=== PATIENT | female | born 1980 | race Caucasian/White ===

== ENCOUNTER 2016-10-07 15:53 | Observation (INO) | payer MEDICAID ==
[2016-10-07] MEDS ORDERED: Sodium Chloride 0.9% 10 ML Syringe FLUSH PRN (16:50)
[2016-10-07] MEDS ORDERED: Prochlorperazine 10 MG/2 ML SDV IVPUSH ONE (16:51)
[2016-10-07] MEDS ORDERED: Ketorolac 30 MG/ML SDV IVPUSH ONE (16:51)
--- NOTE | 2016-10-07 16:54 | EDM.PDOC ---
ED HPI GI/ABDOMINAL - General Chief Complaint: Gastrointestinal Problem Stated Complaint: NAUSEA/VOMITING/STOMACH PAIN Time Seen by Provider: 10/07/16 16:43 Source: Reports: Patient, Family, RN notes reviewed History Limitations: Reports: No limitations - History of Present Illness INITIAL COMMENTS - FREE TEXT/NARRATIVE: 36 yo female presents emergency department for a complaint of nausea and vomiting for the last 3 days inability to keep food products down states she vomits liquids almost immediately does have abdominal pain predominately after eating history of Taco-en-Y approximately 3 months ago, was sent over from the clinic - Related Data Allergies/ADRs: Allergies Allergy/AdvReac Type Severity Reaction Status Date / Time bupropion [From Wellbutrin] Allergy Other Verified 10/07/16 16:28 codeine Allergy Pain Verified 10/07/16 16:28 latex Allergy Rash Verified 10/07/16 16:28 pantoprazole sodium Allergy Rash Verified 10/07/16 16:28 [From Protonix] Penicillins Allergy Rash Verified 10/07/16 16:28 fentanyl AdvReac Delusions Verified 10/07/16 16:28 promethazine HCl AdvReac Delusions Verified 10/07/16 16:28 [From Phenergan] Home Meds: Home Meds Doxepin [SINEquan] 75 mg PO BEDTIME 11/30/15 [History] QUEtiapine Fumarate [Quetiapine Fumarate] 300 mg PO BEDTIME 12/17/15 [History] Albuterol Sulfate [Proair Hfa] 2 puff IH Q6H PRN 03/20/16 [History] Omeprazole 40 mg PO ACBREAKFAST 03/20/16 [History] OLANZapine [Olanzapine] 10 mg PO BEDTIME 04/23/16 [History] Levothyroxine 0.175 mcg PO DAILY 07/19/16 [History] Cyanocobalamin (Vitamin B-12) [Vitamin B-12] 1,000 mcg PO DAILY 07/22/16 [ History] Prazosin [Minpress] 1 mg PO BEDTIME 07/22/16 [History] Rizatriptan Benzoate [Maxalt] 10 mg PO ASDIRECTED PRN 07/22/16 [History] Verapamil [Calan SR] 120 mg PO DAILY 07/22/16 [History] lamoTRIgine [Lamictal] 100 mg PO DAILY 07/22/16 [History] Dicyclomine [Bentyl] 10 mg PO QID 07/24/16 [History] Zolpidem Tartrate [Ambien] 10 mg PO BEDTIME 07/24/16 [History] Ondansetron [Zofran ODT] 4 mg PO Q4H PRN #30 tab.dis 07/28/16 [Rx] FLUoxetine [PROzac] 40 mg PO DAILY 08/02/16 [History] Fluticasone/Vilanterol [Breo Ellipta 200-25 Mcg INH] 1 each IH DAILY 09/06/16 [ History] Gabapentin [Neurontin] 600 mg PO TID 09/10/16 [History] Past Medical History HEENT History: Reports: Impaired vision Other HEENT History: wears glasses Cardiovascular History: Reports: High cholesterol Respiratory History: Reports: Asthma, Bronchitis, recurrent, Sleep apnea Gastrointestinal History: Reports: Chronic constipation, Chronic diarrhea, Colon polyp, GERD, GI bleed, Irritable bowel syndrome, Other (see below) Other Gastrointestinal History: colitis, fatty liver Genitourinary History: Reports: UTI, recurrent OUTDOOR ADVENTURE GUIDES History: Reports: Dysfunctional uterine bleeding, Musculoskeletal History: Reports: Arthritis, Back pain, chronic, Fracture, Osteoarthritis, Other (see below) Other Musculoskeletal History: left foot hardware. hardware removed left foot Neurological History: Reports: Migraines Psychiatric History: Reports: Anxiety, Bipolar, Depression, Psych Hospitalization(s), PTSD, Suicide attempt, Suicidal ideation Endocrine/Metabolic History: Reports: Hypothyroidism, Obesity/BMI 30+, Vitamin D deficiency Hematologic History: Reports: B12 deficiency Immunologic History: Reports: None Oncologic (Cancer) History: Reports: None Dermatologic History: Reports: None - Infectious Disease History Infectious Disease History: Reports: Chicken pox - Past Surgical History GI Surgical History: Reports: Bariatric procedure, Cholecystectomy, Colonoscopy , EGD, Polypectomy Female Surgical History: Reports: section, Hysterectomy, Salpingo- oophorectomy Musculoskeletal Surgical History: Reports: Arthroscopic knee, Other (see below) Other Musculoskeletal Surgeries/Procedures:: L1 6 screws and a cage 2006 Social & Family History - Family History Family Medical History: Noncontributory - Tobacco Use Smoking Status *Q: Former Smoker Years of Tobacco use: 1 Packs/Tins Daily: 1 Used Tobacco, but Quit: Yes Month Tobacco Last Used: 09 Second Hand Smoke Exposure: No - Caffeine Use Caffeine Use: Reports: None - Alcohol Use Days Per Week of Alcohol Use: 0 - Recreational Drug Use Recreational Drug Use: No Drug Use in Last 12 Months: No - Living Situation & Occupation Living situation: Reports: (living at "old middle school" apartments in [facility]), single Occupation: disabled ED ROS GENERAL - Review of Systems Review Of Systems: See Below Constitutional: Denies: fever, chills HEENT: Reports: No symptoms Respiratory: Reports: no symptoms Cardiovascular: Reports: No symptoms GI/Abdominal: Reports: Abdominal pain, Flatus, Nausea, Vomiting ED EXAM, GI/ABD - Physical Exam Exam: See Below Text/Narrative:: General: female, not in any distress, alert and oriented x3 HEENT: head is atraumatic normocephalic, eyes pupils equal round reactive to light and accommodation sclera clear no conjunctivitis appreciated. Ears tympanic membranes clear and vazquez landmarks and light reflex are present bilaterally canals are clear. Nose no septal deviation, nares are clear, no blood present. Mouth mucosa is moist and pink no erythema or exudate noted in soft palate, tongue is midline uvula is midline, dentition is intact. Neck: Supple no thyromegaly no tracheal deviation. Nodes: Cervical nodes subclavicular nodes nontender no palpable lymphadenopathy noted. Lungs: clear to auscultation bilaterally with symmetrical respirations, no adventitious noise appreciated. CV: Regular rate and rhythm S1 and S2 appreciated no murmurs rubs or gallops noted. Abdomen: Soft, nontender, no palpable masses or organomegaly appreciated, no distention no guarding bowel sounds are present, ]. Neuro: Cranial nerves II through XII grossly intact Skin: Warm and dry, intact Extremities: No lower extremity edema appreciated, Course - Vital Signs Last Recorded V/S: Last Vital Signs Temp 97.0 F 10/07/16 16:18 Pulse 110 H 10/07/16 16:18 Resp 18 10/07/16 16:18 BP 118/70 10/07/16 16:18 Pulse Ox 97 10/07/16 16:18 - Orders/Labs/Meds Orders: Active Orders 24 hr Category Date Time Status Peripheral IV Care [RC] . DIRECTED Care 10/07/16 16:50 Active CULTURE URINE [RM] Urgent Lab 10/07/16 18:31 Uncollected Lactated Ringers [Ringers, Lactated] 1,000 ml Med 10/07/16 17:00 Active IV ASDIRECTED Sodium Chloride 0.9% [Saline Flush] Med 10/07/16 16:50 Active 10 ml FLUSH ASDIRECTED PRN Peripheral IV Insertion Adult [OM.PC] Urgent Oth 10/07/16 16:50 Ordered Medication Orders Lactated Ringer's (Ringers, Lactated) 1,000 mls @ 999 mls/hr IV ASDIRECTED ADRIEN Last Admin: 10/07/16 17:08 Dose: 999 mls/hr Sodium Chloride (Saline Flush) 10 ml FLUSH ASDIRECTED PRN PRN Reason: Keep Vein Open Labs: Laboratory Tests 10/07/16 10/07/16 10/07/16 Range/Units 17:01 17:01 17:01 WBC 5.1 (4.5-11.0) K/uL RBC 4.68 (3.30-5.50) M/uL Hgb 15.1 H (12.0-15.0) g/dL Hct 43.0 (36.0-48.0) % MCV 92 (80-98) fL MCH 32 H (27-31) pg MCHC 35 (32-36) % Plt Count 189 (150-400) K/uL Neut % (Auto) 56 (36-66) % Lymph % (Auto) 32 (24-44) % Marin % (Auto) 9 H (2-6) % Eos % (Auto) 2 (2-4) % Baso % (Auto) 1 (0-1) % Sodium 141 (140-148) mmol/L Potassium 3.4 L (3.6-5.2) mmol/L Chloride 104 (100-108) mmol/L Carbon Dioxide 27 (21-32) mmol/L Anion Gap 13.4 (5.0-14.0) mmol/L BUN 10 (7-18) mg/dL Creatinine 0.8 (0.6-1.0) mg/dL Est Cr Clr Drug Dosing 99.95 mL/min Estimated GFR (MDRD) > 60 (>60) Glucose 89 (74-106) mg/dL Lactic Acid 1.1 (0.4-2.0) mmol/L Calcium 8.6 (8.5-10.1) mg/dL Total Bilirubin 0.5 (0.2-1.0) mg/dL AST 33 (15-37) U/L ALT 60 (12-78) U/L Alkaline Phosphatase 93 (46-116) U/L Total Protein 6.9 (6.4-8.2) g/dL Albumin 3.8 (3.4-5.0) g/dL Globulin 3.1 (2.3-3.5) g/dL Albumin/Globulin Ratio 1.2 (1.2-2.2) Lipase 77 (73-393) U/L Urine Color Urine Appearance Urine pH (4.5-8.0) Ur Specific Uehling (1.008-1.030) Urine Protein (NEGATIVE) mg/dL Urine Glucose (UA) (NEGATIVE) mg/dL Urine Ketones (NEGATIVE) mg/dL Urine Occult Blood (NEGATIVE) Urine Nitrite (NEGATIVE) Urine Bilirubin (NEGATIVE) Urine Urobilinogen (NORMAL) mg/dL Ur Leukocyte Esterase (NEGATIVE) Urine RBC (0-5) Urine WBC (0-5) Ur Epithelial Cells Amorphous Sediment Urine Bacteria Urine Mucus Urine Other Urine HCG, Qual 10/07/16 10/07/16 Range/Units 17:19 17:19 WBC (4.5-11.0) K/uL RBC (3.30-5.50) M/uL Hgb (12.0-15.0) g/dL Hct (36.0-48.0) % MCV (80-98) fL MCH (27-31) pg MCHC (32-36) % Plt Count (150-400) K/uL Neut % (Auto) (36-66) % Lymph % (Auto) (24-44) % Marin % (Auto) (2-6) % Eos % (Auto) (2-4) % Baso % (Auto) (0-1) % Sodium (140-148) mmol/L Potassium (3.6-5.2) mmol/L Chloride (100-108) mmol/L Carbon Dioxide (21-32) mmol/L Anion Gap (5.0-14.0) mmol/L BUN (7-18) mg/dL Creatinine (0.6-1.0) mg/dL Est Cr Clr Drug Dosing mL/min Estimated GFR (MDRD) (>60) Glucose (74-106) mg/dL Lactic Acid (0.4-2.0) mmol/L Calcium (8.5-10.1) mg/dL Total Bilirubin (0.2-1.0) mg/dL AST (15-37) U/L ALT (12-78) U/L Alkaline Phosphatase (46-116) U/L Total Protein (6.4-8.2) g/dL Albumin (3.4-5.0) g/dL Globulin (2.3-3.5) g/dL Albumin/Globulin Ratio (1.2-2.2) Lipase (73-393) U/L Urine Color Yellow Urine Appearance Slightly cloudy Urine pH 6.0 (4.5-8.0) Ur Specific Uehling 1.025 (1.008-1.030) Urine Protein Negative (NEGATIVE) mg/dL Urine Glucose (UA) Normal (NEGATIVE) mg/dL Urine Ketones Negative (NEGATIVE) mg/dL Urine Occult Blood Negative (NEGATIVE) Urine Nitrite Negative (NEGATIVE) Urine Bilirubin Small (NEGATIVE) Urine Urobilinogen 8 (NORMAL) mg/dL Ur Leukocyte Esterase Large (NEGATIVE) Urine RBC 0-5 (0-5) Urine WBC 20-30 H (0-5) Ur Epithelial Cells Many Amorphous Sediment Not seen Urine Bacteria Many Urine Mucus Moderate Urine Other Urine HCG, Qual Negative Meds: Medications Generic Name Dose Route Start Last Admin Trade Name Freq PRN Reason Stop Dose Admin Lactated Ringer's 1,000 mls @ 999 mls/hr 10/07/16 17:00 10/07/16 17:08 Ringers, Lactated IV 999 mls/hr ASDIRECTED ADRIEN Administration Sodium Chloride 10 ml 10/07/16 16:50 Saline Flush FLUSH ASDIRECTED PRN Keep Vein Open Discontinued Medications Generic Name Dose Route Start Last Admin Trade Name Freq PRN Reason Stop Dose Admin Fentanyl 25 mcg 10/07/16 18:22 Sublimaze IVPUSH 10/07/16 18:23 ONETIME ONE Ketorolac Tromethamine 30 mg 10/07/16 16:51 10/07/16 17:36 Toradol IVPUSH 10/07/16 16:52 30 mg ONETIME ONE Administration Lorazepam 1 mg 10/07/16 18:22 Ativan IVPUSH 10/07/16 18:23 ONETIME ONE Prochlorperazine Edisylate 10 mg 10/07/16 16:51 10/07/16 17:30 Compazine IVPUSH 10/07/16 16:52 10 mg ONETIME ONE Administration - Re-Assessments/Exams Free Text/Narrative Re-Assessment/Exam: minimal relief of nausea for Compazine states no relief from pain medication of Toradol 10/07/16 18:25 Departure - Departure Time of Disposition: 18:32 Disposition: Admitted As Inpatient 68 Condition: fair Clinical Impression: Nausea Abdominal pain Qualifiers: Abdominal location: generalized Qualified Code(s): R10.84 - Generalized abdominal pain Forms: ED Department Discharge - My Orders Last 24 Hours: My Active Orders 10/07/16 16:50 Peripheral IV Care [RC] . DIRECTED Sodium Chloride 0.9% [Saline Flush] 10 ml FLUSH ASDIRECTED PRN Peripheral IV Insertion Adult [OM.PC] Urgent 10/07/16 17:00 Lactated Ringers [Ringers, Lactated] 1,000 ml IV ASDIRECTED 10/07/16 18:31 CULTURE URINE [RM] Urgent - Assessment/Plan Last 24 Hours: My Active Orders 10/07/16 16:50 Peripheral IV Care [RC] . DIRECTED Sodium Chloride 0.9% [Saline Flush] 10 ml FLUSH ASDIRECTED PRN Peripheral IV Insertion Adult [OM.PC] Urgent 10/07/16 17:00 Lactated Ringers [Ringers, Lactated] 1,000 ml IV ASDIRECTED 10/07/16 18:31 CULTURE URINE [RM] Urgent Plan: Assessment Acuity = acute Site and laterality = nausea and vomiting with epigastric pain constipation with history of gastric bypass Etiology = unknown etiology Manifestations = abdominal pain Location of injury = home Lab values = CBC, CMP unremarkable urinalysis does have specific gravity 1.025 consistent with intravascular volume depletion also 10-20 WBCs consistent pyuria cultures pending Plan call discussed case with Dr. Silva he recommended hospital admission for further evaluation Patient was in agreement with the plan all questions were answered, This note was dictated using [employer] voice recognition software please call with any questions.
[2016-10-07] MEDS ORDERED: Lactated Ringers 1,000 ML IV SCH (17:00)
[2016-10-07] MEDS ORDERED: fentaNYL 100 MCG/2 ML SDV IVPUSH ONE (18:22)
[2016-10-07] MEDS ORDERED: LORazepam 2 MG/ML MDV IVPUSH ONE (18:22)
[2016-10-07] MEDS ORDERED: Promethazine 6.25 MG in Sodium Chloride 0.9% 50 ML IV PRN (18:34)
[2016-10-07] MEDS ORDERED: Ondansetron 4 MG Tab.DIS PO PRN (18:37)
[2016-10-07] MEDS ORDERED: Albuterol 8 GM Inhaler INH PRN (18:37)
[2016-10-07] MEDS ORDERED: RIZATRIPTAN BENZOATE 10 MG PO PRN (18:37)
[2016-10-07] MEDS ORDERED: fentaNYL 100 MCG/2 ML SDV IVPUSH PRN (18:40)
[2016-10-07] MEDS: Lactated Ringers 1,000 ML IV SCH (20:04)
[2016-10-07] MEDS ORDERED: Prazosin 1 MG Cap PO SCH (21:00)
[2016-10-07] MEDS ORDERED: Zolpidem 5 MG Tab PO SCH (21:00)
[2016-10-07] MEDS ORDERED: DOXEPIN 75 MG PO SCH (21:00)
[2016-10-07] MEDS ORDERED: OLANZapine 5 MG Tab PO SCH (21:00)
[2016-10-07] MEDS: Gabapentin 300 MG Cap PO SCH (21:39)
[2016-10-07] MEDS: Dicyclomine 10 MG Cap PO SCH (21:42)
[2016-10-07] MEDS ORDERED: QUEtiapine 100 MG Tab ONE (21:50)
[2016-10-07] MEDS ORDERED: Doxepin 25 MG Cap ONE (21:51)
[2016-10-08] MEDS: Lactated Ringers 1,000 ML IV SCH (04:11)
[2016-10-08] MEDS: Dicyclomine 10 MG Cap PO SCH ×2 (05:49→09:47)
[2016-10-08] MEDS ORDERED: Ondansetron 4 MG/2 ML SDV IVPUSH PRN (07:06)
[2016-10-08] MEDS ORDERED: fentaNYL 100 MCG/2 ML SDV ONE (07:25)
[2016-10-08] MEDS ORDERED: Midazolam 1 MG/ML 2 ML SDV ONE (07:25)
[2016-10-08] MEDS ORDERED: Propofol 200 MG/20 ML SDV ONE (07:25)
[2016-10-08] MEDS ORDERED: Glycopyrrolate 0.2 MG/ML 2 ML SYRINGE IVPUSH ONE (07:30)
[2016-10-08] MEDS ORDERED: Omeprazole 20 MG Cap.CR PO SCH (07:30)
[2016-10-08] MEDS ORDERED: Glycopyrrolate 0.2 MG/ML SDV ONE (07:35)
[2016-10-08] MEDS ORDERED: Rizatriptan 10 MG Tab.DIS PO PRN (07:35)
[2016-10-08] MEDS ORDERED: HYDROmorphone 2 MG Tab PO PRN (08:32)
[2016-10-08] MEDS ORDERED: Cyanocobalamin (Vitamin B12) 1,000 MCG Tab PO SCH (09:00)
[2016-10-08] MEDS ORDERED: FLUTICASONE IH SCH (09:00)
[2016-10-08] MEDS ORDERED: MVI, Adult with Vitamin K 10 ML, Chromium/Copper/Mang/Selen/Zn 1 ML, Thiamine 100 MG in... IV ONE ×4 (09:00)
[2016-10-08] MEDS ORDERED: Verapamil 240 MG Tab.ER PO SCH (09:00)
[2016-10-08] MEDS ORDERED: LEVOTHYROXINE 175 MCG PO SCH (09:00)
[2016-10-08] MEDS ORDERED: VILANTEROL IH SCH (09:00)
[2016-10-08] MEDS ORDERED: lamoTRIgine 100 MG Tab PO SCH (09:00)
[2016-10-08] MEDS: Gabapentin 300 MG Cap PO SCH ×2 (09:45→13:52)
[2016-10-08] MEDS: FLUoxetine Solution 20 MG/5 ML ML 120 ML Bottle PO SCH ×2 (09:46→09:56)
[2016-10-08] MEDS ORDERED: FLUoxetine 20 MG Cap PO SCH (10:00)
[2016-10-08] MEDS ORDERED: Dextrose 5%-Lactated Ringers 1,000 ML IV SCH (10:00)
[2016-10-08 11:12] VITALS: BP 117/71
--- NOTE | 2016-10-08 17:40 | OR ---
DATE OF PROCEDURE: 10/08/2016 PREOPERATIVE DIAGNOSIS: Strictured gastrojejunostomy. POSTOPERATIVE DIAGNOSIS: Strictured gastrojejunostomy. OPERATIVE PROCEDURE: Upper gastrointestinal endoscopy, dilation of gastrojejunostomy ([id number]). ANESTHESIA: IV sedation. INDICATIONS FOR PROCEDURE: The patient admitted overnight with stricturing of her gastrojejunostomy and associated dehydration. Plan is to proceed with upper GI endoscopy with dilation as indicated. Potential risks including bleeding and perforation were discussed, and the patient wishes to proceed. DETAILS OF PROCEDURE: The patient was taken to the operating room and placed in left lateral decubitus position. IV sedation was administered, after which the upper GI endoscope was passed orally through the length of the esophagus and into the gastric pouch. No retained food or fluid was noted. The 1 cm scope was able to be just gently pushed through the anastomosis. A Bard balloon catheter was then centered across the anastomosis using fluoroscopic surveillance and inflated to a step one level, i.e., 30 psi, with a 45-Sami balloon catheter. Upon removal of the catheter, adequate dilation was confirmed with no evident complications, and the scope withdrawn. The procedure was concluded. The patient was taken to the recovery room in satisfactory condition. There were no evident complications. Marcos Silva MD /[id number]
--- NOTE | 2016-10-08 17:49 | DISCH ---
FINAL DIAGNOSES: 1. Strictured gastrojejunostomy. 2. Dehydration. 3. Bariatric surgery status. OPERATIVE PROCEDURE: Done on 10/08/2016; upper GI endoscopy with dilation gastrojejunostomy. HOSPITAL COURSE: This is a 36-year-old status post Taco-en-Y gastric bypass, presenting with some recurrent stricturing at her gastrojejunostomy. She was also appeared to be somewhat dehydrated. She was admitted overnight for hydration and this morning underwent upper GI endoscopy. She did have a moderate stricture of the gastrojejunostomy with 1 cm scope being able to be just passed through the anastomosis prior to dilation and it was dilated to 45-Romanian size and postoperatively, the patient will be discharged home later today assuming that she is tolerating the liquid diet and she will be resuming her usual home medications and follow up will be with Aparna Younger on 10/15/2016. We will give her an additional 1 L of IV before discharge which would include MVI and .
[2016-10-08] MEDS ORDERED: Doxepin 25 MG Cap PO SCH (21:00)
[2016-10-08] MEDS ORDERED: QUEtiapine 100 MG Tab PO SCH (21:00)
== END 2016-10-08 14:00 | disposition home or self-care (01) ==
LOC: JP.ED 15:53 → JP.MS 18:34
PROVIDERS: ADMIT Surgery; ATTEND Surgery
DX: K91.89 Other postprocedural complications and disorders of digestive system (principal); R10.84 Generalized abdominal pain; E86.0 Dehydration; Z98.84 Bariatric surgery status; Z88.0 Allergy status to penicillin; Z88.6 Allergy status to analgesic agent; Z91.040 Latex allergy status; Z88.8 Allergy status to other drugs, medicaments and biological substances; Z79.899 Other long term (current) drug therapy; E78.00 Pure hypercholesterolemia, unspecified; J45.909 Unspecified asthma, uncomplicated; G47.30 Sleep apnea, unspecified; K21.9 Gastro-esophageal reflux disease without esophagitis; F41.8 Other specified anxiety disorders; E03.9 Hypothyroidism, unspecified; E66.9 Obesity, unspecified; Z68.30 Body mass index [BMI] 30.0-30.9, adult; E55.9 Vitamin D deficiency, unspecified; E53.8 Deficiency of other specified B group vitamins; Z90.49 Acquired absence of other specified parts of digestive tract; Z87.891 Personal history of nicotine dependence
CPT/HCPCS: 36415; 43245; 80053; 81001; 81025; 83605; 83690; 85025; 87086; 96361; 96365; 96374; 96375; 96376; 99285; A9270; G0378; J0780; J1885; J2060; J2250; J2405; J2704; J3010; J3411; J7042; J7120; 96366; 96372

== ENCOUNTER 2016-11-15 14:13 | Emergency (ER) | payer MEDICAID, MEDICARE ==
[2016-11-15] MEDS ORDERED: Ondansetron 4 MG/2 ML SDV IVPUSH ONE (15:14)
[2016-11-15] MEDS ORDERED: HYDROmorphone 0.5 MG/0.5 ML Syringe IVPUSH ONE ×3 (15:14→17:48)
[2016-11-15] MEDS ORDERED: Sodium Chloride 0.9% 1,000 ML IV SCH ×2 (15:15→16:30)
--- NOTE | 2016-11-15 15:15 | EDM.PDOC ---
<Martha Walker - Last Filed: 11/15/16 17:49> ED HPI GI/ABDOMINAL - General Chief Complaint: Abdominal Pain Stated Complaint: ABDOMINAL PAIN, VOMITING Time Seen by Provider: 11/15/16 15:15 Source: Reports: Patient History Limitations: Reports: No limitations - History of Present Illness INITIAL COMMENTS - FREE TEXT/NARRATIVE: pt arrived with left sided abdomanal pain moving accross the abdoman. She had a loose stool this am. She has been doing some nause and vomiting for the past 2 days. Timing/Duration: Reports: Day(s):, Getting worse Location: other (radites accross to the rt.) Quality: Reports: cramping, fullness Severity: moderate Associated Symptoms (-Female): Reports: nausea/vomiting - Related Data Allergies/ADRs: Allergies Allergy/AdvReac Type Severity Reaction Status Date / Time bupropion [From Wellbutrin] Allergy Other Verified 11/15/16 14:29 codeine Allergy Pain Verified 11/15/16 14:29 latex Allergy Rash Verified 11/15/16 14:29 pantoprazole sodium Allergy Rash Verified 11/15/16 14:29 [From Protonix] Penicillins Allergy Rash Verified 11/15/16 14:29 fentanyl AdvReac Delusions Verified 11/18/16 07:04 promethazine HCl AdvReac Delusions Verified 11/15/16 14:29 [From Phenergan] Home Meds: Home Meds RX: Doxepin [SINEquan] 75 mg PO BEDTIME 11/30/15 [History] RX: QUEtiapine Fumarate [Quetiapine Fumarate] 300 mg PO BEDTIME 12/17/15 [ History] RX: Albuterol Sulfate [Proair Hfa] 2 puff IH Q6H PRN 03/20/16 [History] RX: Omeprazole 40 mg PO ACBREAKFAST 03/20/16 [History] RX: OLANZapine [Olanzapine] 10 mg PO BEDTIME 04/23/16 [History] RX: Levothyroxine 0.175 mcg PO DAILY 07/19/16 [History] RX: Cyanocobalamin (Vitamin B-12) [Vitamin B-12] 1,000 mcg PO DAILY 07/22/16 [ History] RX: Prazosin [Minpress] 1 mg PO BEDTIME 07/22/16 [History] RX: Rizatriptan Benzoate [Maxalt] 10 mg PO ASDIRECTED PRN 07/22/16 [History] RX: Verapamil [Calan SR] 120 mg PO DAILY 07/22/16 [History] RX: lamoTRIgine [Lamictal] 100 mg PO DAILY 07/22/16 [History] RX: Dicyclomine [Bentyl] 10 mg PO QID 07/24/16 [History] RX: Zolpidem Tartrate [Ambien] 10 mg PO BEDTIME 07/24/16 [History] RX: Ondansetron [Zofran ODT] 4 mg PO Q4H PRN #30 tab.dis 07/28/16 [Rx] FLUoxetine [PROzac] 40 mg PO DAILY 08/02/16 [History] Fluticasone/Vilanterol [Breo Ellipta 200-25 Mcg INH] 1 each IH DAILY 09/06/16 [ History] RX: Gabapentin [Neurontin] 600 mg PO TID 09/10/16 [History] Past Medical History HEENT History: Reports: Impaired vision Other HEENT History: wears glasses Cardiovascular History: Reports: High cholesterol Respiratory History: Reports: Asthma, Bronchitis, recurrent, Sleep apnea Gastrointestinal History: Reports: Chronic constipation, Chronic diarrhea, Colon polyp, GERD, GI bleed, Irritable bowel syndrome, Other (see below) Other Gastrointestinal History: colitis, fatty liver Genitourinary History: Reports: UTI, recurrent [employer] History: Reports: Dysfunctional uterine bleeding, Musculoskeletal History: Reports: Arthritis, Back pain, chronic, Fracture, Osteoarthritis, Other (see below) Other Musculoskeletal History: left foot hardware. hardware removed left foot Neurological History: Reports: Migraines Psychiatric History: Reports: Anxiety, Bipolar, Depression, Psych Hospitalization(s), PTSD, Suicide attempt Other Psychiatric History: suicide attempt. 2017 Endocrine/Metabolic History: Reports: Hypothyroidism, Obesity/BMI 30+, Vitamin D deficiency Hematologic History: Reports: B12 deficiency Immunologic History: Reports: None Oncologic (Cancer) History: Reports: None Dermatologic History: Reports: None - Infectious Disease History Infectious Disease History: Reports: Chicken pox - Past Surgical History GI Surgical History: Reports: Bariatric procedure, Cholecystectomy, Colonoscopy , EGD, Polypectomy Female Surgical History: Reports: section, Hysterectomy, Salpingo- oophorectomy Other Female Surgeries/Procedures: 1 ovary removed Musculoskeletal Surgical History: Reports: Arthroscopic knee, Other (see below) Other Musculoskeletal Surgeries/Procedures:: L1 6 screws and a cage 2006 Social & Family History - Family History Family Medical History: Noncontributory - Tobacco Use Smoking Status *Q: Never Smoker Years of Tobacco use: 1 Packs/Tins Daily: 1 Used Tobacco, but Quit: Yes Month Tobacco Last Used: may 2016 Second Hand Smoke Exposure: No - Caffeine Use Caffeine Use: Reports: None - Alcohol Use Days Per Week of Alcohol Use: 0 - Recreational Drug Use Recreational Drug Use: No Drug Use in Last 12 Months: No - Living Situation & Occupation Living situation: Reports: (living at "old middle school" apartments in [facility]), single Occupation: disabled ED ROS GENERAL - Review of Systems Review Of Systems: See Below Constitutional: Reports: no symptoms HEENT: Reports: No symptoms Respiratory: Reports: No Symptoms Cardiovascular: Reports: No symptoms Endocrine: Reports: no symptoms GI/Abdominal: Reports: Abdominal pain, Nausea, Vomiting : Reports: no symptoms Skin: Reports: no symptoms Neurological: Reports: No Symptoms Psychiatric: Reports: Anxiety, Depression ED EXAM, GI/ABD - Physical Exam Exam: See Below Text/Narrative:: Pt arrived with left sided abdomanal pain Exam Limited By: No limitations General Appearance: alert, no apparent distress, anxious Eyes: bilateral: normal appearance, EOMI Ears: normal TMs Nose: normal inspection Throat/Mouth: Normal inspection Head: atraumatic Neck: normal inspection Respiratory/Chest: no respiratory distress Cardiovascular: regular rate, rhythm GI/Abdominal: tenderness, other ( tenderness on the left side. ) (Female) Exam: Deferred Rectal (Female) Exam: Deferred Back Exam: normal inspection Extremities: normal inspection Course - Vital Signs Last Recorded V/S: Last Vital Signs Temp 36.8 C 11/15/16 17:55 Pulse 61 11/15/16 19:02 Resp 20 11/15/16 19:02 BP 94/58 L 11/15/16 19:02 Pulse Ox 94 L 11/15/16 19:02 - Orders/Labs/Meds Labs: Laboratory Tests 11/15/16 11/15/16 11/15/16 Range/Units 15:24 15:24 15:24 WBC 8.4 (4.5-11.0) K/uL RBC 4.75 (3.30-5.50) M/uL Hgb 15.1 H (12.0-15.0) g/dL Hct 42.9 (36.0-48.0) % MCV 90 (80-98) fL MCH 32 H (27-31) pg MCHC 35 (32-36) % Plt Count 261 (150-400) K/uL Neut % (Auto) 67 H (36-66) % Lymph % (Auto) 25 (24-44) % Humphreys % (Auto) 6 (2-6) % Eos % (Auto) 1 L (2-4) % Baso % (Auto) 0 (0-1) % Sodium 143 (140-148) mmol/L Potassium 3.2 L (3.6-5.2) mmol/L Chloride 107 (100-108) mmol/L Carbon Dioxide 27 (21-32) mmol/L Anion Gap 12.2 (5.0-14.0) mmol/L BUN 8 (7-18) mg/dL Creatinine 0.7 (0.6-1.0) mg/dL Est Cr Clr Drug Dosing 114.23 mL/min Estimated GFR (MDRD) > 60 (>60) Glucose 98 (74-106) mg/dL Calcium 8.4 L (8.5-10.1) mg/dL Total Bilirubin 0.4 (0.2-1.0) mg/dL AST 30 (15-37) U/L ALT 51 (12-78) U/L Alkaline Phosphatase 104 (46-116) U/L C-Reactive Protein 0.15 (0.0-0.3) mg/dL Total Protein 6.7 (6.4-8.2) g/dL Albumin 3.5 (3.4-5.0) g/dL Globulin 3.2 (2.3-3.5) g/dL Albumin/Globulin Ratio 1.1 L (1.2-2.2) Urine Color Urine Appearance Urine pH (4.5-8.0) Ur Specific [place] (1.008-1.030) Urine Protein (NEGATIVE) mg/dL Urine Glucose (UA) (NEGATIVE) mg/dL Urine Ketones (NEGATIVE) mg/dL Urine Occult Blood (NEGATIVE) Urine Nitrite (NEGATIVE) Urine Bilirubin (NEGATIVE) Urine Urobilinogen (NORMAL) mg/dL Ur Leukocyte Esterase (NEGATIVE) Urine RBC (0-5) Urine WBC (0-5) Ur Epithelial Cells Amorphous Sediment Urine Bacteria Urine Mucus Urine Other Urinalysis Comment 11/15/16 Range/Units 19:43 WBC (4.5-11.0) K/uL RBC (3.30-5.50) M/uL Hgb (12.0-15.0) g/dL Hct (36.0-48.0) % MCV (80-98) fL MCH (27-31) pg MCHC (32-36) % Plt Count (150-400) K/uL Neut % (Auto) (36-66) % Lymph % (Auto) (24-44) % Humphreys % (Auto) (2-6) % Eos % (Auto) (2-4) % Baso % (Auto) (0-1) % Sodium (140-148) mmol/L Potassium (3.6-5.2) mmol/L Chloride (100-108) mmol/L Carbon Dioxide (21-32) mmol/L Anion Gap (5.0-14.0) mmol/L BUN (7-18) mg/dL Creatinine (0.6-1.0) mg/dL Est Cr Clr Drug Dosing mL/min Estimated GFR (MDRD) (>60) Glucose (74-106) mg/dL Calcium (8.5-10.1) mg/dL Total Bilirubin (0.2-1.0) mg/dL AST (15-37) U/L ALT (12-78) U/L Alkaline Phosphatase (46-116) U/L C-Reactive Protein (0.0-0.3) mg/dL Total Protein (6.4-8.2) g/dL Albumin (3.4-5.0) g/dL Globulin (2.3-3.5) g/dL Albumin/Globulin Ratio (1.2-2.2) Urine Color Morrison Urine Appearance Cloudy Urine pH 6.0 (4.5-8.0) Ur Specific [place] 1.015 (1.008-1.030) Urine Protein Negative (NEGATIVE) mg/dL Urine Glucose (UA) Normal (NEGATIVE) mg/dL Urine Ketones Negative (NEGATIVE) mg/dL Urine Occult Blood Negative (NEGATIVE) Urine Nitrite Negative (NEGATIVE) Urine Bilirubin Negative (NEGATIVE) Urine Urobilinogen 1 (NORMAL) mg/dL Ur Leukocyte Esterase Negative (NEGATIVE) Urine RBC 0-5 (0-5) Urine WBC 5-10 H (0-5) Ur Epithelial Cells Moderate Amorphous Sediment Few Urine Bacteria Few Urine Mucus Few Urine Other See note Urinalysis Comment Clue cells seen Meds: Medications Discontinued Medications Generic Name Dose Route Start Last Admin Trade Name Freq PRN Reason Stop Dose Admin Hydromorphone HCl 0.5 mg 11/15/16 15:14 11/15/16 15:24 Dilaudid IVPUSH 11/15/16 15:15 0.5 mg ONETIME ONE Administration Hydromorphone HCl 0.5 mg 11/15/16 16:30 11/15/16 16:43 Dilaudid IVPUSH 11/15/16 16:31 0.5 mg ONETIME ONE Administration Hydromorphone HCl 0.5 mg 11/15/16 17:48 11/15/16 17:56 Dilaudid IVPUSH 11/15/16 17:49 0.5 mg ONETIME ONE Administration Sodium Chloride 1,000 mls @ 999 mls/hr 11/15/16 15:15 11/15/16 15:22 Normal Saline IV 999 mls/hr ASDIRECTED ADRIEN Administration Sodium Chloride 1,000 mls @ 500 mls/hr 11/15/16 16:30 11/15/16 16:40 Normal Saline IV 500 mls/hr ASDIRECTED ADRIEN Administration Sodium Chloride 89 mls @ 3.5 mls/sec 11/15/16 18:30 11/15/16 19:08 Normal Saline IV 3.5 mls/sec ASDIRECTED ADRIEN Administration Iopamidol 150 ml 11/15/16 18:17 11/15/16 19:08 Isovue-300 (61%) IV 11/16/16 18:18 150 ml . DIRECTED PRN Administration RADIOLOGY EXAM Ondansetron HCl 4 mg 11/15/16 15:14 11/15/16 15:23 Zofran IVPUSH 11/15/16 15:15 4 mg ONETIME ONE Administration - Re-Assessments/Exams Free Text/Narrative Re-Assessment/Exam: 04 Pt has normal lab work. She had dilaudid and she has not had good relief. Will procede with a cat scan of the abdoman. 17:53 Departure - Departure Disposition: Home, Self-Care 01 Clinical Impression: Nausea Instructions: Abdominal Pain, Adult, [id number] Referrals: Christian Akbar PA-C [Primary Care Provider] - Forms: ED Department Discharge Care Plan Goals: Nausea -continue present medications -order for Zofran 4mg under the tongue every 8 hours as needed for nausea and vomiting; disp 10 -consulted with Dr. Silva, reviewed labs all negative, Abdomen pelvis CT negative advise to order Zofran odt every 8 hours as needed for nausea call his Office on Thursday for recheck. <Yamilka Robertson F - Last Filed: 11/26/16 19:52> Course - Re-Assessments/Exams Free Text/Narrative Re-Assessment/Exam: 11/15/16 20:[address] report is completely negative labs negative has not vomited once in the past 6 hours since being in the ER consult with Dr. Marcos Silva, advise to treat for nausea, follow up on Thursday for recheck. Departure - Departure Time of Disposition: 20:49 Condition: good - Problem List & Annotations (1) Nausea SNOMED Code(s): 593618527 Code(s): R11.0 - NAUSEA Status: Acute Priority: Low - Problem List Review Problem List Initiated/Reviewed/Updated: Yes - Assessment/Plan Plan: Nausea -continue present medications -order for Zofran 4mg under the tongue every 8 hours as needed for nausea and vomiting; disp 10 -consulted with Dr. Silva, reviewed labs all negative, Abdomen pelvis CT negative (copy of report given to Miss Montes.) advise to order Zofran odt every 8 hours as needed for nausea call his Office on Thursday for recheck return to clinic or ER if not improved or symptoms worsen.
[2016-11-15] MEDS ORDERED: Iopamidol 612 MG/ML 150 ML Bottle IV PRN (18:17)
[2016-11-15 19:03] VITALS: BP 94/58
--- NOTE | 2016-11-17 09:08 | CR ---
Abdomen Series w Chest 1V INDICATION: Pain in the left lower abdomen. FINDINGS: Negative chest x-ray. Normal bowel gas pattern. No evidence for small bowel obstruction or free air. Postoperative changes gastric bypass, cholecystectomy, and lumbosacral spine fusion.
== END 2016-11-15 21:09 | disposition home or self-care (01) ==
LOC: JP.ED 14:13
DX: R11.0 Nausea (principal); E78.00 Pure hypercholesterolemia, unspecified; J45.909 Unspecified asthma, uncomplicated; G47.30 Sleep apnea, unspecified; M19.90 Unspecified osteoarthritis, unspecified site; K21.9 Gastro-esophageal reflux disease without esophagitis; F41.9 Anxiety disorder, unspecified; F31.9 Bipolar disorder, unspecified; E03.9 Hypothyroidism, unspecified; E11.9 Type 2 diabetes mellitus without complications; Z68.30 Body mass index [BMI] 30.0-30.9, adult; Z90.710 Acquired absence of both cervix and uterus; Z90.49 Acquired absence of other specified parts of digestive tract; Z98.84 Bariatric surgery status; Z98.890 Other specified postprocedural states; Z87.891 Personal history of nicotine dependence; Z79.899 Other long term (current) drug therapy; Z88.0 Allergy status to penicillin; Z88.5 Allergy status to narcotic agent; Z88.8 Allergy status to other drugs, medicaments and biological substances; Z91.040 Latex allergy status
CPT/HCPCS: 36415; 74022; 74177; 80053; 81001; 85025; 86140; 96361; 96374; 96375; 96376; 99285; J1170; J2405; J7030; J7040

== ENCOUNTER 2016-11-18 06:39 | Day surgery (SDC) | payer MEDICAID ==
[2016-11-18] MEDS ORDERED: Lactated Ringers 1,000 ML IV SCH (07:00)
[2016-11-18] MEDS ORDERED: Lidocaine 1% 2 ML ONE (07:22)
[2016-11-18] MEDS ORDERED: fentaNYL 100 MCG/2 ML SDV ONE (07:22)
[2016-11-18] MEDS ORDERED: Midazolam 1 MG/ML 2 ML SDV ONE (07:22)
[2016-11-18] MEDS ORDERED: Propofol 200 MG/20 ML SDV ONE (07:22)
[2016-11-18] MEDS ORDERED: Cyanocobalamin (Vitamin B12) 1,000 MCG/ML SDV IM ONE (07:30)
[2016-11-18] MEDS ORDERED: Glycopyrrolate 0.2 MG/ML 2 ML SYRINGE IVPUSH ONE (08:00)
[2016-11-18] MEDS ORDERED: MVI, Adult with Vitamin K 10 ML, Thiamine 200 MG, Chromium/Copper/Mang/Selen/Zn 1 ML in... IV ONE ×4 (08:00)
[2016-11-18] MEDS ORDERED: Ondansetron 4 MG/2 ML SDV IVPUSH ONE (08:21)
[2016-11-18 10:03] VITALS: BP 139/82
--- NOTE | 2016-11-23 15:03 | OR ---
DATE OF PROCEDURE: 11/18/2016 PREOPERATIVE DIAGNOSES: 1. Upper abdominal pain and nausea. 2. Status post gastric bypass. POSTOPERATIVE DIAGNOSES: 1. Normal upper gastrointestinal endoscopic examination. 2. Status post Taco-en-Y gastric bypass. OPERATIVE PROCEDURE: Upper gastrointestinal endoscopy with biopsy of gastric pouch for CLOtest. ANESTHESIA: IV sedation. INDICATION FOR PROCEDURE: The patient is status post Taco-en-Y gastric bypass on 07/24/2016. She is presenting with some nausea as well as upper abdominal pain. Plan is to proceed with an upper GI endoscopy with dilation as indicated as well as biopsies as needed. Potential risks including bleeding and perforation were discussed, and the patient wishes to proceed. DETAILS OF PROCEDURE: The patient was taken to the operating room and placed in a left lateral decubitus position. IV sedation was administered, after which the upper GI endoscope was passed orally through the length of the esophagus, into the gastric pouch, from there through the gastrojejunostomy, and roughly 20 cm into the Taco limb. Overall, the examination today was entirely normal. There was no inflammation in the esophagus, EG junction area, or gastric pouch. The gastrojejunostomy was widely patent and without significant inflammation, and the visualized portion of the Taco limb was unremarkable. At this point, biopsies were obtained from the gastric pouch for CLOtest and to establish patient's H. pylori status. No bleeding from the biopsy sites was seen, and the procedure was then concluded. The patient will be given a prescription for Zofran to be taken p.r.n. for nausea and to follow up with Aparna Younger in the clinic in 2 weeks. Marcos Silva MD /[id number]
== END 2016-11-18 10:12 | disposition home or self-care (01) ==
LOC: JP.SDS 06:39
PROVIDERS: ATTEND Surgery
DX: R10.10 Upper abdominal pain, unspecified (principal); R11.0 Nausea; E66.9 Obesity, unspecified; E78.5 Hyperlipidemia, unspecified; K21.9 Gastro-esophageal reflux disease without esophagitis; G47.33 Obstructive sleep apnea (adult) (pediatric); J45.909 Unspecified asthma, uncomplicated; Z98.84 Bariatric surgery status
CPT/HCPCS: 43239; 87081; J2250; J2405; J2704; J3010; J3411; J3420; J7120

== ENCOUNTER 2016-12-14 18:09 | Emergency (ER) | payer MEDICAID ==
[2016-12-14 18:22] VITALS: BP 125/83
[2016-12-14] MEDS ORDERED: HYDROmorphone 1 MG/ML Syringe IM ONE (18:45)
--- NOTE | 2016-12-14 18:51 | EDM.PDOC ---
ED HPI LOWER BACK PAIN/INJURY - General Chief Complaint: Back Pain or Injury Stated Complaint: LOWER BACK PAIN Time Seen by Provider: 12/14/16 18:30 Source: Reports: Patient, Significant Other History Limitations: Reports: No limitations - History of Present Illness INITIAL COMMENTS - FREE TEXT/NARRATIVE: Pt reports slip and fall in shower on landed on the right buttock. Radiating symptoms hx down the left leg with sciatic component which is present but now with right sided symptoms, too. No change of bowel or bladder control. Pt has not taken anything at home citing her gastric bypass as not being able to take tylenol nor ibuprofen without GI upset so she has not taken anything. Also requesting something for itching skin rash. States she gets 'itchy' spots which benadryl has not resolved. Has cats and dogs at home, cites allergy to her cat who she is attempting to find a home for. Symptom Onset Date: 12/11/16 Timing/Duration: Reports: Day(s):, Waxing/waning Location: Reports: midline, paraspinal, radiating pain Quality: Reports: Dull, Other (right leg radiation to toes 1-3) Place: home Improves with: Reports: Rest Worsens with: Reports: Medication Context: Reports: fall Associated Symptoms: Reports: Difficulty walking (due to pain) - Related Data Allergies/ADRs: Allergies Allergy/AdvReac Type Severity Reaction Status Date / Time bupropion [From Wellbutrin] Allergy Other Verified 12/14/16 18:23 codeine Allergy Pain Verified 12/14/16 18:23 latex Allergy Rash Verified 12/14/16 18:23 pantoprazole sodium Allergy Rash Verified 12/14/16 18:23 [From Protonix] Penicillins Allergy Rash Verified 12/14/16 18:23 fentanyl AdvReac Delusions Verified 12/14/16 18:23 promethazine HCl AdvReac Delusions Verified 12/14/16 18:23 [From Phenergan] Home Meds: Home Meds Doxepin [SINEquan] 75 mg PO BEDTIME 11/30/15 [History] QUEtiapine Fumarate [Quetiapine Fumarate] 300 mg PO BEDTIME 12/17/15 [History] Albuterol Sulfate [Proair Hfa] 2 puff IH Q6H PRN 03/20/16 [History] Omeprazole 40 mg PO ACBREAKFAST 03/20/16 [History] OLANZapine [Olanzapine] 10 mg PO BEDTIME 04/23/16 [History] Levothyroxine 0.175 mcg PO DAILY 07/19/16 [History] Cyanocobalamin (Vitamin B-12) [Vitamin B-12] 1,000 mcg PO DAILY 07/22/16 [ History] Prazosin [Minpress] 1 mg PO BEDTIME 07/22/16 [History] Rizatriptan Benzoate [Maxalt] 10 mg PO ASDIRECTED PRN 07/22/16 [History] Verapamil [Calan SR] 120 mg PO DAILY 07/22/16 [History] lamoTRIgine [Lamictal] 100 mg PO DAILY 07/22/16 [History] Dicyclomine [Bentyl] 10 mg PO QID 07/24/16 [History] Zolpidem Tartrate [Ambien] 10 mg PO BEDTIME 07/24/16 [History] Ondansetron [Zofran ODT] 4 mg PO Q4H PRN #30 tab.dis 07/28/16 [Rx] FLUoxetine [PROzac] 40 mg PO DAILY 08/02/16 [History] Fluticasone/Vilanterol [Breo Ellipta 200-25 Mcg INH] 1 each IH DAILY 09/06/16 [ History] Gabapentin [Neurontin] 600 mg PO TID 09/10/16 [History] Past Medical History HEENT History: Reports: Impaired vision Other HEENT History: wears glasses Cardiovascular History: Reports: High cholesterol Respiratory History: Reports: Asthma, Bronchitis, recurrent, Sleep apnea Gastrointestinal History: Reports: Chronic constipation, Chronic diarrhea, Colon polyp, GERD, GI bleed, Irritable bowel syndrome, Other (see below) Other Gastrointestinal History: colitis, fatty liver Genitourinary History: Reports: UTI, recurrent [employer] History: Reports: Dysfunctional uterine bleeding, Musculoskeletal History: Reports: Arthritis, Back pain, chronic, Fracture, Osteoarthritis, Other (see below) Other Musculoskeletal History: left foot hardware. hardware removed left foot Neurological History: Reports: Migraines Psychiatric History: Reports: Anxiety, Bipolar, Depression, Psych Hospitalization(s), PTSD, Suicide attempt Other Psychiatric History: suicide attempt Endocrine/Metabolic History: Reports: Hypothyroidism, Obesity/BMI 30+, Vitamin D deficiency Hematologic History: Reports: B12 deficiency Immunologic History: Reports: None Oncologic (Cancer) History: Reports: None Dermatologic History: Reports: None - Infectious Disease History Infectious Disease History: Reports: Chicken pox - Past Surgical History GI Surgical History: Reports: Bariatric procedure, Cholecystectomy, Colonoscopy , EGD, Polypectomy Female Surgical History: Reports: section, Hysterectomy, Salpingo- oophorectomy Other Female Surgeries/Procedures: 1 ovary removed Musculoskeletal Surgical History: Reports: Arthroscopic knee, Other (see below) Other Musculoskeletal Surgeries/Procedures:: L1 6 screws and a cage 2006 Social & Family History - Family History Family Medical History: Noncontributory - Tobacco Use Smoking Status *Q: Never Smoker Years of Tobacco use: 1 Packs/Tins Daily: 1 Used Tobacco, but Quit: Yes Month Tobacco Last Used: may 2016 Second Hand Smoke Exposure: No - Caffeine Use Caffeine Use: Reports: None - Alcohol Use Days Per Week of Alcohol Use: 0 - Recreational Drug Use Recreational Drug Use: No Drug Use in Last 12 Months: No - Living Situation & Occupation Living situation: Reports: (living at "old middle school" apartments in [facility]), single Occupation: disabled ED ROS GENERAL - Review of Systems Review Of Systems: ROS reveals no pertinent complaints other than HPI. ED EXAM,LOWER BACK PAIN/INJURY - Physical Exam Exam: See Below Exam Limited By: No limitations General Appearance: alert, WD/WN, no apparent distress (able to bend from waist forward, remove flipflops for exam. Moves lower extremities off exam table to sit upright for exam.) Eye Exam: bilateral eye: normal inspection, PERRL Head: atraumatic, normocephalic Neck: normal inspection, supple, full range of motion Respiratory/Chest: no respiratory distress, lungs clear, normal breath sounds Cardiovascular: regular rate, rhythm, no edema Back Exam: normal inspection, full range of motion, paraspinal tenderness ( bilaterally) Extremities: normal inspection, normal range of motion, non-tender, no pedal edema, normal capillary refill. No: limited range of motion Neurological: alert, normal mood/affect, normal dorsiflexion, normal plantar flexion, normal gait, normal reflexes, no motor/sensory deficits, oriented x 3. No: abnormal gait, ataxia Psychiatric: normal affect, normal mood Skin Exam: Warm, Dry, Normal color, No rash, Other (scattered excoriations on the upper extremities, pin point on arms and linear on dorsum of left hand.) Course - Vital Signs Last Recorded V/S: Last Vital Signs Temp 36.4 C 12/14/16 18:22 Pulse 74 12/14/16 18:22 Resp 16 12/14/16 18:22 BP 125/83 12/14/16 18:22 Pulse Ox 98 12/14/16 18:22 - Orders/Labs/Meds Meds: Medications Discontinued Medications Generic Name Dose Route Start Last Admin Trade Name Rianna PRN Reason Stop Dose Admin Hydromorphone HCl 1 mg 12/14/16 18:45 12/14/16 18:56 Dilaudid IM 12/14/16 18:46 1 mg ONETIME ONE Administration Departure - Departure Time of Disposition: 18:51 Disposition: Home, Self-Care 01 Condition: good Clinical Impression: Itching Low back pain with right-sided sciatica Qualifiers: Chronicity: acute Back pain laterality: right Qualified Code(s): M54.41 - Lumbago with sciatica, right side Instructions: Back Pain, Adult, Back Injury Prevention, [id number] Referrals: Christian Akbar PA-C [Primary Care Provider] - Forms: ED Department Discharge Additional Instructions: 1. Use rest, heat or ice to right low back for pain. 2. Hydrocortisone cream as needed for contact/skin itching. 3. Followup with your primary care provider if pain continues. 4. Consider non-slip mat for shower floor to prevent further falls. - Problem List & Annotations (1) Itching SNOMED Code(s): 927261253 Code(s): L29.9 - PRURITUS, UNSPECIFIED Status: Acute Priority: Medium (2) Low back pain with right-sided sciatica SNOMED Code(s): 328738845 Code(s): M54.41 - LUMBAGO WITH SCIATICA, RIGHT SIDE Status: Acute Priority: High Qualifiers: Chronicity: acute Back pain laterality: right Qualified Code(s): M54.41 - Lumbago with sciatica, right side - Problem List Review Problem List Initiated/Reviewed/Updated: Yes
== END 2016-12-14 19:05 | disposition home or self-care (01) ==
LOC: JP.ED 18:09
DX: M54.41 Lumbago with sciatica, right side (principal); L29.9 Pruritus, unspecified; E78.00 Pure hypercholesterolemia, unspecified; J45.909 Unspecified asthma, uncomplicated; K21.9 Gastro-esophageal reflux disease without esophagitis; F41.9 Anxiety disorder, unspecified; F32.9 Major depressive disorder, single episode, unspecified; F31.9 Bipolar disorder, unspecified; E03.9 Hypothyroidism, unspecified; E66.9 Obesity, unspecified; Z90.49 Acquired absence of other specified parts of digestive tract; Z98.84 Bariatric surgery status; Z90.710 Acquired absence of both cervix and uterus; Z90.721 Acquired absence of ovaries, unilateral; Z98.890 Other specified postprocedural states; Z79.899 Other long term (current) drug therapy; Z88.0 Allergy status to penicillin; Z88.5 Allergy status to narcotic agent; Z88.8 Allergy status to other drugs, medicaments and biological substances; Z91.040 Latex allergy status; W18.2XXA Fall in (into) shower or empty bathtub, initial encounter; Y92.009 Unspecified place in unspecified non-institutional (private) residence as the place of occurrence of the external cause
CPT/HCPCS: 96372; 99283; J1170

== ENCOUNTER 2016-12-20 18:49 | Emergency (ER) | payer MEDICAID | END 2016-12-20 20:31 | disposition left against medical advice (07) | LOC: JP.ED 18:49 | DX: Z53.21 Procedure and treatment not carried out due to patient leaving prior to being seen by health care provider (principal) ==

== ENCOUNTER 2016-12-23 21:10 | Emergency (ER) | payer MEDICAID ==
[2016-12-23 21:49] VITALS: BP 142/68
--- NOTE | 2016-12-23 22:03 | EDM.PDOC ---
[id number]: BACK PAIN Time Seen by Provider: 12/23/16 22:00 Source of Information: Reports: Patient History Limitations: Reports: No Limitations - History of Present Illness INITIAL COMMENTS - FREE TEXT/NARRATIVE: 36-year-old female in with chronic back pain. She's been seen at the clinic, and is on gabapentin but nothing is helping. She had an MRI of her back in August and it was normal other than postsurgical changes. Onset: Other (Chronic) Lower Back Pain Score (Numeric/FACES): 9 - Related Data Allergies Allergy/AdvReac Type Severity Reaction Status Date / Time bupropion [From Wellbutrin] Allergy Other Verified 12/23/16 21:49 codeine Allergy Pain Verified 12/23/16 21:49 latex Allergy Rash Verified 12/23/16 21:49 pantoprazole sodium Allergy Rash Verified 12/23/16 21:49 [From Protonix] Penicillins Allergy Rash Verified 12/23/16 21:49 fentanyl AdvReac Delusions Verified 12/23/16 21:49 promethazine HCl AdvReac Delusions Verified 12/23/16 21:49 [From Phenergan] Home Meds: Home Meds Doxepin [SINEquan] 75 mg PO BEDTIME 11/30/15 [History] QUEtiapine Fumarate [Quetiapine Fumarate] 300 mg PO BEDTIME 12/17/15 [History] Albuterol Sulfate [Proair Hfa] 2 puff IH Q6H PRN 03/20/16 [History] Omeprazole 40 mg PO ACBREAKFAST 03/20/16 [History] OLANZapine [Olanzapine] 10 mg PO BEDTIME 04/23/16 [History] Levothyroxine 0.175 mcg PO DAILY 07/19/16 [History] Cyanocobalamin (Vitamin B-12) [Vitamin B-12] 1,000 mcg PO DAILY 07/22/16 [ History] Prazosin [Minpress] 1 mg PO BEDTIME 07/22/16 [History] Rizatriptan Benzoate [Maxalt] 10 mg PO ASDIRECTED PRN 07/22/16 [History] Verapamil [Calan SR] 120 mg PO DAILY 07/22/16 [History] lamoTRIgine [Lamictal] 100 mg PO DAILY 07/22/16 [History] Dicyclomine [Bentyl] 10 mg PO QID 07/24/16 [History] Zolpidem Tartrate [Ambien] 10 mg PO BEDTIME 07/24/16 [History] Ondansetron [Zofran ODT] 4 mg PO Q4H PRN #30 tab.dis 07/28/16 [Rx] FLUoxetine [PROzac] 40 mg PO DAILY 08/02/16 [History] Fluticasone/Vilanterol [Breo Ellipta 200-25 Mcg INH] 1 each IH DAILY 09/06/16 [ History] Gabapentin [Neurontin] 600 mg PO TID 09/10/16 [History] Past Medical History HEENT History: Reports: Impaired Vision Other HEENT History: wears glasses Cardiovascular History: Reports: High Cholesterol Respiratory History: Reports: Asthma, Bronchitis, Recurrent, Sleep Apnea Gastrointestinal History: Reports: Chronic Constipation, Chronic Diarrhea, Colon Polyp, GERD, GI Bleed, Irritable Bowel Syndrome, Other (See Below) Other Gastrointestinal History: colitis, fatty liver Genitourinary History: Reports: UTI, 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 hardware removed left foot Neurological History: Reports: Migraines Psychiatric History: Reports: Anxiety, Bipolar, Depression, Psych Hospitalization(s), PTSD, Suicide Attempt Other Psychiatric History: suicide attempt Endocrine/Metabolic History: Reports: Hypothyroidism, Obesity/BMI 30+, Vitamin D Deficiency Hematologic History: Reports: B12 Deficiency Immunologic History: Reports: None Oncologic (Cancer) History: Reports: None Dermatologic History: Reports: None - Infectious Disease History Infectious Disease History: Reports: Chicken Pox - Past Surgical History GI Surgical History: Reports: Bariatric Procedure, Cholecystectomy, Colonoscopy , EGD, Polypectomy Female Surgical History: Reports: Section, Hysterectomy, Salpingo- Oophorectomy Neurological Surgical History: Reports: Lumbar Spine Musculoskeletal Surgical History: Reports: Arthroscopic Knee, Other (See Below) Social & Family History - Family History Family Medical History: Noncontributory - Tobacco Use Smoking Status *Q: Never Smoker Years of Tobacco use: 1 Packs/Tins Daily: 1 Used Tobacco, but Quit: Yes Month Tobacco Last Used: may 2016 Second Hand Smoke Exposure: No - Caffeine Use Caffeine Use: Reports: None - Alcohol Use Days Per Week of Alcohol Use: 0 - Recreational Drug Use Recreational Drug Use: No Drug Use in Last 12 Months: No - Living Situation & Occupation Living situation: Reports: , Single Occupation: Disabled ED ROS GENERAL - Review of Systems Review Of Systems: See Below Constitutional: Denies: Fever, Chills Respiratory: Denies: Shortness of Breath Cardiovascular: Denies: Chest Pain GI/Abdominal: Denies: Abdominal Pain Skin: Reports: No Symptoms ED EXAM,LOWER BACK PAIN/INJURY - Physical Exam Exam: See Below Exam Limited By: No Limitations General Appearance: Alert, No Apparent Distress, Other (Patient ambulates slowly because of apparent low back pain) Respiratory/Chest: No Respiratory Distress Back Exam: Paraspinal Tenderness (Even light palpation) Neurological: Alert Skin Exam: Warm, Dry Course - Vital Signs Last Recorded V/S: Last Vital Signs Temp 98.5 F 12/23/16 21:47 Pulse 78 12/23/16 21:47 Resp 16 12/23/16 21:47 BP 142/68 H 12/23/16 21:47 Pulse Ox 97 12/23/16 21:47 - Orders/Labs/Meds Meds: Medications Discontinued Medications Generic Name Dose Route Start Last Admin Trade Name Estevanq PRN Reason Stop Dose Admin Ketorolac Tromethamine 60 mg 12/23/16 22:12 12/23/16 22:18 Toradol IM 12/23/16 22:13 60 mg ONETIME ONE Administration - Re-Assessments/Exams Free Text/Narrative Re-Assessment/Exam: 12/23/16 22:18 She was given an injection of Toradol and encouraged to take 2 Aleve twice a day until her consultation with Juan Silva next week. Encouraged her to try stay active and continue the rest of her medications as prescribed. Departure - Departure Time of Disposition: 22:49 Disposition: Home, Self-Care 01 Condition: good Clinical Impression: Chronic lower back pain Qualifiers: Back pain laterality: bilateral Sciatica presence: without sciatica Qualified Code(s): M54.5 - Low back pain - Discharge Information Instructions: Back Pain, Adult Referrals: Christian Akbar PA-C [Primary Care Provider] - Forms: ED Department Discharge Care Plan Goals: Take 2 Aleve twice daily until your appointment with Dr. Silva next week. Increase activity as tolerated.
[2016-12-23] MEDS ORDERED: Ketorolac 60 MG/2 ML SDV IM ONE (22:12)
== END 2016-12-23 22:35 | disposition home or self-care (01) ==
LOC: JP.ED 21:10
DX: M54.5 Low back pain (principal); E78.00 Pure hypercholesterolemia, unspecified; J45.909 Unspecified asthma, uncomplicated; F41.9 Anxiety disorder, unspecified; F32.9 Major depressive disorder, single episode, unspecified; E03.9 Hypothyroidism, unspecified; E66.9 Obesity, unspecified; G43.909 Migraine, unspecified, not intractable, without status migrainosus; M19.90 Unspecified osteoarthritis, unspecified site; K21.9 Gastro-esophageal reflux disease without esophagitis; Z88.5 Allergy status to narcotic agent; Z88.8 Allergy status to other drugs, medicaments and biological substances; Z79.899 Other long term (current) drug therapy; Z68.30 Body mass index [BMI] 30.0-30.9, adult; Z90.49 Acquired absence of other specified parts of digestive tract; Z90.710 Acquired absence of both cervix and uterus; Z87.440 Personal history of urinary (tract) infections; Z98.84 Bariatric surgery status; Z88.0 Allergy status to penicillin; Z91.040 Latex allergy status
CPT/HCPCS: 96372; 99283; J1885

== ENCOUNTER 2017-01-02 01:11 | Emergency (ER) | payer MEDICAID ==
--- NOTE | 2017-01-02 01:36 | EDM.PDOC ---
ED HPI GENERAL MEDICAL PROBLEM - General Chief Complaint: Drug or Alcohol Abuse Stated Complaint: [facility] Time Seen by Provider: 01/02/17 01:32 Source of Information: Reports: Patient History Limitations: Reports: No Limitations - History of Present Illness INITIAL COMMENTS - FREE TEXT/NARRATIVE: History of present illness: [Patient is here with a history of first use of marijuana tonight. She came in by ambulance with little nausea anxiety and states she soiled herself. She has no other complaints. I suspect an element of paranoia as a result of the use of the drug.] Review of systems: As per history of present illness and below otherwise all systems reviewed and negative. Past medical history: As per history of present illness and as reviewed below otherwise noncontributory. Surgical history: As per history of present illness and as reviewed below otherwise noncontributory. Social history: No reported history of drug or alcohol abuse. Family history: As per history of present illness and as reviewed below otherwise noncontributory. Physical exam: HEENT: Atraumatic, normocephalic, pupils reactive, negative for conjunctival pallor or scleral icterus, mucous membranes moist, throat clear, neck supple, nontender, trachea midline. Lungs: Clear to auscultation, breath sounds equal bilaterally, chest nontender. Heart: S1S2, regular, negative for clicks, rubs, or JVD. Abdomen: Soft, nondistended, nontender. Negative for masses or hepatosplenomegaly. Pelvis: Stable nontender. Genitourinary: Deferred. Rectal: Deferred. Extremities: Atraumatic, negative for cords or calf pain. Neurovascular unremarkable. Neuro: Awake, alert, Exam nonfocal. Diagnostics: [] Therapeutics: [] Impression: [Marijuana use] Plan: [Reassured that she will be okay and that is just a matter of the drug wearing off. She stated she'll every use it again.] Definitive disposition and diagnosis as appropriate pending reevaluation and review of above. - Related Data Allergies Allergy/AdvReac Type Severity Reaction Status Date / Time bupropion [From Wellbutrin] Allergy Other Verified 12/23/16 21:49 codeine Allergy Pain Verified 12/23/16 21:49 latex Allergy Rash Verified 12/23/16 21:49 pantoprazole sodium Allergy Rash Verified 12/23/16 21:49 [From Protonix] Penicillins Allergy Rash Verified 12/23/16 21:49 fentanyl AdvReac Delusions Verified 12/23/16 21:49 promethazine HCl AdvReac Delusions Verified 12/23/16 21:49 [From Phenergan] Home Meds: Home Meds Doxepin [SINEquan] 75 mg PO BEDTIME 11/30/15 [History] QUEtiapine Fumarate [Quetiapine Fumarate] 300 mg PO BEDTIME 12/17/15 [History] Albuterol Sulfate [Proair Hfa] 2 puff IH Q6H PRN 03/20/16 [History] Omeprazole 40 mg PO ACBREAKFAST 03/20/16 [History] OLANZapine [Olanzapine] 10 mg PO BEDTIME 04/23/16 [History] Levothyroxine 0.175 mcg PO DAILY 07/19/16 [History] Cyanocobalamin (Vitamin B-12) [Vitamin B-12] 1,000 mcg PO DAILY 07/22/16 [ History] Prazosin [Minpress] 1 mg PO BEDTIME 07/22/16 [History] Rizatriptan Benzoate [Maxalt] 10 mg PO ASDIRECTED PRN 07/22/16 [History] Verapamil [Calan SR] 120 mg PO DAILY 07/22/16 [History] lamoTRIgine [Lamictal] 100 mg PO DAILY 07/22/16 [History] Dicyclomine [Bentyl] 10 mg PO QID 07/24/16 [History] Zolpidem Tartrate [Ambien] 10 mg PO BEDTIME 07/24/16 [History] Ondansetron [Zofran ODT] 4 mg PO Q4H PRN #30 tab.dis 07/28/16 [Rx] FLUoxetine [PROzac] 40 mg PO DAILY 08/02/16 [History] Fluticasone/Vilanterol [Breo Ellipta 200-25 Mcg INH] 1 each IH DAILY 09/06/16 [ History] Gabapentin [Neurontin] 600 mg PO TID 09/10/16 [History] Past Medical History HEENT History: Reports: Impaired Vision Other HEENT History: wears glasses Cardiovascular History: Reports: High Cholesterol Respiratory History: Reports: Asthma, Bronchitis, Recurrent, Sleep Apnea Gastrointestinal History: Reports: Chronic Constipation, Chronic Diarrhea, Colon Polyp, GERD, GI Bleed, Irritable Bowel Syndrome, Other (See Below) Other Gastrointestinal History: colitis, fatty liver Genitourinary History: Reports: UTI, 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 hardware removed left foot Neurological History: Reports: Migraines Psychiatric History: Reports: Anxiety, Bipolar, Depression, Psych Hospitalization(s), PTSD, Suicide Attempt Other Psychiatric History: suicide attempt Endocrine/Metabolic History: Reports: Hypothyroidism, Obesity/BMI 30+, Vitamin D Deficiency Hematologic History: Reports: B12 Deficiency Immunologic History: Reports: None Oncologic (Cancer) History: Reports: None Dermatologic History: Reports: None - Infectious Disease History Infectious Disease History: Reports: Chicken Pox - Past Surgical History Respiratory Surgical History: Reports: None GI Surgical History: Reports: Bariatric Procedure, Cholecystectomy, Colonoscopy , EGD, Polypectomy Female Surgical History: Reports: Section, Hysterectomy, Salpingo- Oophorectomy Neurological Surgical History: Reports: Lumbar Spine Musculoskeletal Surgical History: Reports: Arthroscopic Knee, Other (See Below) Dermatological Surgical History: Reports: None Social & Family History - Family History Family Medical History: Noncontributory - Tobacco Use Smoking Status *Q: Never Smoker Years of Tobacco use: 1 Packs/Tins Daily: 1 Used Tobacco, but Quit: Yes Month Tobacco Last Used: may 2016 Second Hand Smoke Exposure: No - Caffeine Use Caffeine Use: Reports: Coffee, Soda - Alcohol Use Days Per Week of Alcohol Use: 0 - Recreational Drug Use Recreational Drug Use: Yes Drug Use in Last 12 Months: No Recreational Drug Type: Reports: Marijuana/Hashish - Living Situation & Occupation Living situation: Reports: , Single Occupation: Disabled ED ROS GENERAL - Review of Systems Review Of Systems: See Below ED EXAM, BEHAVIORAL HEALTH - Physical Exam Exam: See Below COURSE, BEHAVIORAL HEALTH COMP - Course Vital Signs: Last Vital Signs Temp 36.0 C 01/02/17 01:15 Pulse 105 H 01/02/17 01:15 Resp 14 01/02/17 01:15 BP 135/87 01/02/17 01:15 Pulse Ox 94 L 01/02/17 01:15 Departure - Departure Time of Disposition: 01:35 Disposition: Home, Self-Care 01 Condition: good Clinical Impression: Marijuana use - Discharge Information Forms: ED Department Discharge Additional Instructions: I want to reaffirm your decision not to use marijuana in the future again. I wish you well
[2017-01-02 01:59] VITALS: BP 119/87
== END 2017-01-02 06:56 | disposition home or self-care (01) ==
LOC: JP.ED 01:11
DX: F12.10 Cannabis abuse, uncomplicated (principal); J45.909 Unspecified asthma, uncomplicated; K21.9 Gastro-esophageal reflux disease without esophagitis; G89.29 Other chronic pain; M54.9 Dorsalgia, unspecified; E03.9 Hypothyroidism, unspecified; E66.9 Obesity, unspecified; M19.90 Unspecified osteoarthritis, unspecified site; Z90.49 Acquired absence of other specified parts of digestive tract; Z90.89 Acquired absence of other organs; Z90.710 Acquired absence of both cervix and uterus; Z79.899 Other long term (current) drug therapy; Z91.040 Latex allergy status; Z88.0 Allergy status to penicillin; Z88.5 Allergy status to narcotic agent; Z88.8 Allergy status to other drugs, medicaments and biological substances
CPT/HCPCS: 99283

== ENCOUNTER 2017-02-02 20:17 | Emergency (ER) | payer MEDICAID ==
[2017-02-02 20:41] VITALS: BP 119/70
--- NOTE | 2017-02-02 21:36 | EDM.PDOC ---
[id number] Complaint: VOMITING Time Seen by Provider: 02/02/17 21:20 Source of Information: Reports: Patient History Limitations: Reports: No Limitations - History of Present Illness INITIAL COMMENTS - FREE TEXT/NARRATIVE: 37-year-old female claims she hasn't been able to eat or drink anything for "3 weeks". Her vitals however fine, she has good moisture in her eyes and there is no appreciable weight loss. Apparently she's been in touch with the surgical department but she didn't bother calling today. Onset: Unknown/Unsure Severity: Mild Associated Symptoms: Reports: Nausea/Vomiting (Claims nausea after eating) Mid-Anterior Chest Pain Score (Numeric/FACES): 7 - Related Data Allergies Allergy/AdvReac Type Severity Reaction Status Date / Time bupropion [From Wellbutrin] Allergy Other Verified 01/02/17 04:35 latex Allergy Rash Verified 01/02/17 04:35 pantoprazole sodium Allergy Rash Verified 01/02/17 04:35 [From Protonix] Penicillins Allergy Rash Verified 01/02/17 04:35 fentanyl AdvReac Delusions Verified 01/02/17 04:35 promethazine HCl AdvReac Delusions Verified 01/02/17 04:35 [From Phenergan] Home Meds: Home Meds Doxepin [SINEquan] 75 mg PO BEDTIME 11/30/15 [History] QUEtiapine Fumarate [Quetiapine Fumarate] 300 mg PO BEDTIME 12/17/15 [History] Albuterol Sulfate [Proair Hfa] 2 puff IH Q6H PRN 03/20/16 [History] Omeprazole 40 mg PO ACBREAKFAST 03/20/16 [History] OLANZapine [Olanzapine] 5 mg PO BEDTIME 04/23/16 [History] Levothyroxine 0.175 mcg PO DAILY 07/19/16 [History] Cyanocobalamin (Vitamin B-12) [Vitamin B-12] 1,000 mcg PO DAILY 07/22/16 [ History] Prazosin [Minpress] 1 mg PO BEDTIME 07/22/16 [History] Rizatriptan Benzoate [Maxalt] 10 mg PO ASDIRECTED PRN 07/22/16 [History] Verapamil [Calan SR] 120 mg PO DAILY 07/22/16 [History] lamoTRIgine [Lamictal] 150 mg PO DAILY 07/22/16 [History] Dicyclomine [Bentyl] 10 mg PO QID 07/24/16 [History] Zolpidem Tartrate [Ambien] 10 mg PO BEDTIME 07/24/16 [History] Ondansetron [Zofran ODT] 4 mg PO Q4H PRN #30 tab.dis 07/28/16 [Rx] FLUoxetine [PROzac] 40 mg PO DAILY 08/02/16 [History] Fluticasone/Vilanterol [Breo Ellipta 200-25 Mcg INH] 1 each IH DAILY 09/06/16 [ History] Gabapentin [Neurontin] 600 mg PO TID 09/10/16 [History] Past Medical History HEENT History: Reports: Impaired Vision Other HEENT History: wears glasses Cardiovascular History: Reports: High Cholesterol Respiratory History: Reports: Asthma, Bronchitis, Recurrent, Sleep Apnea Gastrointestinal History: Reports: Chronic Constipation, Chronic Diarrhea, Colon Polyp, GERD, GI Bleed, Irritable Bowel Syndrome, Other (See Below) Other Gastrointestinal History: colitis, fatty liver Genitourinary History: Reports: UTI, 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 hardware removed left foot Neurological History: Reports: Migraines Psychiatric History: Reports: Anxiety, Bipolar, Depression, Psych Hospitalization(s), PTSD, Suicide Attempt Other Psychiatric History: suicide attempt Endocrine/Metabolic History: Reports: Hypothyroidism, Obesity/BMI 30+, Vitamin D Deficiency Hematologic History: Reports: B12 Deficiency Immunologic History: Reports: None Oncologic (Cancer) History: Reports: None Dermatologic History: Reports: None - Infectious Disease History Infectious Disease History: Reports: Chicken Pox - Past Surgical History Respiratory Surgical History: Reports: None GI Surgical History: Reports: Bariatric Procedure, Cholecystectomy, Colonoscopy , EGD, Polypectomy Female Surgical History: Reports: Section, Hysterectomy, Salpingo- Oophorectomy Neurological Surgical History: Reports: Lumbar Spine Musculoskeletal Surgical History: Reports: Arthroscopic Knee, Other (See Below) Dermatological Surgical History: Reports: None Social & Family History - Family History Family Medical History: Noncontributory - Tobacco Use Smoking Status *Q: Never Smoker Years of Tobacco use: 1 Packs/Tins Daily: 1 Used Tobacco, but Quit: Yes Month Tobacco Last Used: may 2016 Second Hand Smoke Exposure: No - Caffeine Use Caffeine Use: Reports: None - Alcohol Use Days Per Week of Alcohol Use: 0 - Recreational Drug Use Recreational Drug Use: No Drug Use in Last 12 Months: No Recreational Drug Type: Reports: Marijuana/Hashish - Living Situation & Occupation Living situation: Reports: , Single Occupation: Disabled ED ROS GENERAL - Review of Systems Review Of Systems: See Below Constitutional: Denies: Fever, Chills Respiratory: Denies: Shortness of Breath GI/Abdominal: Reports: Abdominal Pain, Nausea Skin: Reports: No Symptoms Neurological: Reports: No Symptoms ED EXAM, GI/ABD - Physical Exam Exam: See Below Exam Limited By: No Limitations General Appearance: Alert, No Apparent Distress Eyes: Bilateral: Normal Appearance (Normal hydration no jaundice) Respiratory/Chest: No Respiratory Distress, Lungs Clear GI/Abdominal: Normal Bowel Sounds Neurological: Alert, Oriented Psychiatric: Flat Affect Skin Exam: Warm, Dry Course - Vital Signs Last Recorded V/S: Last Vital Signs Temp 98.1 F 02/02/17 20:57 Pulse 69 02/02/17 20:57 Resp 14 02/02/17 20:57 BP 119/70 02/02/17 20:57 Pulse Ox 97 02/02/17 20:57 - Re-Assessments/Exams Free Text/Narrative Re-Assessment/Exam: 02/02/17 21:37 Explained to the patient that this is an ongoing problem for 3 weeks, no acute treatment is needed but she needs to inform Aparna Younger or the surgical department tomorrow that her symptoms have persisted. Departure - Departure Time of Disposition: 21:47 Disposition: Home, Self-Care 01 Condition: Good Clinical Impression: Abdominal pain Difficulty swallowing Qualifiers: Dysphagia type: unspecified Qualified Code(s): R13.10 - Dysphagia, unspecified - Discharge Information Instructions: Abdominal Pain, Adult, Dysphagia Referrals: Christian Akbar PA-C [Primary Care Provider] - Forms: ED Department Discharge Care Plan Goals: Just liquids tonight, and inform Aparna Younger or the surgical department tomorrow that you're still having problems.
== END 2017-02-02 21:47 | disposition home or self-care (01) ==
LOC: JP.ED 20:17
DX: R10.9 Unspecified abdominal pain (principal); R13.10 Dysphagia, unspecified; E78.00 Pure hypercholesterolemia, unspecified; K21.9 Gastro-esophageal reflux disease without esophagitis; G43.909 Migraine, unspecified, not intractable, without status migrainosus; F32.9 Major depressive disorder, single episode, unspecified; F41.9 Anxiety disorder, unspecified; E03.9 Hypothyroidism, unspecified; E66.9 Obesity, unspecified; Z90.49 Acquired absence of other specified parts of digestive tract; Z98.890 Other specified postprocedural states; Z90.710 Acquired absence of both cervix and uterus; Z90.712 Acquired absence of cervix with remaining uterus; Z79.899 Other long term (current) drug therapy; Z91.040 Latex allergy status; Z88.0 Allergy status to penicillin; Z88.8 Allergy status to other drugs, medicaments and biological substances
CPT/HCPCS: 99284

== ENCOUNTER 2017-02-13 21:58 | Emergency (ER) | payer MEDICAID ==
[2017-02-14 00:20] VITALS: BP 129/48
[2017-02-14] MEDS ORDERED: Sodium Chloride 0.9% 10 ML Syringe FLUSH PRN (00:45)
[2017-02-14] MEDS ORDERED: Lactated Ringers 1,000 ML IV SCH (00:45)
[2017-02-14] MEDS ORDERED: Ondansetron 4 MG/2 ML SDV IVPUSH ONE (00:47)
[2017-02-14] MEDS ORDERED: HYDROmorphone 1 MG/ML Syringe IVPUSH ONE (00:47)
--- NOTE | 2017-02-14 00:51 | EDM.PDOC ---
ED HPI GENERAL MEDICAL PROBLEM - General Chief Complaint: Gastrointestinal Problem Stated Complaint: BOWEL Time Seen by Provider: 02/14/17 00:40 Source of Information: Reports: Patient, Old Records, RN Notes Reviewed History Limitations: Reports: No Limitations - History of Present Illness INITIAL COMMENTS - FREE TEXT/NARRATIVE: 37-year-old female presents emergency department day complaint of abdominal pain nausea vomiting diarrhea she is well known to the emergency department has history of gastric bypass denies any fevers Lower Abdominal Pain Score (Numeric/FACES): 10 - Related Data Allergies Allergy/AdvReac Type Severity Reaction Status Date / Time bupropion [From Wellbutrin] Allergy Other Verified 01/02/17 04:35 latex Allergy Rash Verified 01/02/17 04:35 pantoprazole sodium Allergy Rash Verified 01/02/17 04:35 [From Protonix] Penicillins Allergy Rash Verified 01/02/17 04:35 fentanyl AdvReac Delusions Verified 01/02/17 04:35 promethazine HCl AdvReac Delusions Verified 01/02/17 04:35 [From Phenergan] Home Meds: Home Meds Doxepin [SINEquan] 75 mg PO BEDTIME 11/30/15 [History] QUEtiapine Fumarate [Quetiapine Fumarate] 300 mg PO BEDTIME 12/17/15 [History] Albuterol Sulfate [Proair Hfa] 2 puff IH Q6H PRN 03/20/16 [History] Omeprazole 40 mg PO ACBREAKFAST 03/20/16 [History] OLANZapine [Olanzapine] 5 mg PO BEDTIME 04/23/16 [History] Levothyroxine 0.175 mcg PO DAILY 07/19/16 [History] Cyanocobalamin (Vitamin B-12) [Vitamin B-12] 1,000 mcg PO DAILY 07/22/16 [ History] Prazosin [Minpress] 1 mg PO BEDTIME 07/22/16 [History] Rizatriptan Benzoate [Maxalt] 10 mg PO ASDIRECTED PRN 07/22/16 [History] Verapamil [Calan SR] 120 mg PO DAILY 07/22/16 [History] lamoTRIgine [Lamictal] 150 mg PO DAILY 07/22/16 [History] Dicyclomine [Bentyl] 10 mg PO QID 07/24/16 [History] Zolpidem Tartrate [Ambien] 10 mg PO BEDTIME 07/24/16 [History] Ondansetron [Zofran ODT] 4 mg PO Q4H PRN #30 tab.dis 07/28/16 [Rx] FLUoxetine [PROzac] 40 mg PO DAILY 08/02/16 [History] Fluticasone/Vilanterol [Breo Ellipta 200-25 Mcg INH] 1 each IH DAILY 09/06/16 [ History] Gabapentin [Neurontin] 600 mg PO TID 09/10/16 [History] Past Medical History HEENT History: Reports: Impaired Vision Other HEENT History: wears glasses Cardiovascular History: Reports: High Cholesterol Respiratory History: Reports: Asthma, Bronchitis, Recurrent, Sleep Apnea Gastrointestinal History: Reports: Chronic Constipation, Chronic Diarrhea, Colon Polyp, GERD, GI Bleed, Irritable Bowel Syndrome, Other (See Below) Other Gastrointestinal History: colitis, fatty liver Genitourinary History: Reports: UTI, Recurrent 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 hardware removed left foot Neurological History: Reports: Migraines Psychiatric History: Reports: Anxiety, Bipolar, Depression, Psych Hospitalization(s), PTSD, Suicide Attempt Other Psychiatric History: suicide attempt Endocrine/Metabolic History: Reports: Hypothyroidism, Obesity/BMI 30+, Vitamin D Deficiency Hematologic History: Reports: B12 Deficiency Immunologic History: Reports: None Oncologic (Cancer) History: Reports: None Dermatologic History: Reports: None - Infectious Disease History Infectious Disease History: Reports: Chicken Pox - Past Surgical History Respiratory Surgical History: Reports: None GI Surgical History: Reports: Bariatric Procedure, Cholecystectomy, Colonoscopy , EGD, Polypectomy Female Surgical History: Reports: Section, Hysterectomy, Salpingo- Oophorectomy Neurological Surgical History: Reports: Lumbar Spine Musculoskeletal Surgical History: Reports: Arthroscopic Knee, Other (See Below) Dermatological Surgical History: Reports: None Social & Family History - Family History Family Medical History: Noncontributory - Tobacco Use Smoking Status *Q: Never Smoker Years of Tobacco use: 1 Packs/Tins Daily: 1 Used Tobacco, but Quit: Yes Month Tobacco Last Used: may 2016 Second Hand Smoke Exposure: No - Caffeine Use Caffeine Use: Reports: None - Alcohol Use Days Per Week of Alcohol Use: 0 - Recreational Drug Use Recreational Drug Use: No Drug Use in Last 12 Months: No Recreational Drug Type: Reports: Marijuana/Hashish - Living Situation & Occupation Living situation: Reports: , Single Occupation: Disabled ED ROS GENERAL - Review of Systems Review Of Systems: See Below Constitutional: Reports: No Symptoms HEENT: Reports: No Symptoms Respiratory: Reports: No Symptoms Cardiovascular: Reports: Dyspnea on Exertion GI/Abdominal: Reports: Abdominal Pain, Diarrhea, Nausea, Vomiting : Reports: No Symptoms Musculoskeletal: Reports: No Symptoms Skin: Reports: No Symptoms ED EXAM, GI/ABD - Physical Exam Exam: See Below Text/Narrative:: General: Obese, dramatic, histrionic, not in any distress, alert and oriented x3 HEENT: head is atraumatic normocephalic, eyes pupils equal round reactive to light, sclera clear no conjunctivitis appreciated. Ears tympanic membranes clear and vazquez landmarks and light reflex are present bilaterally canals are clear. Nose no septal deviation, nares are clear, no blood present. Mouth mucosa is moist and pink no erythema or exudate noted in soft palate, tongue is midline uvula is midline, dentition is intact. Neck: Supple no thyromegaly no tracheal deviation. Nodes: Cervical nodes subclavicular nodes nontender no palpable lymphadenopathy noted. Lungs: clear to auscultation bilaterally with symmetrical respirations, no adventitious noise appreciated. CV: Regular rate and rhythm S1 and S2 appreciated no murmurs rubs or gallops noted. Abdomen: Soft, nontender, no palpable masses or organomegaly appreciated, no distention no guarding bowel sounds are present, . Neuro: Cranial nerves II through XII grossly intact Skin: Warm and dry, intact Extremities: No lower extremity edema appreciated, pedal pulse is +2. Course - Vital Signs Last Recorded V/S: Last Vital Signs Temp 96.9 F 02/14/17 00:16 Pulse 74 02/14/17 00:16 Resp 16 02/14/17 00:16 BP 129/48 L 02/14/17 00:16 Pulse Ox 100 02/14/17 00:16 - Orders/Labs/Meds Orders: Active Orders 24 hr Category Date Time Status Peripheral IV Care [RC] . DIRECTED Care 02/14/17 00:46 Active Lactated Ringers [Ringers, Lactated] 1,000 ml Med 02/14/17 00:45 Active IV ASDIRECTED Lactated Ringers [Ringers, Lactated] 1,000 ml Med 02/14/17 04:32 Active IV BOLUS Sodium Chloride 0.9% [Saline Flush] Med 02/14/17 00:45 Active 10 ml FLUSH ASDIRECTED PRN Peripheral IV Insertion Adult [OM.PC] Urgent Oth 02/14/17 00:45 Ordered Medication Orders Lactated Ringer's (Ringers, Lactated) 1,000 mls @ 999 mls/hr IV ASDIRECTED ADRIEN Last Admin: 02/14/17 01:14 Dose: 999 mls/hr Lactated Ringer's (Ringers, Lactated) 1,000 mls @ 125 mls/hr IV BOLUS ONE Stop: 02/14/17 12:31 Last Admin: 02/14/17 04:12 Dose: 125 mls/hr Sodium Chloride (Saline Flush) 10 ml FLUSH ASDIRECTED PRN PRN Reason: Keep Vein Open Last Admin: 02/14/17 01:22 Dose: 10 ml Labs: Laboratory Tests 02/14/17 02/14/17 02/14/17 Range/Units 00:59 00:59 00:59 WBC 8.7 (4.5-11.0) K/uL RBC 4.53 (3.30-5.50) M/uL Hgb 14.6 (12.0-15.0) g/dL Hct 41.9 (36.0-48.0) % MCV 93 (80-98) fL MCH 32 H (27-31) pg MCHC 35 (32-36) % Plt Count 185 (150-400) K/uL Neut % (Auto) 60 (36-66) % Lymph % (Auto) 30 (24-44) % [place] % (Auto) 8 H (2-6) % Eos % (Auto) 2 (2-4) % Baso % (Auto) 0 (0-1) % Sodium 139 L (140-148) mmol/L Potassium 3.2 L (3.6-5.2) mmol/L Chloride 106 (100-108) mmol/L Carbon Dioxide 27 (21-32) mmol/L Anion Gap 9.2 (5.0-14.0) mmol/L BUN 8 (7-18) mg/dL Creatinine 0.8 (0.6-1.0) mg/dL Est Cr Clr Drug Dosing 99.01 mL/min Estimated GFR (MDRD) > 60 (>60) Glucose 80 (74-106) mg/dL Lactic Acid 0.8 (0.4-2.0) mmol/L Calcium 8.5 (8.5-10.1) mg/dL Total Bilirubin 0.5 (0.2-1.0) mg/dL AST 40 H (15-37) U/L ALT 56 (12-78) U/L Alkaline Phosphatase 106 (46-116) U/L Total Protein 6.6 (6.4-8.2) g/dL Albumin 3.3 L (3.4-5.0) g/dL Globulin 3.3 (2.3-3.5) g/dL Albumin/Globulin Ratio 1.0 L (1.2-2.2) Lipase 55 L (73-393) U/L Urine Color Urine Appearance Urine pH (4.5-8.0) Ur Specific [place] (1.008-1.030) Urine Protein (NEGATIVE) mg/dL Urine Glucose (UA) (NEGATIVE) mg/dL Urine Ketones (NEGATIVE) mg/dL Urine Occult Blood (NEGATIVE) Urine Nitrite (NEGATIVE) Urine Bilirubin (NEGATIVE) Urine Urobilinogen (NORMAL) mg/dL Ur Leukocyte Esterase (NEGATIVE) Urine RBC (0-5) Urine WBC (0-5) Ur Epithelial Cells Amorphous Sediment Urine Bacteria Urine Mucus Urine HCG, Qual Urine Opiates Screen (NEGATIVE) Ur Oxycodone Screen (NEGATIVE) Urine Methadone Screen (NEGATIVE) Ur Propoxyphene Screen (NEGATIVE) Ur Barbiturates Screen (NEGATIVE) Ur Tricyclics Screen (NEGATIVE) Ur Phencyclidine Scrn (NEGATIVE) Ur Amphetamine Screen (NEGATIVE) U Methamphetamines Scrn (NEGATIVE) Urine MDMA Screen (NEGATIVE) U Benzodiazepines Scrn (NEGATIVE) U Cocaine Metab Screen (NEGATIVE) U Marijuana (THC) Screen (NEGATIVE) 02/14/17 02/14/17 02/14/17 Range/Units 03:08 03:08 03:31 WBC (4.5-11.0) K/uL RBC (3.30-5.50) M/uL Hgb (12.0-15.0) g/dL Hct (36.0-48.0) % MCV (80-98) fL MCH (27-31) pg MCHC (32-36) % Plt Count (150-400) K/uL Neut % (Auto) (36-66) % Lymph % (Auto) (24-44) % [place] % (Auto) (2-6) % Eos % (Auto) (2-4) % Baso % (Auto) (0-1) % Sodium (140-148) mmol/L Potassium (3.6-5.2) mmol/L Chloride (100-108) mmol/L Carbon Dioxide (21-32) mmol/L Anion Gap (5.0-14.0) mmol/L BUN (7-18) mg/dL Creatinine (0.6-1.0) mg/dL Est Cr Clr Drug Dosing mL/min Estimated GFR (MDRD) (>60) Glucose (74-106) mg/dL Lactic Acid (0.4-2.0) mmol/L Calcium (8.5-10.1) mg/dL Total Bilirubin (0.2-1.0) mg/dL AST (15-37) U/L ALT (12-78) U/L Alkaline Phosphatase (46-116) U/L Total Protein (6.4-8.2) g/dL Albumin (3.4-5.0) g/dL Globulin (2.3-3.5) g/dL Albumin/Globulin Ratio (1.2-2.2) Lipase (73-393) U/L Urine Color Yellow Urine Appearance Clear Urine pH 5.0 (4.5-8.0) Ur Specific [place] 1.020 (1.008-1.030) Urine Protein Negative (NEGATIVE) mg/dL Urine Glucose (UA) Normal (NEGATIVE) mg/dL Urine Ketones Negative (NEGATIVE) mg/dL Urine Occult Blood Negative (NEGATIVE) Urine Nitrite Negative (NEGATIVE) Urine Bilirubin Negative (NEGATIVE) Urine Urobilinogen Normal (NORMAL) mg/dL Ur Leukocyte Esterase Negative (NEGATIVE) Urine RBC Not seen (0-5) Urine WBC Not seen (0-5) Ur Epithelial Cells Few Amorphous Sediment Not seen Urine Bacteria Not seen Urine Mucus Not seen Urine HCG, Qual Negative Urine Opiates Screen Negative (NEGATIVE) Ur Oxycodone Screen Negative (NEGATIVE) Urine Methadone Screen Negative (NEGATIVE) Ur Propoxyphene Screen Negative (NEGATIVE) Ur Barbiturates Screen Negative (NEGATIVE) Ur Tricyclics Screen Positive H (NEGATIVE) Ur Phencyclidine Scrn Negative (NEGATIVE) Ur Amphetamine Screen Negative (NEGATIVE) U Methamphetamines Scrn Negative (NEGATIVE) Urine MDMA Screen Negative (NEGATIVE) U Benzodiazepines Scrn Negative (NEGATIVE) U Cocaine Metab Screen Negative (NEGATIVE) U Marijuana (THC) Screen Negative (NEGATIVE) Meds: Medications Generic Name Dose Route Start Last Admin Trade Name Freq PRN Reason Stop Dose Admin Lactated Ringer's 1,000 mls @ 999 mls/hr 02/14/17 00:45 02/14/17 01:14 Ringers, Lactated IV 999 mls/hr ASDIRECTED ADRIEN Administration Lactated Ringer's 1,000 mls @ 125 mls/hr 02/14/17 04:32 02/14/17 04:12 Ringers, Lactated IV 02/14/17 12:31 125 mls/hr BOLUS ONE Administration Sodium Chloride 10 ml 02/14/17 00:45 02/14/17 01:22 Saline Flush FLUSH 10 ml ASDIRECTED PRN Administration Keep Vein Open Discontinued Medications Generic Name Dose Route Start Last Admin Trade Name Freq PRN Reason Stop Dose Admin Fentanyl 100 mcg 02/14/17 02:08 02/14/17 03:16 Sublimaze IVPUSH 02/14/17 02:09 100 mcg ONETIME ONE Administration Hydromorphone HCl 1 mg 02/14/17 00:47 02/14/17 01:17 Dilaudid IVPUSH 02/14/17 00:48 1 mg ONETIME ONE Administration Lactated Ringer's 1,000 mls @ 999 mls/hr 02/14/17 02:08 02/14/17 02:44 Ringers, Lactated IV 02/14/17 03:08 999 mls/hr BOLUS ONE Administration Ondansetron HCl 4 mg 02/14/17 00:47 02/14/17 01:15 Zofran IVPUSH 02/14/17 00:48 4 mg ONETIME ONE Administration Prochlorperazine Edisylate 10 mg 02/14/17 03:33 02/14/17 03:42 Compazine IVPUSH 02/14/17 03:34 10 mg ONETIME ONE Administration Departure - Departure Time of Disposition: 06:41 Disposition: Home, Self-Care 01 Condition: Poor Clinical Impression: Abdominal pain Qualifiers: Abdominal location: generalized Qualified Code(s): R10.84 - Generalized abdominal pain - Discharge Information Forms: ED Department Discharge Additional Instructions: Please follow-up with Aparna Younger in the clinic Thursday 10 AM - My Orders Last 24 Hours: My Active Orders 02/14/17 00:45 Lactated Ringers [Ringers, Lactated] 1,000 ml IV ASDIRECTED Sodium Chloride 0.9% [Saline Flush] 10 ml FLUSH ASDIRECTED PRN Peripheral IV Insertion Adult [OM.PC] Urgent 02/14/17 00:46 Peripheral IV Care [RC] . DIRECTED 02/14/17 04:32 Lactated Ringers [Ringers, Lactated] 1,000 ml IV BOLUS - Assessment/Plan Last 24 Hours: My Active Orders 02/14/17 00:45 Lactated Ringers [Ringers, Lactated] 1,000 ml IV ASDIRECTED Sodium Chloride 0.9% [Saline Flush] 10 ml FLUSH ASDIRECTED PRN Peripheral IV Insertion Adult [OM.PC] Urgent 02/14/17 00:46 Peripheral IV Care [RC] . DIRECTED 02/14/17 04:32 Lactated Ringers [Ringers, Lactated] 1,000 ml IV BOLUS Plan: Assessment Acuity = chronic Site and laterality = abdominal pain complicated patient with history of gastric bypass Etiology = unclear etiology Manifestations = vomiting and diarrhea Location of injury = Home Lab values = CBC within normal limits potassium low at 3.2 consistent hypokalemia urinalysis unremarkable urine drug positive for tricyclics Plan I did review blood work with her she found no relief from fentanyl or Dilaudid pain medication provided in the ED but was able to sleep for several hours awoke again in 10 out of 10 pain discussed the case with Dr. Silva general surgery the recommend that she follow-up in clinic on Thursday AM during her 8 hour stay well emergency department did not have one loose stool or 1 bout of emesis Patient was in agreement with the plan all questions were answered, they were instructed to return to the emergency department or call for worsening symptoms. This note was dictated using [employer] voice recognition software please call with any questions.
[2017-02-14] MEDS ORDERED: fentaNYL 100 MCG/2 ML SDV IVPUSH ONE (02:08)
[2017-02-14] MEDS ORDERED: Lactated Ringers 1,000 ML IV ONE ×2 (02:08→04:32)
[2017-02-14] MEDS ORDERED: Prochlorperazine 10 MG/2 ML SDV IVPUSH ONE (03:33)
== END 2017-02-14 07:00 | disposition home or self-care (01) ==
LOC: JP.ED 21:58
DX: R10.84 Generalized abdominal pain (principal); R11.2 Nausea with vomiting, unspecified; R19.7 Diarrhea, unspecified; Z98.84 Bariatric surgery status; E78.00 Pure hypercholesterolemia, unspecified; G47.30 Sleep apnea, unspecified; J45.909 Unspecified asthma, uncomplicated; K21.9 Gastro-esophageal reflux disease without esophagitis; K58.9 Irritable bowel syndrome, unspecified; K76.0 Fatty (change of) liver, not elsewhere classified; M19.90 Unspecified osteoarthritis, unspecified site; F41.9 Anxiety disorder, unspecified; F32.9 Major depressive disorder, single episode, unspecified; F31.9 Bipolar disorder, unspecified; F43.10 Post-traumatic stress disorder, unspecified; Z91.5 Personal history of self-harm; E03.9 Hypothyroidism, unspecified; E66.9 Obesity, unspecified; E55.9 Vitamin D deficiency, unspecified; E53.8 Deficiency of other specified B group vitamins; Z90.710 Acquired absence of both cervix and uterus; Z90.79 Acquired absence of other genital organ(s); Z90.721 Acquired absence of ovaries, unilateral; Z87.891 Personal history of nicotine dependence; Z79.899 Other long term (current) drug therapy; Z88.0 Allergy status to penicillin; Z88.8 Allergy status to other drugs, medicaments and biological substances; Z91.040 Latex allergy status
CPT/HCPCS: 36415; 80053; 80305; 81001; 81025; 83605; 83690; 85025; 96361; 96374; 96375; 99284; J0780; J1170; J2405; J3010; J7050; J7120

== ENCOUNTER 2017-02-19 10:42 | Inpatient (IN) | payer MEDICAID ==
[2017-02-19] MEDS ORDERED: Naloxone 0.4 MG/ML SDV IV PRN (11:24)
[2017-02-19] MEDS: HYDROmorphone/Normal Saline 15 MG/30 ML PCA IV PRN (12:09)
[2017-02-19] MEDS: Dextrose 5%-Lactated Ringers 1,000 ML IV SCH ×2 (12:09→17:36)
[2017-02-19] MEDS ORDERED: Iohexol 300 MG/ML 30 ML Bottle PO ONE (12:24)
[2017-02-19] MEDS: Iohexol 647 MG/ML 10 ML SDV PO ONE ×2 (12:38→14:37)
[2017-02-19] MEDS ORDERED: Iohexol 647 MG/ML 10 ML SDV PO ONE (12:45)
--- NOTE | 2017-02-19 13:05 | PCM.HP ---
H&P History of Present Illness - General Date of Service: 02/19/17 Admit Problem/Dx: Admission Diagnosis/Problem Admission Diagnosis/Problem Pain Source of Information: Patient History Limitations: Reports: No Limitations - History of Present Illness Initial Comments - Free Text/Narative: Brenna presents to the clinic for periumbilical pain that radiates to her right lower quadrant. she states the pain started last night and was stabbing a 10/10 and she couldn't sleep. Fever was 99. Nausea, vomiting and diarrhea up to 5 - 6 times a day. States everytime she eats it goes right through her. Brenna was seen in the ED in [place], [place] of 02/13/17 for left lower quadrant abdominal pain and she got pain medication and fluids. Brenna was seen in the clinic 02/16/17 for LLQ abdominal cramp like pain , diarrhea 5 - 6 times 30 minutes after eating. She had at that time been taking Loperamide She was given IV fluids at [facility] along with Zofran. C Diff was negative on 02/16/17. Improves with: Reports: None Worsens with: Reports: None Associated Symptoms: Reports: Nausea/Vomiting (diarrhea) Abdomen Pain Score (Numeric/FACES): 10 - Related Data Allergies/Adverse Reactions: Allergies Allergy/AdvReac Type Severity Reaction Status Date / Time bupropion [From Wellbutrin] Allergy Other Verified 02/16/17 12:32 latex Allergy Rash Verified 02/16/17 12:32 pantoprazole sodium Allergy Rash Verified 02/16/17 12:32 [From Protonix] Penicillins Allergy Rash Verified 02/16/17 12:32 fentanyl AdvReac Delusions Verified 02/16/17 12:32 promethazine HCl AdvReac Delusions Verified 02/16/17 12:32 [From Phenergan] Home Medications: Home Meds Doxepin [SINEquan] 75 mg PO BEDTIME 11/30/15 [History] QUEtiapine Fumarate [Quetiapine Fumarate] 300 mg PO BEDTIME 12/17/15 [History] Albuterol Sulfate [Proair Hfa] 2 puff IH Q6H PRN 03/20/16 [History] Omeprazole 40 mg PO ACBREAKFAST 03/20/16 [History] OLANZapine [Olanzapine] 5 mg PO BEDTIME 04/23/16 [History] Levothyroxine 0.175 mcg PO DAILY 07/19/16 [History] Cyanocobalamin (Vitamin B-12) [Vitamin B-12] 1,000 mcg PO DAILY 07/22/16 [ History] Prazosin [Minpress] 1 mg PO BEDTIME 07/22/16 [History] Rizatriptan Benzoate [Maxalt] 10 mg PO ASDIRECTED PRN 07/22/16 [History] Verapamil [Calan SR] 120 mg PO DAILY 07/22/16 [History] lamoTRIgine [Lamictal] 150 mg PO DAILY 07/22/16 [History] Dicyclomine [Bentyl] 10 mg PO QID 07/24/16 [History] Zolpidem Tartrate [Ambien] 10 mg PO BEDTIME 07/24/16 [History] Ondansetron [Zofran ODT] 4 mg PO Q4H PRN #30 tab.dis 07/28/16 [Rx] FLUoxetine [PROzac] 40 mg PO DAILY 08/02/16 [History] Fluticasone/Vilanterol [Breo Ellipta 200-25 Mcg INH] 1 each IH DAILY 09/06/16 [ History] Gabapentin [Neurontin] 600 mg PO TID 09/10/16 [History] Past Medical History HEENT History: Reports: Impaired Vision Other HEENT History: wears glasses Cardiovascular History: Reports: High Cholesterol Respiratory History: Reports: Asthma, Bronchitis, Recurrent, Sleep Apnea Gastrointestinal History: Reports: Chronic Constipation, Chronic Diarrhea, Colon Polyp, GERD, GI Bleed, Irritable Bowel Syndrome, Other (See Below) Other Gastrointestinal History: colitis, fatty liver Genitourinary History: Reports: UTI, Recurrent 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 hardware removed left foot Neurological History: Reports: Migraines Psychiatric History: Reports: ADHD, Anxiety, Bipolar, Depression, Psych Hospitalization(s), PTSD, Suicide Attempt Other Psychiatric History: suicide attempt Endocrine/Metabolic History: Reports: Hypothyroidism, Obesity/BMI 30+, Vitamin D Deficiency Hematologic History: Reports: B12 Deficiency Immunologic History: Reports: None Oncologic (Cancer) History: Reports: None Dermatologic History: Reports: None - Infectious Disease History Infectious Disease History: Reports: Chicken Pox - Past Surgical History Respiratory Surgical History: Reports: None GI Surgical History: Reports: Bariatric Procedure, Cholecystectomy, Colonoscopy , EGD, Polypectomy Female Surgical History: Reports: Section, Hysterectomy, Salpingo- Oophorectomy Neurological Surgical History: Reports: Lumbar Spine, Other (See Below) Other Neurological Surgeries/Procedures: 6 screws and cage in back Musculoskeletal Surgical History: Reports: Arthroscopic Knee Dermatological Surgical History: Reports: None Social & Family History - Family History Family Medical History: Noncontributory - Tobacco Use Smoking Status *Q: Former Smoker Years of Tobacco use: 1 Packs/Tins Daily: 1 Used Tobacco, but Quit: Yes Month Tobacco Last Used: may 2016 Second Hand Smoke Exposure: Yes - Caffeine Use Caffeine Use: Reports: None - Alcohol Use Days Per Week of Alcohol Use: 0 - Recreational Drug Use Recreational Drug Use: No Drug Use in Last 12 Months: No Recreational Drug Type: Reports: Marijuana/Hashish - Living Situation & Occupation Living situation: Reports: , Single Occupation: Disabled H&P Review of Systems - Review of Systems: Review Of Systems: See Below General: Reports: Weakness, Fatigue HEENT: Reports: No Symptoms Pulmonary: Reports: No Symptoms Cardiovascular: Reports: No Symptoms Gastrointestinal: Reports: Abdominal Pain, Diarrhea, Nausea, Vomiting Genitourinary: Reports: No Symptoms Musculoskeletal: Reports: No Symptoms Skin: Reports: No Symptoms Psychiatric: Reports: No Symptoms Neurological: Reports: No Symptoms Hematologic/Lymphatic: Reports: No Symptoms Immunologic: Reports: No Symptoms Exam - Exam Exam: See Below - Vital Signs Weight: 232 lb 8 oz - Exam General: Oriented, Severe Distress HEENT: PERRLA Neck: Supple Lungs: Clear to Auscultation, Normal Respiratory Effort Cardiovascular: Regular Rate, Regular Rhythm Abdomen: Guarding, Rigidity, Tenderness (in darlene umbilical area and right lower quadrant ) (Female) Exam: Deferred Rectal (Female) Exam: Deferred Back Exam: Normal Inspection, Full Range of Motion Extremities: Normal Inspection Skin: Warm, Dry, Intact Neurological: Cranial Nerves Intact, Reflexes Equal Bilateral Neuro Extensive - Mental Status: Withdraws to Pain Neuro Extensive - Motor, Sensory, Reflexes: CN II-XII Intact Psychiatric: Other (in acute pain) - Patient Data Lab Results Last 24 hrs: Laboratory Results - last 24 hr 02/19/17 02/19/17 Range/Units 11:19 12:10 Urine Color Yellow Urine Appearance Clear Urine pH 5.0 (4.5-8.0) Ur Specific [place] 1.005 L (1.008-1.030) Urine Protein Negative (NEGATIVE) mg/dL Urine Glucose (UA) Normal (NEGATIVE) mg/dL Urine Ketones Negative (NEGATIVE) mg/dL Urine Occult Blood Negative (NEGATIVE) Urine Nitrite Negative (NEGATIVE) Urine Bilirubin Negative (NEGATIVE) Urine Urobilinogen Normal (NORMAL) mg/dL Ur Leukocyte Esterase Negative (NEGATIVE) Urine RBC Not seen (0-5) Urine WBC Not seen (0-5) Ur Epithelial Cells Few Amorphous Sediment Not seen Urine Bacteria Not seen Urine Mucus Not seen Urine Opiates Screen Negative (NEGATIVE) Ur Oxycodone Screen Negative (NEGATIVE) Urine Methadone Screen Negative (NEGATIVE) Ur Propoxyphene Screen Negative (NEGATIVE) Ur Barbiturates Screen Negative (NEGATIVE) Ur Tricyclics Screen Positive H (NEGATIVE) Ur Phencyclidine Scrn Negative (NEGATIVE) Ur Amphetamine Screen Negative (NEGATIVE) U Methamphetamines Scrn Negative (NEGATIVE) Urine MDMA Screen Negative (NEGATIVE) U Benzodiazepines Scrn Negative (NEGATIVE) U Cocaine Metab Screen Negative (NEGATIVE) U Marijuana (THC) Screen Negative (NEGATIVE) *Q Meaningful Use (ADM) - VTE *Q VTE Criteria *Q: - Stroke *Q Stroke Criteria *Q: - AMI *Q AMI Criteria *Q: - Problem List (1) Abdominal pain SNOMED Code(s): 20793382 ICD Code: R10.9 - UNSPECIFIED ABDOMINAL PAIN Status: Acute Current Visit : No Qualifiers: Abdominal location: generalized Qualified Code(s): R10.84 - Generalized abdominal pain Problem List Initiated/Reviewed/Updated: Yes Orders Last 24hrs: Assessment: RLQ Abdominal Pain Diarrhea with negative stool testing for C Diff Dehydration SP RNY Gastric Bypass Surgery Unspecified Surgical Malabsorption Vitamin B Deficiency Plan: Active Orders 24 hr Category Date Time Status Admission Status [Patient Status] [ADT] Routine ADT 02/19/17 10:30 Active Up ad [place]ka [RC] ASDIRECTED Care 02/19/17 12:05 Active Vital Signs [RC] Q4H Care 02/19/17 12:05 Active NPO Now [Nothing per Oral Now Diet] [DIET] Diet 07/13/17 Dinner Active Abdomen Pelvis w Cont [CT] Stat Exams 02/19/17 12:06 Ordered CULTURE URINE [RM] Routine Lab 02/19/17 12:14 Received Dextrose 5%-Lactated Ringers 1,000 ml Med 02/19/17 11:30 Active IV ASDIRECTED HYDROmorphone/Normal Saline [Dilaudid DECATING MACHINE OPERATOR 15 MG in NS Med 02/19/17 11:24 Active 30 ML] 0 mg IV ASDIRECTED PRN Naloxone [Narcan] Med 02/19/17 11:24 Active 0.1 mg IV ASDIRECTED PRN Ondansetron [Zofran] Med 02/19/17 11:23 Active 4 mg IVPUSH Q4H PRN SCD [Sequential Compression Device] [OM.PC] Routine Oth 02/19/17 12:08 Ordered Medication Orders Hydromorphone HCl (Dilaudid Linoleum Printer 15 Mg In Ns 30 Ml) 0 mg IV ASDIRECTED PRN; Protocol PRN Reason: DECATING MACHINE OPERATOR PAIN CONTROL Last Admin: 02/19/17 12:09 Dose: 15 mg Dextrose/Lactated Ringer's (Dextrose 5%-Lactated Ringers) 1,000 mls @ 150 mls/ hr IV ASDIRECTED ADRIEN Last Admin: 02/19/17 12:09 Dose: 150 mls/hr Naloxone HCl (Narcan) 0.1 mg IV ASDIRECTED PRN PRN Reason: decreased respiratory rate Ondansetron HCl (Zofran) 4 mg IVPUSH Q4H PRN PRN Reason: Nausea Aparna Carisa Osman Plan of admission pending CT of Abdomen 2 nights and 3 days
[2017-02-19] MEDS: Ondansetron 4 MG/2 ML SDV IVPUSH PRN ×2 (13:41→20:27)
[2017-02-19] MEDS ORDERED: Iopamidol 612 MG/ML 150 ML Bottle IV PRN ×2 (14:37→14:38)
[2017-02-19] MEDS ORDERED: Sodium Chloride 0.9% 100 ML IV SCH (14:45)
--- NOTE | 2017-02-19 14:53 | CT ---
Abdomen Pelvis w Cont Total DLP 1431 mGycm. INDICATION: rt lower abdominal pain/ dehydration COMPARISON: CT January 29, 2017 FINDINGS: Postoperative changes gastric bypass and cholecystectomy. Postoperative changes lower lumb ar spine. Fatty infiltration of the liver. Dominant follicles in the right ovary, similar to prior e xam. The appendix is not visualized but there are no secondary signs for acute appendicitis. Spleen, adrenal glands, and kidneys are unremarkable. Pancreas is negative. No evidence for small or large bowel wall thickening or inflammatory change. Exam otherwise unremarkable. IMPRESSION: 1. No acute findings in the abdomen or pelvis.
[2017-02-19] MEDS: Acetaminophen 500 MG Tab PO SCH ×2 (15:34→20:55)
[2017-02-19] MEDS: Prochlorperazine 25 MG Supp RECTAL PRN (17:35)
[2017-02-19] MEDS ORDERED: Ketorolac 60 MG/2 ML SDV IM ONE (20:24)
[2017-02-20] MEDS: Dextrose 5%-Lactated Ringers 1,000 ML IV SCH ×2 (00:32→07:39)
[2017-02-20] MEDS: HYDROmorphone/Normal Saline 15 MG/30 ML PCA IV PRN (02:06)
[2017-02-20] MEDS: Acetaminophen 500 MG Tab PO SCH ×2 (03:48→09:35)
[2017-02-20] MEDS: Ondansetron 4 MG/2 ML SDV IVPUSH PRN (03:53)
[2017-02-20] MEDS: Prochlorperazine 25 MG Supp RECTAL PRN (10:00)
[2017-02-20 11:14] VITALS: BP 91/64
--- NOTE | 2017-02-21 04:14 | DISCH ---
ADMISSION DIAGNOSES: 1. Right lower quadrant abdominal pain. 2. Nausea and vomiting. 3. Dehydration. 4. Status post Taco-en-Y gastric bypass surgery. 5. Unspecified surgical malabsorption and B12 deficiency. 6. Hypercholesterolemia. 7. Asthma. 8. Sleep apnea, uses continuous positive airway pressure. 9. Irritable bowel syndrome. 10.Colitis. 11.Fatty liver. 12.Osteoarthritis. 13.Chronic back pain. 14.Attention-deficit hyperactivity disorder, anxiety, bipolar, depression, psych hospitalization, post-traumatic stress disorder, and 1 suicide attempt. 15.Hypothyroidism. 16.Vitamin D deficiency. DISCHARGE DIAGNOSES: 1. Drug-seeking behavior. 2. Resolution of right lower quadrant abdominal pain. No nausea or vomiting. HISTORY: Brenna Montes was seen in the emergency room on 02/13/2017. She followed up in the clinic on 02/16/2017 for left abdominal crampy pain with diarrhea 5 to 6 times a day. She was given IV fluids both on 02/13/2017 and 02/16/2017. She did have a negative C. diff. She presented to the clinic on , 02/19/2017, with right periumbilical abdominal pain that radiated to the right lower. She was diaphoretic 05/19. She stated she was up all night. Color was pale. She was admitted to the hospital. A CT was obtained and it was negative. She appeared quite ill when she was in the hospital, unable to walk or stand up due to abdominal pain. When she was admitted to the hospital, she was able to stand, go back and forth to the bathroom without any difficulty. She was given IV of D5 LR and Dilaudid [employer]. She had no emesis. She did receive Zofran. Throughout her hospital stay, she did request more narcotics. Reported a headache, was given IM Toradol 60 mg. Had some urinary retention, was unable to void. She had a bladder scan, but was able to void after that. Requested for more narcotics or higher doses in addition to the Dilaudid [employer]. She did have an emesis where nursing found that she had just dumped her food with milk on top in an emesis bag. She was confronted on this and did not deny her action. Brenna with a negative CT scan, lab values looked good. She was able to be discharged to home on 02/20/2017. REVIEW OF SYSTEMS: HEENT: Negative. Wears corrective lenses for near sightedness. Headache has improved. NECK: Negative. HEART: No chest pain, shortness of breath, or fast or irregular heart beat. LUNGS: No cough. GASTROINTESTINAL: As above. : Negative for UTI signs and symptoms. MUSCULOSKELETAL: Reports chronic back pain. NEUROLOGIC: No headaches. PSYCHIATRIC: Denies any exacerbation in anxiety and depression. ENDOCRINE: Reports fatigue. PSYCHOSOCIAL: Reports having no money, does not get her food stamps for a couple of more weeks and has a dog, which she spends her money on. This has been ongoing social problem with Brenna. Review of systems negative for any pertinent positives and negatives. PHYSICAL EXAMINATION: GENERAL: Brenna Montes is a 37-year-old female. VITAL SIGNS: Height is 5 feet 8 inches. Weight is 232 pounds. TPR 96.1, 73, 16, and blood pressure 116/48. HEENT: Negative. NECK: Supple. HEART: Regular rate and rhythm. LUNGS: Clear. ABDOMEN: Soft and nontender. EXTREMITIES: Without peripheral edema. NEUROLOGIC: Intact. DISPOSITION: Discharged to home. CONDITION: Stable and improving. FOLLOWUP: With Aparna Younger PA-C, on 02/20/2017 at 10:00 a.m. HOME MEDICATIONS: Celebrex 200 mg 1 daily for 14 days. She is to resume her home medications. DIET AFTER DISCHARGE: Step-4 gastric bypass diet. ACTIVITY: Resume normal activity. May shower. DISCHARGE INSTRUCTIONS: Notify provider if any increased pain, nausea, or vomiting. Discussion regarding referral to behavioral health therapist and to [facility] or rn case mgr in regard to having no money or food, and to help her manage her budget a little bit better.
== END 2017-02-20 12:30 | disposition home or self-care (01) | DRG 392 ==
LOC: JP.MS 10:42
PROVIDERS: ADMIT Surgery; ATTEND Surgery
DX: R10.31 Right lower quadrant pain (principal); Z76.5 Malingerer [conscious simulation]; R11.2 Nausea with vomiting, unspecified; E86.0 Dehydration; E53.8 Deficiency of other specified B group vitamins; E78.00 Pure hypercholesterolemia, unspecified; J45.909 Unspecified asthma, uncomplicated; G47.33 Obstructive sleep apnea (adult) (pediatric); K52.9 Noninfective gastroenteritis and colitis, unspecified; K76.0 Fatty (change of) liver, not elsewhere classified; M19.90 Unspecified osteoarthritis, unspecified site; M54.9 Dorsalgia, unspecified; G89.29 Other chronic pain; F90.9 Attention-deficit hyperactivity disorder, unspecified type; F41.8 Other specified anxiety disorders; E03.9 Hypothyroidism, unspecified; E55.9 Vitamin D deficiency, unspecified; Z98.84 Bariatric surgery status; Z88.8 Allergy status to other drugs, medicaments and biological substances; Z91.040 Latex allergy status; Z88.0 Allergy status to penicillin; Z79.899 Other long term (current) drug therapy; Z87.891 Personal history of nicotine dependence
CPT/HCPCS: 74177; 74177-26; 80305; 81001; 87086; 94762; A9270-GY; J1170; J1885; J2405; J7030; J7042

== ENCOUNTER 2017-03-05 21:12 | Emergency (ER) | payer MEDICAID ==
[2017-03-05] MEDS ORDERED: hydrOXYzine HCl 100 MG/2 ML SDV IM ONE (22:23)
[2017-03-05] MEDS ORDERED: Ondansetron 4 MG/2 ML SDV IVPUSH ONE (22:31)
[2017-03-05] MEDS ORDERED: HYDROmorphone 1 MG/ML Syringe IM ONE (23:19)
[2017-03-05 23:49] VITALS: BP 109/86
[2017-03-06] MEDS ORDERED: HYDROmorphone 1 MG/ML Syringe IVPUSH ONE (00:35)
[2017-03-06] MEDS ORDERED: Sodium Chloride 0.9% 10 ML Syringe FLUSH PRN (00:41)
--- NOTE | 2017-03-06 02:09 | EDM.PDOC ---
ED HPI GENERAL MEDICAL PROBLEM - General Chief Complaint: Abdominal Pain Stated Complaint: MEDICAL VIA [facility] Time Seen by Provider: 03/05/17 22:20 Source of Information: Reports: Patient History Limitations: Reports: No Limitations - History of Present Illness INITIAL COMMENTS - FREE TEXT/NARRATIVE: History of present illness: [37-year-old female who is well-known to our emergency room department presenting with abdominal pain. She is status post Taco-en-Y bypass. She's lost a little over 100 pounds. She barely ate at [employer] and then presented to us in extreme abdominal pain. She feels like her pouches stretching. She is having some nausea with this but no vomiting. Passing gas seems to relieve her pain.] Review of systems: As per history of present illness and below otherwise all systems reviewed and negative. Past medical history: As per history of present illness and as reviewed below otherwise noncontributory. Surgical history: As per history of present illness and as reviewed below otherwise noncontributory. Social history: No reported history of drug or alcohol abuse. Family history: As per history of present illness and as reviewed below otherwise noncontributory. Physical exam: HEENT: Atraumatic, normocephalic, Lungs: Clear to auscultation, breath sounds equal bilaterally, chest nontender. Heart: S1S2, regular, negative for clicks, rubs, or JVD. Abdomen: Examination of the abdomen reveals periumbilical pain on palpation with hypoactive bowel sounds. No masses appreciated. Pelvis: Stable nontender. Genitourinary: Deferred. Rectal: Deferred. Extremities: Atraumatic, negative for cords or calf pain. Neurovascular unremarkable. Neuro: Awake, alert, oriented. Exam nonfocal. Diagnostics: [] Therapeutics: [She was given IM Dilaudid and IM Vistaril.] Impression: [Chronic abdominal pain] Plan: [She is discharged in stable condition feeling better after receiving the IM medications. I did discuss with her her diet and that eating food from [employer] is probably not a good idea and that it is likely that this will occur again if she eats and that kind of food.] Definitive disposition and diagnosis as appropriate pending reevaluation and review of above. abdominal pain Pain Score (Numeric/FACES): 10 - Related Data Allergies Allergy/AdvReac Type Severity Reaction Status Date / Time bupropion [From Wellbutrin] Allergy Other Verified 03/05/17 21:19 latex Allergy Rash Verified 03/05/17 21:19 pantoprazole sodium Allergy Rash Verified 03/05/17 21:19 [From Protonix] Penicillins Allergy Rash Verified 03/05/17 21:19 fentanyl AdvReac Delusions Verified 03/05/17 21:19 promethazine HCl AdvReac Delusions Verified 03/05/17 21:19 [From Phenergan] Home Meds: Home Meds Doxepin [SINEquan] 75 mg PO BEDTIME 11/30/15 [History] QUEtiapine Fumarate [Quetiapine Fumarate] 300 mg PO BEDTIME 12/17/15 [History] Albuterol Sulfate [Proair Hfa] 2 puff IH Q6H PRN 03/20/16 [History] Omeprazole 40 mg PO ACBREAKFAST 03/20/16 [History] OLANZapine [Olanzapine] 5 mg PO BEDTIME 04/23/16 [History] Levothyroxine 0.175 mcg PO DAILY 07/19/16 [History] Cyanocobalamin (Vitamin B-12) [Vitamin B-12] 1,000 mcg PO DAILY 07/22/16 [ History] Prazosin [Minpress] 1 mg PO BEDTIME 07/22/16 [History] Rizatriptan Benzoate [Maxalt] 10 mg PO ASDIRECTED PRN 07/22/16 [History] Verapamil [Calan SR] 120 mg PO DAILY 07/22/16 [History] lamoTRIgine [Lamictal] 150 mg PO DAILY 07/22/16 [History] Dicyclomine [Bentyl] 10 mg PO QID 07/24/16 [History] Zolpidem Tartrate [Ambien] 10 mg PO BEDTIME 07/24/16 [History] Ondansetron [Zofran ODT] 4 mg PO Q4H PRN #30 tab.dis 07/28/16 [Rx] FLUoxetine [PROzac] 40 mg PO DAILY 08/02/16 [History] Fluticasone/Vilanterol [Breo Ellipta 200-25 Mcg INH] 1 each IH DAILY 09/06/16 [ History] Gabapentin [Neurontin] 600 mg PO TID 09/10/16 [History] Celecoxib [CeleBREX] 200 mg PO DAILY #14 cap 02/20/17 [Rx] Past Medical History HEENT History: Reports: Impaired Vision Other HEENT History: wears glasses Cardiovascular History: Reports: High Cholesterol Respiratory History: Reports: Asthma, Bronchitis, Recurrent, Sleep Apnea Gastrointestinal History: Reports: Chronic Constipation, Chronic Diarrhea, Colon Polyp, GERD, GI Bleed, Irritable Bowel Syndrome, Other (See Below) Other Gastrointestinal History: colitis, fatty liver Genitourinary History: Reports: UTI, Recurrent [employer] TECHNICIAN 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 hardware removed left foot Neurological History: Reports: Migraines Psychiatric History: Reports: ADHD, Anxiety, Bipolar, Depression, Psych Hospitalization(s), PTSD, Suicide Attempt Other Psychiatric History: suicide attempt Endocrine/Metabolic History: Reports: Hypothyroidism, Obesity/BMI 30+, Vitamin D Deficiency Hematologic History: Reports: B12 Deficiency Immunologic History: Reports: None Oncologic (Cancer) History: Reports: None Dermatologic History: Reports: None - Infectious Disease History Infectious Disease History: Reports: Chicken Pox - Past Surgical History Respiratory Surgical History: Reports: None GI Surgical History: Reports: Bariatric Procedure, Cholecystectomy, Colonoscopy , EGD, Polypectomy Female Surgical History: Reports: Section, Hysterectomy, Salpingo- Oophorectomy Neurological Surgical History: Reports: Lumbar Spine, Other (See Below) Other Neurological Surgeries/Procedures: 6 screws and cage in back Musculoskeletal Surgical History: Reports: Arthroscopic Knee Dermatological Surgical History: Reports: None Social & Family History - Family History Family Medical History: Noncontributory - Tobacco Use Smoking Status *Q: Former Smoker Years of Tobacco use: 1 Packs/Tins Daily: 1 Used Tobacco, but Quit: Yes Month Tobacco Last Used: May Second Hand Smoke Exposure: Yes - Caffeine Use Caffeine Use: Reports: None - Alcohol Use Days Per Week of Alcohol Use: 0 - Recreational Drug Use Recreational Drug Use: No Drug Use in Last 12 Months: No Recreational Drug Type: Reports: Marijuana/Hashish - Living Situation & Occupation Living situation: Reports: , Single Occupation: Disabled ED ROS GENERAL - Review of Systems Review Of Systems: ROS reveals no pertinent complaints other than HPI. ED EXAM, GI/ABD - Physical Exam Exam: See Below Course - Vital Signs Last Recorded V/S: Last Vital Signs Temp 36.8 C 03/05/17 21:19 Pulse 54 L 03/05/17 23:48 Resp 16 03/05/17 23:48 BP 109/86 03/05/17 23:48 Pulse Ox 93 L 03/05/17 23:48 - Orders/Labs/Meds Orders: Active Orders 24 hr Category Date Time Status Sodium Chloride 0.9% [Saline Flush] Med 03/06/17 00:41 Active 10 ml FLUSH ASDIRECTED PRN Medication Orders Sodium Chloride (Saline Flush) 10 ml FLUSH ASDIRECTED PRN PRN Reason: IV Use Last Admin: 03/06/17 00:42 Dose: 10 ml Meds: Medications Generic Name Dose Route Start Last Admin Trade Name Freq PRN Reason Stop Dose Admin Sodium Chloride 10 ml 03/06/17 00:41 03/06/17 00:42 Saline Flush FLUSH 10 ml ASDIRECTED PRN Administration IV Use Discontinued Medications Generic Name Dose Route Start Last Admin Trade Name Freq PRN Reason Stop Dose Admin Hydromorphone HCl 1 mg 03/05/17 23:19 03/06/17 00:43 Dilaudid IM 03/05/17 23:20 Not Given ONETIME ONE Hydromorphone HCl 1 mg 03/06/17 00:35 03/06/17 00:37 Dilaudid IVPUSH 03/06/17 00:36 1 mg ONETIME ONE Administration Hydroxyzine HCl 50 mg 03/05/17 22:23 03/05/17 22:45 Vistaril IM 03/05/17 22:24 50 mg ONETIME ONE Administration Ondansetron HCl 4 mg 03/05/17 22:31 03/05/17 22:40 Zofran IVPUSH 03/05/17 22:32 4 mg ONETIME ONE Administration Departure - Departure Time of Disposition: 02:08 Disposition: Home, Self-Care 01 Condition: Good Clinical Impression: Chronic abdominal pain - Discharge Information Forms: ED Department Discharge Additional Instructions: As we discussed I would recommend that you avoid eating fast foods and stick to the diet that was recommended to you by Dr. Silva. - My Orders Last 24 Hours: My Active Orders 03/06/17 00:41 Sodium Chloride 0.9% [Saline Flush] 10 ml FLUSH ASDIRECTED PRN - Assessment/Plan Last 24 Hours: My Active Orders 03/06/17 00:41 Sodium Chloride 0.9% [Saline Flush] 10 ml FLUSH ASDIRECTED PRN
== END 2017-03-06 02:20 | disposition home or self-care (01) ==
LOC: JP.ED 21:12
DX: R10.33 Periumbilical pain (principal); G89.29 Other chronic pain; E78.00 Pure hypercholesterolemia, unspecified; J45.909 Unspecified asthma, uncomplicated; K21.9 Gastro-esophageal reflux disease without esophagitis; M19.90 Unspecified osteoarthritis, unspecified site; E03.9 Hypothyroidism, unspecified; E66.9 Obesity, unspecified; F41.9 Anxiety disorder, unspecified; G43.909 Migraine, unspecified, not intractable, without status migrainosus; F32.9 Major depressive disorder, single episode, unspecified; F43.10 Post-traumatic stress disorder, unspecified; Z87.891 Personal history of nicotine dependence; Z87.440 Personal history of urinary (tract) infections; Z79.2 Long term (current) use of antibiotics; Z79.899 Other long term (current) drug therapy; Z91.040 Latex allergy status; Z88.0 Allergy status to penicillin; Z88.8 Allergy status to other drugs, medicaments and biological substances; Z98.84 Bariatric surgery status; Z98.890 Other specified postprocedural states
CPT/HCPCS: 96372; 96374; 96375; 99284; J1170; J2405; J3410; J7050

== ENCOUNTER 2017-03-14 22:15 | Emergency (ER) | payer MEDICAID ==
[2017-03-14 22:36] VITALS: BP 121/65
--- NOTE | 2017-03-14 22:50 | EDM.PDOC ---
ED HPI GENERAL MEDICAL PROBLEM - General Chief Complaint: Lower Extremity Injury/Pain Stated Complaint: SURGERY GUS WANTS PAIN MEDS Time Seen by Provider: 03/14/17 22:26 Source of Information: Reports: Patient, Old Records, RN Notes Reviewed History Limitations: Reports: No Limitations - History of Present Illness INITIAL COMMENTS - FREE TEXT/NARRATIVE: 37-year-old female presents emergency department day complaint of poor pain control she is postoperative knee arthroscoping on 03/12/2017 was provided hydrocodone for pain control, evaluated by her surgeon yesterday, at that time surgery no reveals normal healing process however she states her pain is not under control with the hydrocodone and she is unable to ambulate due to the pain right knee Pain Score (Numeric/FACES): 8 - Related Data Allergies Allergy/AdvReac Type Severity Reaction Status Date / Time bupropion [From Wellbutrin] Allergy Other Verified 03/14/17 22:30 latex Allergy Rash Verified 03/14/17 22:30 pantoprazole sodium Allergy Rash Verified 03/14/17 22:30 [From Protonix] Penicillins Allergy Rash Verified 03/14/17 22:30 fentanyl AdvReac Delusions Verified 03/14/17 22:30 promethazine HCl AdvReac Delusions Verified 03/14/17 22:30 [From Phenergan] Home Meds: Home Meds Doxepin [SINEquan] 75 mg PO BEDTIME 11/30/15 [History] QUEtiapine Fumarate [Quetiapine Fumarate] 300 mg PO BEDTIME 12/17/15 [History] Albuterol Sulfate [Proair Hfa] 2 puff IH Q6H PRN 03/20/16 [History] Omeprazole 40 mg PO ACBREAKFAST 03/20/16 [History] OLANZapine [Olanzapine] 5 mg PO BEDTIME 04/23/16 [History] Levothyroxine 0.175 mcg PO DAILY 07/19/16 [History] Cyanocobalamin (Vitamin B-12) [Vitamin B-12] 1,000 mcg PO DAILY 07/22/16 [ History] Prazosin [Minpress] 1 mg PO BEDTIME 07/22/16 [History] Rizatriptan Benzoate [Maxalt] 10 mg PO ASDIRECTED PRN 07/22/16 [History] Verapamil [Calan SR] 120 mg PO DAILY 07/22/16 [History] lamoTRIgine [Lamictal] 150 mg PO DAILY 07/22/16 [History] Dicyclomine [Bentyl] 10 mg PO QID 07/24/16 [History] Zolpidem Tartrate [Ambien] 10 mg PO BEDTIME 07/24/16 [History] Ondansetron [Zofran ODT] 4 mg PO Q4H PRN #30 tab.dis 07/28/16 [Rx] FLUoxetine [PROzac] 40 mg PO DAILY 08/02/16 [History] Fluticasone/Vilanterol [Breo Ellipta 200-25 Mcg INH] 1 each IH DAILY 09/06/16 [ History] Gabapentin [Neurontin] 600 mg PO TID 09/10/16 [History] Celecoxib [CeleBREX] 200 mg PO DAILY #14 cap 02/20/17 [Rx] Hydrocodone/Acetaminophen [Hydrocodon-Acetaminophen 5-325] 1 tab PO Q4H [History] Past Medical History HEENT History: Reports: Impaired Vision Other HEENT History: wears glasses Cardiovascular History: Reports: High Cholesterol Respiratory History: Reports: Asthma, Bronchitis, Recurrent, Sleep Apnea Gastrointestinal History: Reports: Chronic Constipation, Chronic Diarrhea, Colon Polyp, GERD, GI Bleed, Irritable Bowel Syndrome, Other (See Below) Other Gastrointestinal History: colitis, fatty liver Genitourinary History: Reports: UTI, Recurrent 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 hardware removed left foot Neurological History: Reports: Migraines Psychiatric History: Reports: ADHD, Anxiety, Bipolar, Depression, Psych Hospitalization(s), PTSD, Suicide Attempt Other Psychiatric History: suicide attempt Endocrine/Metabolic History: Reports: Hypothyroidism, Obesity/BMI 30+, Vitamin D Deficiency Hematologic History: Reports: B12 Deficiency Immunologic History: Reports: None Oncologic (Cancer) History: Reports: None Dermatologic History: Reports: None - Infectious Disease History Infectious Disease History: Reports: Chicken Pox - Past Surgical History Respiratory Surgical History: Reports: None GI Surgical History: Reports: Bariatric Procedure, Cholecystectomy, Colonoscopy , EGD, Polypectomy Female Surgical History: Reports: Section, Hysterectomy, Salpingo- Oophorectomy Neurological Surgical History: Reports: Lumbar Spine, Other (See Below) Other Neurological Surgeries/Procedures: 6 screws and cage in back Musculoskeletal Surgical History: Reports: Arthroscopic Knee Dermatological Surgical History: Reports: None Social & Family History - Family History Family Medical History: Noncontributory - Tobacco Use Smoking Status *Q: Never Smoker Years of Tobacco use: 1 Packs/Tins Daily: 1 Used Tobacco, but Quit: Yes Month Tobacco Last Used: May Second Hand Smoke Exposure: Yes - Caffeine Use Caffeine Use: Reports: None - Alcohol Use Days Per Week of Alcohol Use: 0 - Recreational Drug Use Recreational Drug Use: No Drug Use in Last 12 Months: No Recreational Drug Type: Reports: Marijuana/Hashish - Living Situation & Occupation Living situation: Reports: , Single Occupation: Disabled Review of Systems - Review of Systems Review Of Systems: See Below Constitutional: Reports: No Symptoms Cardiovascular: Reports: No Symptoms GI/Abdominal: Reports: No Symptoms Musculoskeletal: Reports: Joint Pain (Right knee pain) Skin: Reports: No Symptoms ED EXAM, GENERAL - Physical Exam Exam: See Below Free Text/Narrative:: Examination the right knee I don't appreciate any erythema surgical wounds clean dry and intact she will not tolerate any amount exam is tender to the touch has difficulty ambulating Course - Vital Signs Last Recorded V/S: Last Vital Signs Temp 97.5 F 03/14/17 22:35 Pulse 70 03/14/17 22:35 Resp 16 03/14/17 22:35 BP 121/65 03/14/17 22:35 Pulse Ox 94 L 03/14/17 22:35 - Orders/Labs/Meds Orders: Active Orders 24 hr Category Date Time Status DME for Discharge [COMM] Per Unit Routine Oth 03/14/17 22:44 Ordered Departure - Departure Time of Disposition: 22:50 Disposition: Home, Self-Care 01 Condition: Poor Clinical Impression: Postoperative pain of right knee - Discharge Information Forms: ED Department Discharge Additional Instructions: Continue using Tylenol for baseline pain use oxycodone for breakthrough pain please contact her surgeon on Thursday - My Orders Last 24 Hours: My Active Orders 03/14/17 22:44 DME for Discharge [COMM] Per Unit Routine - Assessment/Plan Last 24 Hours: My Active Orders 03/14/17 22:44 DME for Discharge [COMM] Per Unit Routine Plan: Assessment Acuity = acute Site and laterality = postop day 3 right knee arthroscopically Etiology = postsurgical pain Manifestations = none Location of injury = Home Lab values = none Plan Pain medications changed to oxycodone total #10 tablets also provided crutches she is instructed to call her surgeon on Thursday Patient was in agreement with the plan all questions were answered, they were instructed to return to the emergency department or call for worsening symptoms. This note was dictated using [employer] voice recognition software please call with any questions.
== END 2017-03-14 22:58 | disposition home or self-care (01) ==
LOC: JP.ED 22:15
DX: M25.561 Pain in right knee (principal); G89.18 Other acute postprocedural pain; E78.00 Pure hypercholesterolemia, unspecified; J45.909 Unspecified asthma, uncomplicated; K21.9 Gastro-esophageal reflux disease without esophagitis; M19.90 Unspecified osteoarthritis, unspecified site; F31.9 Bipolar disorder, unspecified; E03.9 Hypothyroidism, unspecified; E66.9 Obesity, unspecified; Z68.43 Body mass index [BMI] 50.0-59.9, adult; Z87.440 Personal history of urinary (tract) infections; Z98.84 Bariatric surgery status; Z90.49 Acquired absence of other specified parts of digestive tract; Z90.710 Acquired absence of both cervix and uterus; Z90.721 Acquired absence of ovaries, unilateral; Z98.890 Other specified postprocedural states; Z88.0 Allergy status to penicillin; Z88.8 Allergy status to other drugs, medicaments and biological substances; Z91.040 Latex allergy status; Z79.899 Other long term (current) drug therapy
CPT/HCPCS: 99283

== ENCOUNTER 2017-04-17 12:33 | Emergency (ER) | payer MEDICAID ==
[2017-04-17 13:00] VITALS: BP 119/76
[2017-04-17] MEDS ORDERED: Prochlorperazine 5 MG in Sodium Chloride 0.9% 50 ML IV ONE (13:11)
[2017-04-17] MEDS ORDERED: Lactated Ringers 1,000 ML IV ONE (13:11)
[2017-04-17] MEDS ORDERED: Sodium Chloride 0.9% 10 ML Syringe FLUSH PRN (13:11)
[2017-04-17] MEDS ORDERED: diphenhydrAMINE 50 MG/ML SDV IVPUSH ONE (13:12)
[2017-04-17] MEDS ORDERED: Dexamethasone 4 MG/ML SDV IVPUSH ONE ×2 (13:13→14:35)
--- NOTE | 2017-04-17 13:23 | EDM.PDOC ---
ED HPI GENERAL MEDICAL PROBLEM - General Chief Complaint: Headache Stated Complaint: MIGRAINE Time Seen by Provider: 04/17/17 13:00 Source of Information: Reports: Patient History Limitations: Reports: No Limitations - History of Present Illness INITIAL COMMENTS - FREE TEXT/NARRATIVE: Alonzo presents to the emergency room today with complaints of a migraine for four days. She reports no relief with use of verapamil, rizatriptan, naproxen as directed. She also reports she presented to the clinic yesterday, saw Dr. Saul, received toradol IM without relief. She complains of nausea and feeling unsteady. She denies photophobia, vomiting, change in mental status or bowel and bladder habits. Quality: Reports: Pressure, Stabbing, Throbbing, Other (Pain to temples. ) Improves with: Reports: None Worsens with: Reports: None Headache Pain Score (Numeric/FACES): 8 - Related Data Allergies Allergy/AdvReac Type Severity Reaction Status Date / Time bupropion [From Wellbutrin] Allergy Other Verified 04/17/17 12:52 latex Allergy Rash Verified 04/17/17 12:52 pantoprazole sodium Allergy Rash Verified 04/17/17 12:52 [From Protonix] Penicillins Allergy Rash Verified 04/17/17 12:52 fentanyl AdvReac Delusions Verified 04/17/17 12:52 promethazine HCl AdvReac Delusions Verified 04/17/17 12:52 [From Phenergan] Home Meds: Home Meds Doxepin [SINEquan] 75 mg PO BEDTIME 11/30/15 [History] QUEtiapine Fumarate [Quetiapine Fumarate] 300 mg PO BEDTIME 12/17/15 [History] Albuterol Sulfate [Proair Hfa] 2 puff IH Q6H PRN 03/20/16 [History] Omeprazole 40 mg PO ACBREAKFAST 03/20/16 [History] OLANZapine [Olanzapine] 5 mg PO BEDTIME 04/23/16 [History] Levothyroxine 0.175 mcg PO DAILY 07/19/16 [History] Cyanocobalamin (Vitamin B-12) [Vitamin B-12] 1,000 mcg PO DAILY 07/22/16 [ History] Prazosin [Minpress] 1 mg PO BEDTIME 07/22/16 [History] Rizatriptan Benzoate [Maxalt] 10 mg PO ASDIRECTED PRN 07/22/16 [History] Verapamil [Calan SR] 120 mg PO DAILY 07/22/16 [History] lamoTRIgine [Lamictal] 150 mg PO DAILY 07/22/16 [History] Dicyclomine [Bentyl] 10 mg PO QID 07/24/16 [History] Zolpidem Tartrate [Ambien] 10 mg PO BEDTIME 07/24/16 [History] Ondansetron [Zofran ODT] 4 mg PO Q4H PRN #30 tab.dis 07/28/16 [Rx] FLUoxetine [PROzac] 40 mg PO DAILY 08/02/16 [History] Fluticasone/Vilanterol [Breo Ellipta 200-25 Mcg INH] 1 each IH DAILY 09/06/16 [ History] Celecoxib [CeleBREX] 200 mg PO DAILY #14 cap 02/20/17 [Rx] Past Medical History HEENT History: Reports: Impaired Vision Other HEENT History: wears glasses Cardiovascular History: Reports: High Cholesterol Respiratory History: Reports: Asthma, Bronchitis, Recurrent, Sleep Apnea Gastrointestinal History: Reports: Chronic Constipation, Chronic Diarrhea, Colon Polyp, GERD, GI Bleed, Irritable Bowel Syndrome, Other (See Below) Other Gastrointestinal History: colitis, fatty liver Genitourinary History: Reports: UTI, Recurrent 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 hardware removed left foot Neurological History: Reports: Migraines Psychiatric History: Reports: ADHD, Anxiety, Bipolar, Depression, Psych Hospitalization(s), PTSD, Suicide Attempt Other Psychiatric History: suicide attempt Endocrine/Metabolic History: Reports: Hypothyroidism, Obesity/BMI 30+, Vitamin D Deficiency Hematologic History: Reports: B12 Deficiency Immunologic History: Reports: None Oncologic (Cancer) History: Reports: None Dermatologic History: Reports: None - Infectious Disease History Infectious Disease History: Reports: Chicken Pox - Past Surgical History Respiratory Surgical History: Reports: None GI Surgical History: Reports: Bariatric Procedure, Cholecystectomy, Colonoscopy , EGD, Polypectomy Female Surgical History: Reports: Section, Hysterectomy, Salpingo- Oophorectomy Neurological Surgical History: Reports: Lumbar Spine, Other (See Below) Other Neurological Surgeries/Procedures: 6 screws and cage in back Musculoskeletal Surgical History: Reports: Arthroscopic Knee Dermatological Surgical History: Reports: None Social & Family History - Family History Family Medical History: Noncontributory - Tobacco Use Smoking Status *Q: Never Smoker Years of Tobacco use: 1 Packs/Tins Daily: 1 Used Tobacco, but Quit: Yes Month Tobacco Last Used: May Second Hand Smoke Exposure: Yes - Caffeine Use Caffeine Use: Reports: None - Alcohol Use Days Per Week of Alcohol Use: 0 - Recreational Drug Use Recreational Drug Use: No Drug Use in Last 12 Months: No Recreational Drug Type: Reports: Marijuana/Hashish - Living Situation & Occupation Living situation: Reports: , Single Occupation: Disabled ED ROS GENERAL - Review of Systems Review Of Systems: See Below Constitutional: Denies: Fever, Chills, Malaise, Weakness, Night Sweats, Decreased Appetite HEENT: Denies: Dental Pain, Ear Pain, Eye Pain, Sinus Problem, Vertigo, Vision Change Respiratory: Denies: Shortness of Breath, Wheezing, Cough, Sputum, Hemoptysis Cardiovascular: Denies: Chest Pain, Blood Pressure Problem, Dyspnea on Exertion , Edema, Lightheadedness, Palpitations, Syncope Endocrine: Reports: No Symptoms GI/Abdominal: Reports: Nausea. Denies: Abdominal Pain, Constipation, Diarrhea, Difficulty Swallowing, Melena, Vomiting : Denies: Dysuria, Flank Pain, Frequency, Hematuria, Incontinence Musculoskeletal: Reports: No Symptoms Skin: Denies: Bruising, Pruritis, Rash, Lesions Neurological: Reports: Dizziness, Headache. Denies: Confusion, Numbness, Seizure, Tingling, Trouble Speaking, Difficulty Walking, Weakness, Gait Disturbance Psychiatric: Denies: Agitation, Anxiety, Confusion, Depression, Homicidal Ideation, Suicidal Ideation Hematologic/Lymphatic: Reports: No Symptoms Immunologic: Reports: No Symptoms - Physical Exam Exam: See Below Text/Narrative:: Brenna is an alert, oriented 37 year old female presenting with migraine for 4 days. Use of triptan, NSAID have not been effective. She reports nausea with migraine, denies vomiting or photophobia. She has a follow up appointment with Christian Akbar NP for review of her migraines in the next week. Exam Limited By: No Limitations General Appearance: Alert, WD/WN, Mild Distress Eye Exam: Bilateral Eye: EOMI, Normal Fundi, Normal Inspection, PERRL Ears: Normal External Exam, Normal Canal, Hearing Grossly Normal, Normal TMs Nose: Normal Inspection, Normal Mucosa, No Blood Throat/Mouth: Normal Inspection, Normal Teeth, Normal Gums, Normal Oropharynx, Normal Voice, No Airway Compromise, Other (mucus membranes dry) Head Exam: Atraumatic, Normocephalic Neck: Normal Inspection, Supple, Non-Tender, Full Range of Motion Respiratory/Chest: No Respiratory Distress, Lungs Clear, Normal Breath Sounds, No Accessory Muscle Use, Chest Non-Tender Cardiovascular: Normal Peripheral Pulses, Regular Rate, Rhythm, No Edema, No Gallop, No Murmur, No Rub Neuro Exam (Abbreviated): Alert, Oriented, CN II-XII Intact, Normal Cognition, Normal Gait, Normal Reflexes, No Motor/Sensory Deficits DTR: 2+: Achilles (R), Achilles (L) Back Exam: Normal Inspection, Full Range of Motion. No: CVA Tenderness (R), CVA Tenderness (L) Extremities: Normal Inspection, Normal Range of Motion, Non-Tender, No Pedal Edema, Normal Capillary Refill Psychiatric: Normal Affect, Normal Mood Skin Exam: Warm, Dry, Intact, Normal Color, No Rash Course - Vital Signs Last Recorded V/S: Last Vital Signs Temp 36.6 C 04/17/17 12:59 Pulse 67 04/17/17 12:59 Resp 14 04/17/17 12:59 BP 119/76 04/17/17 12:59 Pulse Ox 96 04/17/17 12:59 - Orders/Labs/Meds Orders: Active Orders 24 hr Category Date Time Status Sodium Chloride 0.9% [Saline Flush] Med 04/17/17 13:11 Active 10 ml FLUSH ASDIRECTED PRN Saline Lock Insert [OM.PC] Routine Oth 04/17/17 13:11 Ordered Medication Orders Sodium Chloride (Saline Flush) 10 ml FLUSH ASDIRECTED PRN PRN Reason: Keep Vein Open Last Admin: 04/17/17 14:13 Dose: 10 ml Meds: Medications Generic Name Dose Route Start Last Admin Trade Name Freq PRN Reason Stop Dose Admin Sodium Chloride 10 ml 04/17/17 13:11 04/17/17 14:13 Saline Flush FLUSH 10 ml ASDIRECTED PRN Administration Keep Vein Open Discontinued Medications Generic Name Dose Route Start Last Admin Trade Name Freq PRN Reason Stop Dose Admin Dexamethasone 4 mg 04/17/17 13:13 04/17/17 13:37 Dexamethasone IVPUSH 04/17/17 13:14 4 mg ONETIME ONE Administration Diphenhydramine HCl 50 mg 04/17/17 13:12 04/17/17 13:34 Benadryl IVPUSH 04/17/17 13:13 50 mg ONETIME ONE Administration Haloperidol Lactate 5 mg 04/17/17 14:16 04/17/17 14:25 Haldol IVPUSH 04/17/17 14:17 5 mg ONETIME ONE Administration Lactated Ringer's 1,000 mls @ 1,000 mls/hr 04/17/17 13:11 04/17/17 14:14 Ringers, Lactated IV 04/17/17 14:10 1,000 mls/hr BOLUS ONE Administration Prochlorperazine Edisylate 5 51 mls @ 150 mls/hr 04/17/17 13:11 04/17/17 13: 41 mg/ Sodium Chloride IV 04/17/17 13:31 150 mls/hr ONETIME ONE Administration - Re-Assessments/Exams Free Text/Narrative Re-Assessment/Exam: 04/17/17 13:24 We will provide IV hydration along with non-opiate medication management. Patient in agreement. 04/17/17 14:28 Patient reports no relief of migraine at this time. Haldol ordered. 04/17/17 14:55 Patient reports migraine has resolved. Patient will be discharged. Departure - Departure Time of Disposition: 14:51 Disposition: Home, Self-Care 01 Condition: Fair Clinical Impression: Migraine - Discharge Information Instructions: Migraine Headache, [id number] Referrals: Christian Akbar PA-C [Primary Care Provider] - Forms: ED Department Discharge Additional Instructions: You have been treated for migraine with IV fluids, compazine, benadryl, dexamethasone and haldol IV. Keep yourself hydrated. Start medrol dose pack if you migraine returns prior to your clinic visit next Thursday. Follow up with your primary care provider as scheduled. - My Orders Last 24 Hours: My Active Orders 04/17/17 13:11 Sodium Chloride 0.9% [Saline Flush] 10 ml FLUSH ASDIRECTED PRN Saline Lock Insert [OM.PC] Routine - Assessment/Plan Last 24 Hours: My Active Orders 04/17/17 13:11 Sodium Chloride 0.9% [Saline Flush] 10 ml FLUSH ASDIRECTED PRN Saline Lock Insert [OM.PC] Routine Assessment:: Migraine Plan: Patient treated for migraine with IV fluids, compazine, benadryl, dexamethasone and haldol IV. She was instructed to keep herself hydrated. Start medrol dose pack if you migraine returns prior to her clinic visit next Thursday. Follow up with your primary care provider as scheduled. Return for worsening, issues or concerns.
[2017-04-17] MEDS ORDERED: Haloperidol Lactate 5 MG/ML SDV IVPUSH ONE (14:16)
== END 2017-04-17 15:17 | disposition home or self-care (01) ==
LOC: JP.ED 12:33
DX: G43.909 Migraine, unspecified, not intractable, without status migrainosus (principal); E78.00 Pure hypercholesterolemia, unspecified; J45.909 Unspecified asthma, uncomplicated; K21.9 Gastro-esophageal reflux disease without esophagitis; Z87.440 Personal history of urinary (tract) infections; F90.9 Attention-deficit hyperactivity disorder, unspecified type; M19.90 Unspecified osteoarthritis, unspecified site; E03.9 Hypothyroidism, unspecified; E66.9 Obesity, unspecified; Z79.899 Other long term (current) drug therapy; Z91.040 Latex allergy status; Z88.0 Allergy status to penicillin; Z88.8 Allergy status to other drugs, medicaments and biological substances
CPT/HCPCS: 96361; 96365; 96375; 99283; J0780; J1100; J1200; J1630; J7050; J7120

== ENCOUNTER 2017-05-16 13:01 | Emergency (ER) | payer MEDICAID ==
[2017-05-16 13:17] VITALS: BP 117/71
[2017-05-16] MEDS ORDERED: Cyclobenzaprine 10 MG Tab PO ONE (13:37)
[2017-05-16] MEDS ORDERED: HYDROmorphone 1 MG/ML Syringe IM ONE (13:37)
--- NOTE | 2017-05-16 13:40 | EDM.PDOC ---
ED HPI GENERAL MEDICAL PROBLEM - General Chief Complaint: Back Pain or Injury Stated Complaint: LOW BACK PAIN Time Seen by Provider: 05/16/17 13:28 Source of Information: Reports: Patient, RN Notes Reviewed History Limitations: Reports: No Limitations - History of Present Illness INITIAL COMMENTS - FREE TEXT/NARRATIVE: 37-year-old female presents emergency department day complaint of low back pain , she injured herself 4 days ago when moving her mattress, she does complain of loose stools she has a history of diarrhea she's noticed her stools have been more loose over the last 4 days but only at night she has no problem with loss of bowel or bladder during the day no numbness or tingling in the toes however she does complain of a numb patch that is along the lateral aspect of the left leg Lower Back Pain Score (Numeric/FACES): 8 - Related Data Allergies Allergy/AdvReac Type Severity Reaction Status Date / Time bupropion [From Wellbutrin] Allergy Other Verified 04/17/17 12:52 latex Allergy Rash Verified 04/17/17 12:52 pantoprazole sodium Allergy Rash Verified 04/17/17 12:52 [From Protonix] Penicillins Allergy Rash Verified 04/17/17 12:52 fentanyl AdvReac Delusions Verified 04/17/17 12:52 promethazine HCl AdvReac Delusions Verified 04/17/17 12:52 [From Phenergan] Home Meds: Home Meds Doxepin [SINEquan] 75 mg PO BEDTIME 11/30/15 [History] QUEtiapine Fumarate [Quetiapine Fumarate] 300 mg PO BEDTIME 12/17/15 [History] Albuterol Sulfate [Proair Hfa] 2 puff IH Q6H PRN 03/20/16 [History] Omeprazole 40 mg PO ACBREAKFAST 03/20/16 [History] OLANZapine [Olanzapine] 5 mg PO BEDTIME 04/23/16 [History] Levothyroxine 0.175 mcg PO DAILY 07/19/16 [History] Cyanocobalamin (Vitamin B-12) [Vitamin B-12] 1,000 mcg PO DAILY 07/22/16 [ History] Prazosin [Minpress] 1 mg PO BEDTIME 07/22/16 [History] Rizatriptan Benzoate [Maxalt] 10 mg PO ASDIRECTED PRN 07/22/16 [History] Verapamil [Calan SR] 120 mg PO DAILY 07/22/16 [History] lamoTRIgine [Lamictal] 150 mg PO DAILY 07/22/16 [History] Dicyclomine [Bentyl] 10 mg PO QID 07/24/16 [History] Zolpidem Tartrate [Ambien] 10 mg PO BEDTIME 07/24/16 [History] Ondansetron [Zofran ODT] 4 mg PO Q4H PRN #30 tab.dis 07/28/16 [Rx] FLUoxetine [PROzac] 40 mg PO DAILY 08/02/16 [History] Fluticasone/Vilanterol [Breo Ellipta 200-25 Mcg INH] 1 each IH DAILY 09/06/16 [ History] Celecoxib [CeleBREX] 200 mg PO DAILY #14 cap 02/20/17 [Rx] Past Medical History HEENT History: Reports: Impaired Vision Other HEENT History: wears glasses Cardiovascular History: Reports: High Cholesterol Respiratory History: Reports: Asthma, Bronchitis, Recurrent, Sleep Apnea Gastrointestinal History: Reports: Chronic Constipation, Chronic Diarrhea, Colon Polyp, GERD, GI Bleed, Irritable Bowel Syndrome, Other (See Below) Other Gastrointestinal History: colitis, fatty liver Genitourinary History: Reports: UTI, Recurrent 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 hardware removed left foot Neurological History: Reports: Migraines Psychiatric History: Reports: ADHD, Anxiety, Bipolar, Depression, Psych Hospitalization(s), PTSD, Suicide Attempt Other Psychiatric History: suicide attempt Endocrine/Metabolic History: Reports: Hypothyroidism, Obesity/BMI 30+, Vitamin D Deficiency Hematologic History: Reports: B12 Deficiency Immunologic History: Reports: None Oncologic (Cancer) History: Reports: None Dermatologic History: Reports: None - Infectious Disease History Infectious Disease History: Reports: Chicken Pox - Past Surgical History Respiratory Surgical History: Reports: None GI Surgical History: Reports: Bariatric Procedure, Cholecystectomy, Colonoscopy , EGD, Polypectomy Female Surgical History: Reports: Section, Hysterectomy, Salpingo- Oophorectomy Neurological Surgical History: Reports: Lumbar Spine, Other (See Below) Other Neurological Surgeries/Procedures: 6 screws and cage in back Musculoskeletal Surgical History: Reports: Arthroscopic Knee Dermatological Surgical History: Reports: None Social & Family History - Family History Family Medical History: Noncontributory - Tobacco Use Smoking Status *Q: Never Smoker Years of Tobacco use: 1 Packs/Tins Daily: 1 Used Tobacco, but Quit: Yes Month Tobacco Last Used: May Second Hand Smoke Exposure: Yes - Caffeine Use Caffeine Use: Reports: None - Alcohol Use Days Per Week of Alcohol Use: 0 - Recreational Drug Use Recreational Drug Use: No Drug Use in Last 12 Months: No Recreational Drug Type: Reports: Marijuana/Hashish - Living Situation & Occupation Living situation: Reports: , Single Occupation: Disabled ED ROS GENERAL - Review of Systems Review Of Systems: See Below Constitutional: Denies: Fever, Chills HEENT: Reports: No Symptoms Respiratory: Reports: No Symptoms Cardiovascular: Reports: No Symptoms GI/Abdominal: Reports: Diarrhea : Reports: No Symptoms Musculoskeletal: Reports: Back Pain Skin: Reports: No Symptoms Neurological: Reports: Numbness ED EXAM,LOWER BACK PAIN/INJURY - Physical Exam Exam: See Below Exam Limited By: No Limitations General Appearance: Alert, WD/WN, No Apparent Distress Respiratory/Chest: No Respiratory Distress Back Exam: Normal Inspection, Full Range of Motion, Muscle Spasm, Paraspinal Tenderness. No: CVA Tenderness (R), CVA Tenderness (L), Decreased Range of Motion, Vertebral Tenderness Extremities: Normal Inspection, Normal Range of Motion, Non-Tender, No Pedal Edema Neurological: Normal Gait. No: Straight Leg Raise (L), Straight Leg Raise (R), Saddle Anesthesia DTR - Lower Extremities: 2+: Knee (R), Knee (L) Course - Vital Signs Last Recorded V/S: Last Vital Signs Temp 96.8 F 05/16/17 13:15 Pulse 110 H 05/16/17 13:15 Resp 16 05/16/17 13:15 BP 117/71 05/16/17 13:15 Pulse Ox 96 05/16/17 13:15 - Orders/Labs/Meds Meds: Medications Discontinued Medications Generic Name Dose Route Start Last Admin Trade Name Freq PRN Reason Stop Dose Admin Cyclobenzaprine HCl 10 mg 05/16/17 13:37 05/16/17 13:56 Flexeril PO 05/16/17 13:38 10 mg ONETIME ONE Administration Hydromorphone HCl 1 mg 05/16/17 13:37 05/16/17 13:57 Dilaudid IM 05/16/17 13:38 1 mg ONETIME ONE Administration Departure - Departure Time of Disposition: 14:24 Disposition: Home, Self-Care 01 Condition: Good Clinical Impression: Low back pain Qualifiers: Chronicity: acute Back pain laterality: bilateral Sciatica presence: without sciatica Qualified Code(s): M54.5 - Low back pain - Discharge Information Referrals: Christian Akbar PA-C [Primary Care Provider] - Forms: ED Department Discharge Additional Instructions: Use Flexeril as needed to help with muscle spasms, use Tylenol for main pain control, Please followup with your primary care provider in 3-5 days if not better, please call return to the emergency department with worsening of symptoms. - Assessment/Plan Plan: Assessment Acuity = acute Site and laterality = low back pain Etiology = secondary to lifting injury Manifestations = none Location of injury = Home Lab values = none Plan She had good improvement combination Dilaudid and Flexeril, she is sent home Flexeril 10 mg by mouth 3 times a day when necessary have her follow-up with primary 3-5 days if no improvement Patient was in agreement with the plan all questions were answered, they were instructed to return to the emergency department or call for worsening symptoms. This note was dictated using [employer] voice recognition software please call with any questions.
== END 2017-05-16 14:32 | disposition home or self-care (01) ==
LOC: JP.ED 13:01
DX: M54.5 Low back pain (principal); E78.00 Pure hypercholesterolemia, unspecified; G47.30 Sleep apnea, unspecified; J45.909 Unspecified asthma, uncomplicated; F32.9 Major depressive disorder, single episode, unspecified; E03.9 Hypothyroidism, unspecified; E66.9 Obesity, unspecified; K21.9 Gastro-esophageal reflux disease without esophagitis; Z90.49 Acquired absence of other specified parts of digestive tract; Z90.710 Acquired absence of both cervix and uterus; Z98.84 Bariatric surgery status; Z98.890 Other specified postprocedural states; Z87.891 Personal history of nicotine dependence; Z79.899 Other long term (current) drug therapy; Z88.0 Allergy status to penicillin; Z88.8 Allergy status to other drugs, medicaments and biological substances; Z91.040 Latex allergy status; Z68.32 Body mass index [BMI] 32.0-32.9, adult; X50.9XXA Other and unspecified overexertion or strenuous movements or postures, initial encounter
CPT/HCPCS: 96372; 99283; A9270; J1170

== ENCOUNTER 2017-05-31 10:22 | Emergency (ER) | payer MEDICAID ==
[2017-05-31 12:11] VITALS: BP 121/75
--- NOTE | 2017-05-31 12:57 | EDM.PDOC ---
ED HPI GENERAL MEDICAL PROBLEM - General Chief Complaint: Back Pain or Injury Stated Complaint: BACK PAIN Time Seen by Provider: 05/31/17 12:35 Source of Information: Reports: Patient History Limitations: Reports: No Limitations - History of Present Illness INITIAL COMMENTS - FREE TEXT/NARRATIVE: Brenna presents to the ER today with complaints of flare of low back pain after moving furniture around in her apartment last night. She reports she has surgery scheduled on 06/16/[address] Micah Silva. She has tried use of flexeril and methocarbemol without positive results. Lower Back Pain Score (Numeric/FACES): 9 - Related Data Allergies Allergy/AdvReac Type Severity Reaction Status Date / Time bupropion [From Wellbutrin] Allergy Other Verified 04/17/17 12:52 latex Allergy Rash Verified 04/17/17 12:52 pantoprazole sodium Allergy Rash Verified 04/17/17 12:52 [From Protonix] Penicillins Allergy Rash Verified 04/17/17 12:52 fentanyl AdvReac Delusions Verified 04/17/17 12:52 promethazine HCl AdvReac Delusions Verified 04/17/17 12:52 [From Phenergan] Home Meds: Home Meds Doxepin [SINEquan] 75 mg PO BEDTIME 11/30/15 [History] QUEtiapine Fumarate [Quetiapine Fumarate] 300 mg PO BEDTIME 12/17/15 [History] Albuterol Sulfate [Proair Hfa] 2 puff IH Q6H PRN 03/20/16 [History] Omeprazole 40 mg PO ACBREAKFAST 03/20/16 [History] OLANZapine [Olanzapine] 5 mg PO BID 04/23/16 [History] Levothyroxine 0.175 mcg PO DAILY 07/19/16 [History] Cyanocobalamin (Vitamin B-12) [Vitamin B-12] 1,000 mcg PO DAILY 07/22/16 [ History] Prazosin [Minpress] 1 mg PO BEDTIME 07/22/16 [History] Rizatriptan Benzoate [Maxalt] 10 mg PO ASDIRECTED PRN 07/22/16 [History] lamoTRIgine [Lamictal] 150 mg PO DAILY 07/22/16 [History] Dicyclomine [Bentyl] 10 mg PO QID 07/24/16 [History] Zolpidem Tartrate [Ambien] 10 mg PO BEDTIME 07/24/16 [History] Ondansetron [Zofran ODT] 4 mg PO Q4H PRN #30 tab.dis 07/28/16 [Rx] FLUoxetine [PROzac] 40 mg PO DAILY 08/02/16 [History] Fluticasone/Vilanterol [Breo Ellipta 200-25 Mcg INH] 1 each IH DAILY 09/06/16 [ History] Celecoxib [CeleBREX] 200 mg PO DAILY #14 cap 02/20/17 [Rx] DULoxetine [Cymbalta] 1 tab PO DAILY 05/28/17 [History] Cyclobenzaprine [Flexeril] 10 mg PO QID PRN 05/31/17 [History] Past Medical History HEENT History: Reports: Impaired Vision Other HEENT History: wears glasses Cardiovascular History: Reports: High Cholesterol Respiratory History: Reports: Asthma, Bronchitis, Recurrent, Sleep Apnea Gastrointestinal History: Reports: Chronic Constipation, Chronic Diarrhea, Colon Polyp, GERD, GI Bleed, Irritable Bowel Syndrome, Other (See Below) Other Gastrointestinal History: colitis, fatty liver Genitourinary History: Reports: UTI, Recurrent 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 hardware removed left foot Neurological History: Reports: Migraines Psychiatric History: Reports: ADHD, Anxiety, Bipolar, Depression, Psych Hospitalization(s), Psychosis, PTSD, Suicide Attempt Other Psychiatric History: suicide attempt Endocrine/Metabolic History: Reports: Hypothyroidism, Obesity/BMI 30+, Vitamin D Deficiency Hematologic History: Reports: B12 Deficiency Immunologic History: Reports: None Oncologic (Cancer) History: Reports: None Dermatologic History: Reports: None - Infectious Disease History Infectious Disease History: Reports: Chicken Pox - Past Surgical History Respiratory Surgical History: Reports: None GI Surgical History: Reports: Bariatric Procedure, Cholecystectomy, Colonoscopy , EGD, Polypectomy Female Surgical History: Reports: Section, Hysterectomy, Salpingo- Oophorectomy Neurological Surgical History: Reports: Lumbar Spine, Other (See Below) Other Neurological Surgeries/Procedures: 6 screws and cage in back Musculoskeletal Surgical History: Reports: Arthroscopic Knee Dermatological Surgical History: Reports: None Social & Family History - Family History Family Medical History: Noncontributory - Tobacco Use Smoking Status *Q: Former Smoker Years of Tobacco use: 1 Packs/Tins Daily: 1 Used Tobacco, but Quit: Yes Month Tobacco Last Used: 12 Second Hand Smoke Exposure: Yes - Caffeine Use Caffeine Use: Reports: None - Alcohol Use Days Per Week of Alcohol Use: 0 - Recreational Drug Use Recreational Drug Use: No Drug Use in Last 12 Months: No Recreational Drug Type: Reports: Marijuana/Hashish - Living Situation & Occupation Living situation: Reports: , Single Occupation: Disabled ED ROS GENERAL - Review of Systems Review Of Systems: See Below Constitutional: Denies: Fever, Chills, Weakness HEENT: Reports: No Symptoms Respiratory: Denies: Shortness of Breath, Wheezing, Cough, Sputum Cardiovascular: Denies: Chest Pain, Dyspnea on Exertion, Edema, Lightheadedness , Palpitations, PND, Syncope Endocrine: Reports: No Symptoms GI/Abdominal: Denies: Abdominal Pain, Nausea, Vomiting : Reports: No Symptoms Musculoskeletal: Reports: Back Pain, Muscle Pain. Denies: Muscle Stiffness Skin: Denies: Bruising, Pruritis, Rash, Erythema, Wound Neurological: Denies: Headache, Numbness, Tingling, Difficulty Walking, Weakness , Gait Disturbance Psychiatric: Reports: No Symptoms Hematologic/Lymphatic: Reports: No Symptoms Immunologic: Reports: No Symptoms ED EXAM,LOWER BACK PAIN/INJURY - Physical Exam Exam: See Below Text/Narrative:: Brenna presents today with complaints of acute flare of low back pain. She has been provided use of cyclobenzaprine and methocarbamol for pain recently and states these do not help. She reports use of acetaminophen for pain without much relief. Exam Limited By: No Limitations General Appearance: Alert, WD/WN, Mild Distress Eye Exam: Bilateral Eye: EOMI, PERRL Ears: Normal External Exam, Normal Canal, Hearing Grossly Normal, Normal TMs Throat/Mouth: Normal Inspection, Normal Lips, Normal Oropharynx, Normal Voice, No Airway Compromise Head: Atraumatic, Normocephalic Neck: Normal Inspection, Supple, Non-Tender, Full Range of Motion. No: Lymphadenopathy (R), Lymphadenopathy (L) Respiratory/Chest: No Respiratory Distress, Lungs Clear, Normal Breath Sounds, No Accessory Muscle Use, Chest Non-Tender Cardiovascular: Normal Peripheral Pulses, Regular Rate, Rhythm, No Edema, No Murmur, No Rub GI/Abdominal: Normal Bowel Sounds, Soft, Non-Tender, No Distention, No Mass Back Exam: Normal Inspection, Full Range of Motion, Muscle Spasm, Paraspinal Tenderness, Other (Negative bilateral leg raise. No loss of sensation to genitals or incontinence of urine/stool. ). No: CVA Tenderness (R), CVA Tenderness (L), Vertebral Tenderness Extremities: Normal Inspection, Normal Range of Motion, Non-Tender, No Pedal Edema, Normal Capillary Refill Neurological: Alert, Normal Mood/Affect, Normal Dorsiflexion, CN II-XII Intact, Normal Plantar Flexion, Normal Gait, Normal Reflexes, No Motor/Sensory Deficits , Oriented x 3 DTR - Lower Extremities: 2+: Knee (R), Knee (L) Psychiatric: Normal Affect, Normal Mood Skin Exam: Warm, Dry, Intact, Normal Color, No Rash Lymphatic: No Adenopathy Course - Vital Signs Last Recorded V/S: Last Vital Signs Temp 36.3 C 05/31/17 12:10 Pulse 81 05/31/17 12:10 Resp 16 05/31/17 12:10 BP 121/75 05/31/17 12:10 Pulse Ox 98 05/31/17 12:10 - Re-Assessments/Exams Free Text/Narrative Re-Assessment/Exam: 05/31/17 13:06 Dr. Micah Silva paged to help assist with pain management for patient. 05/31/17 13:06 [place] [employer] reviewed, noted tylenol #3 fill for #24 tabs per DDS on 05/26/2017. Oxycodone last fill on 03/20/17. 05/31/17 13:26 Discussed patient case with Dr. Micah Silva. Brenna will be provided a medrol dose pack and two days fo tramadol for pain. Departure - Departure Time of Disposition: 13:27 Disposition: Home, Self-Care 01 Condition: Fair Clinical Impression: Pseudoarthrosis of lumbar spine, Acute exacerbation of chronic low back pain - Discharge Information Instructions: Back Pain, Adult Referrals: Christian Akbar PA-C [Primary Care Provider] - Forms: ED Department Discharge Additional Instructions: You have been seen in the emergency room today for acute on chronic low back pain. Dr. Micah Silva was contacted about your pain. It is best for you to start a medrol dose pack (steroid) for pain with use of tramadol for severe pain as needed. Follow up with Dr. Silva in 7 to 10 days for further pain management until your procedure on 06/16/2017. Refrain from physical actions/movements that require repetitive movements of your back such as lifting, carrying pushing or pulling heavy objects causing more pain. Return for issues or concerns. - Assessment/Plan Assessment:: Pseudoarthrosis of lumbar spine, Acute exacerbation of chronic low back pain Plan: Dr. Micah Silva was contacted about patients pain. It is best for her to start a medrol dose pack (steroid) for pain with use of tramadol for severe pain as needed. She was provided Tramadol 50mg tabelts, #6. Follow up with Dr. Silva in 7 to 10 days for further pain management until your procedure on 06/16/2017. Refrain from physical actions/movements that require repetitive movements of your back such as lifting, carrying pushing or pulling heavy objects causing more pain. Return for issues or concerns. Patient verbalized understanding.
== END 2017-05-31 13:42 | disposition home or self-care (01) ==
LOC: JP.ED 10:22
DX: S32.009A Unspecified fracture of unspecified lumbar vertebra, initial encounter for closed fracture (principal); Z87.891 Personal history of nicotine dependence; Z79.899 Other long term (current) drug therapy; Z88.0 Allergy status to penicillin; Z91.040 Latex allergy status; Z88.8 Allergy status to other drugs, medicaments and biological substances; X50.9XXA Other and unspecified overexertion or strenuous movements or postures, initial encounter
CPT/HCPCS: 99283

== ENCOUNTER 2017-06-05 09:55 | Inpatient (IN) | payer MEDICAID ==
[2017-06-16] MEDS ORDERED: Gabapentin 300 MG Cap PO ONE (06:00)
[2017-06-16] MEDS ORDERED: Scopolamine 1.5 MG Transdermal Patch TOP SCH (06:00)
[2017-06-16] MEDS ORDERED: Lactated Ringers 1,000 ML IV SCH (06:00)
[2017-06-16] MEDS ORDERED: Clindamycin Phosphate 900 MG in Sodium Chloride 0.9% 100 ML IV ONE (07:30)
[2017-06-16] MEDS ORDERED: VERIFY SCOPOLAMINE PATCH TOP SCH (10:00)
[2017-06-19] MEDS ORDERED: Gelatin Sponge,Absorbable Pwd 1 GM Pkt ONE (08:00)
[2017-06-19] MEDS ORDERED: Thrombin (Bovine) 5,000 Unit Kit ONE (08:20)
[2017-06-19] MEDS ORDERED: Povidone-Iodine 10% Soln 118.25 ML Bottle ONE (08:20)
[2017-06-19] MEDS ORDERED: Gabapentin 300 MG Cap PO ONE (10:58)
[2017-06-19] MEDS ORDERED: Scopolamine 1.5 MG Transdermal Patch TOP SCH (11:00)
[2017-06-19] MEDS ORDERED: Lactated Ringers 1,000 ML IV SCH (11:00)
[2017-06-19] MEDS ORDERED: Dexamethasone 4 MG/ML SDV ONE (13:00)
[2017-06-19] MEDS ORDERED: Succinylcholine 200 MG/10 ML MDV ONE (13:00)
[2017-06-19] MEDS ORDERED: Propofol 200 MG/20 ML SDV ONE ×6 (13:00→19:35)
[2017-06-19] MEDS ORDERED: Ondansetron 4 MG/2 ML SDV ONE (13:00)
[2017-06-19] MEDS ORDERED: Rocuronium 50 MG/5 ML Vial ONE (13:00)
[2017-06-19] MEDS ORDERED: Clindamycin Phosphate 900 MG in Sodium Chloride 0.9% 100 ML IV ONE (14:30)
[2017-06-19] MEDS ORDERED: Ketamine 500 MG/5 ML MDV IV ONE (14:45)
[2017-06-19] MEDS ORDERED: Ropivacaine 49.25 ML, Ketorolac 30 MG, EPINEPHrine 0.5 MG, cloNIDine 80 MCG, Sodium Chl... INJECT ONE ×5 (14:45)
[2017-06-19] MEDS ORDERED: Midazolam 1 MG/ML 2 ML SDV ONE ×2 (16:31→20:13)
[2017-06-19] MEDS ORDERED: Lactated Ringers 1,000 ML ONE (18:30)
[2017-06-19] MEDS ORDERED: Glycopyrrolate 0.2 MG/ML 5 ML MDV ONE (19:44)
[2017-06-19] MEDS ORDERED: Neostigmine Methylsulfate 1 MG/ML 5 ML Syringe ONE (19:44)
[2017-06-19] MEDS ORDERED: Naloxone 0.4 MG/ML SDV IVPUSH PRN (19:53)
[2017-06-19] MEDS ORDERED: Zolpidem 5 MG Tab PO PRN (19:53)
[2017-06-19] MEDS ORDERED: HYDROmorphone 1 MG/ML Syringe IVPUSH PRN (19:53)
[2017-06-19] MEDS ORDERED: Aluminum Hydroxide/Magnesium Hydroxide/Simethicone Susp 30 ML Cup PO PRN (19:53)
[2017-06-19] MEDS ORDERED: Sodium Chloride 0.9% 10 ML Syringe FLUSH PRN (19:53)
[2017-06-19] MEDS ORDERED: Ondansetron 4 MG/2 ML SDV IVPUSH PRN (19:53)
[2017-06-19] MEDS ORDERED: Sennosides 8.6 MG Tab PO PRN (19:53)
[2017-06-19] MEDS ORDERED: Magnesium Hydroxide 400 MG/5 ML Susp 30 ML Cup PO PRN (19:53)
[2017-06-19] MEDS ORDERED: Rizatriptan 10 MG Tab.DIS PO PRN (19:57)
[2017-06-19] MEDS ORDERED: Albuterol 8 GM Inhaler INH PRN (19:57)
[2017-06-19] MEDS ORDERED: fentaNYL 100 MCG/2 ML SDV ONE (20:13)
[2017-06-19] MEDS: Tranexamic Acid 970 MG in Sodium Chloride 0.9% 50 ML IV SCH ×3 (20:25→20:45)
[2017-06-19] MEDS: Acetaminophen 1,000 MG in Premix Bag 1 BAG IV SCH (21:43)
[2017-06-19] MEDS ORDERED: QUEtiapine 100 MG Tab ONE (21:43)
[2017-06-19] MEDS: Ketorolac 60 MG/2 ML SDV IVPUSH SCH (21:45)
[2017-06-19] MEDS: Prazosin 1 MG Cap PO SCH (21:53)
[2017-06-19] MEDS: OLANZapine 5 MG Tab PO SCH (21:54)
[2017-06-19] MEDS: Doxepin 25 MG Cap PO SCH (21:54)
[2017-06-19] MEDS: Dicyclomine 10 MG Cap PO SCH (21:54)
[2017-06-19] MEDS: oxyCODONE 5 MG Tab PO PRN (22:56)
--- NOTE | 2017-06-20 01:47 | OR ---
DATE OF PROCEDURE: 06/19/2017 PREOPERATIVE DIAGNOSES: 1. Pseudoarthrosis, L4-L5. 2. Discogenic back pain, L4-L5. 3. Previous lumbar fusion, L4-L5 and L5-S1. POSTOPERATIVE DIAGNOSES: 1. Pseudoarthrosis, L4-L5. 2. Discogenic back pain, L4-L5. 3. Previous lumbar fusion, L4-L5 and L5-S1. PROCEDURE: 1. Revision transforaminal lumbar interbody fusion with posterolateral grafting at L4-L5 and L5-S1. 2. Interbody device placement at L4-L5. 3. Segmental instrumentation at L4-L5 and L5-S1. 4. Total facetectomy, right L4-L5. 5. Autograft used for procedure from facetectomy used in posterolateral fusion. 6. Signify allograft used in interbody fusion and posterolateral fusion. 7. Use of intraoperative fluoroscopy. ANESTHESIA: General endotracheal intubation. FLUIDS: Lactated Ringer solution. ESTIMATED BLOOD LOSS: 350 mL. COMPLICATIONS: None. SPECIMEN: None. DISCHARGE DISPOSITION: Stable to PACU. INSTRUMENTATION: Globus CREO AMP two 40 mm screws x 7.5 mm at S1 and four 50 mm x 7.5 mm screws at L4 and L5 with RISE 15-degree implant at L4-L5. HISTORY AND INDICATIONS FOR THE PROCEDURE: The patient had a previous fusion in 2006 in [facility]. She did very well until the last 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 Risks and benefits of the procedure were explained to the patient, informed consent was obtained. DETAILS OF PROCEDURE: The patient was seen preoperatively by myself and anesthesia staff in the preop holding area where the operative site was marked. She was brought to the operative suite by Anesthesia staff where general anesthesia was administered. Sterile Gilbert catheter was placed. The operative fluoroscopy unit was then draped in a sterile manner. Neuromonitoring leads were placed and normal at baseline and normal throughout the case. The patient was then flipped into a prone position on a Mychal table. All extremities found to be well padded. The bed was flexed. The patient was then prepped and draped in a sterile manner. Time-out was called identifying the correct patient, the correct procedure, the correct site, and antibiotics had begun within appropriate period of time. A midline incision was made over the previous incision and carried down to deep fascia. Bleeding was controlled during the case with Bovie electrocautery, bipolar electrocautery, and an Aquamantys 5.0 unit. I then used Bovie electrocautery and a Sharp to go over the spinous processes of L4 and S1, then over to the respective facets, and then I was able to go lateral to the midline and then over to the level of the screws bilaterally. I went down to the level of the transverse processes at L4, L5, and S1 at the sacral ala. I then inserted Versa-Trac retractor blades for retraction. I then removed the previous Medtronic instrumentation and replaced this with Globus CREO screws. After this had been accomplished, I performed a total facetectomy on the right at L4-L5, which took a great deal of time in order to avoid getting into the dural structures. I did not encounter the dura as I was able to stay lateral at all times, and then under direct visualization, I was able to visualize the disk space as well as confirmed this on fluoroscopy at L4-L5. I then used a #15 blade to incise the disk space and then used sequential slava from 7 to 10 and then straight and upgoing and downgoing curettes as well as straight and upgoing pituitaries to remove the disk and prepare for interbody space preparation. I then inserted my implant and confirmed good placement on fluoroscopy. I then expanded this as much as possible. Please note that I also placed a bone tamp anteriorly and placed Signify allograft anterior to the interbody implant. I then copiously irrigated with 3 L of Betadine infused irrigation. I placed the tulips on the right on the wai, set screws, and then torqued them to specifications. I then grafted the transverse process and facets on the right at L4-L5 and then placed more graft with autograft obtained from the facetectomy. I then placed the 75 mm rods, set screws, and then torqued them to specifications. I then inserted some FloSeal as well as Gelfoam powder and then closed with #1 STRATAFIX, then #2 STRATAFIX, then 3-0 STRATAFIX followed by sterile dressing. The patient's neuro monitoring leads were normal throughout the case. I also tested the screws with a minimum of 15 and confirmed good screw placement on final films on fluoroscopy. The patient was then flipped onto the hospital bed and taken to the PACU in stable condition. Frederick Silva DO /[id number]
[2017-06-20] MEDS: Acetaminophen 1,000 MG in Premix Bag 1 BAG IV SCH ×3 (01:56→14:16)
[2017-06-20] MEDS: hydrOXYzine HCl 25 MG Tab PO PRN ×3 (02:07→19:34)
[2017-06-20] MEDS: oxyCODONE 5 MG Tab PO PRN ×4 (03:06→20:53)
[2017-06-20] MEDS: Ketorolac 60 MG/2 ML SDV IVPUSH SCH (03:46)
[2017-06-20] MEDS: traMADol 50 MG Tab PO PRN ×3 (05:40→17:27)
[2017-06-20] MEDS: Dicyclomine 10 MG Cap PO SCH ×4 (06:20→21:00)
[2017-06-20] MEDS ORDERED: Non-Formulary Medication 1 Each (Fluticasone/Vilanterol [Breo Ellipta 200-25 Mcg Inh] 1 EA IH SCH (09:00)
[2017-06-20] MEDS ORDERED: Levothyroxine 75 MCG Tab PO SCH (09:00)
[2017-06-20] MEDS ORDERED: LEVOTHYROXINE PO SCH (09:00)
[2017-06-20] MEDS ORDERED: Levothyroxine 100 MCG Tab PO SCH (09:00)
[2017-06-20] MEDS ORDERED: lamoTRIgine 100 MG Tab PO SCH (09:00)
--- NOTE | 2017-06-20 09:02 | PCM.PN ---
- General Info Date of Service: 06/20/17 Functional Status: Reports: Pain Controlled - Review of Systems General: Reports: No Symptoms HEENT: Reports: No Symptoms Pulmonary: Reports: No Symptoms Cardiovascular: Reports: No Symptoms Gastrointestinal: Reports: No Symptoms Genitourinary: Reports: No Symptoms Musculoskeletal: Reports: Back Pain Skin: Reports: No Symptoms Neurological: Reports: Numbness, Paresthesia, Difficulty Walking, Gait Disturbance Psychiatric: Reports: No Symptoms - Patient Data Vitals - Most Recent: Last Vital Signs Temp 96.2 F 06/20/17 07:00 Pulse 99 06/20/17 07:00 Resp 18 06/20/17 07:00 BP 95/61 06/20/17 07:00 Pulse Ox 99 06/20/17 07:26 Weight - Most Recent: 209 lb I&O - Last 24 Hours: Intake & Output 06/19/17 06/20/17 06/20/17 22:59 06:59 14:59 Intake Total 3350 Output Total 1250 Balance 2100 Lab Results Last 24 Hours: Laboratory Results - last 24 hr 06/19/17 06/20/17 06/20/17 Range/Units 10:57 05:21 05:21 WBC 10.2 (4.5-11.0) K/uL RBC 3.96 (3.30-5.50) M/uL Hgb 12.7 D (12.0-15.0) g/dL Hct 38.4 (36.0-48.0) % MCV 97 (80-98) fL MCH 32 H (27-31) pg MCHC 33 (32-36) % Plt Count 242 (150-400) K/uL Neut % (Auto) 84 H (36-66) % Lymph % (Auto) 8 L (24-44) % [place] % (Auto) 7 H (2-6) % Eos % (Auto) 0 L (2-4) % Baso % (Auto) 0 (0-1) % Sodium 137 L (140-148) mmol/L Potassium 4.0 (3.6-5.2) mmol/L Chloride 103 (100-108) mmol/L Carbon Dioxide 23 (21-32) mmol/L Anion Gap 15.0 H (5.0-14.0) mmol/L BUN 9 (7-18) mg/dL Creatinine 0.8 (0.6-1.0) mg/dL Est Cr Clr Drug Dosing 99.01 mL/min Estimated GFR (MDRD) > 60 (>60) Glucose 126 H (74-106) mg/dL Calcium 8.9 (8.5-10.1) mg/dL Blood Type A POSITIVE Gel Antibody Screen Negative Med Orders - Current: Current Medications Al Hydroxide/Mg Hydroxide (Mag-Al Plus) 30 ml PO Q4H PRN PRN Reason: Indigestion Albuterol (Ventolin Hfa) 0 gm INH Q6H PRN PRN Reason: Shortness of Breath Cyanocobalamin (Vitamin B12) 1,000 mcg PO DAILY [facility] Diazepam (Valium) 5 mg IVPUSH Q6H PRN PRN Reason: Spasms Last Admin: 06/20/17 05:14 Dose: 5 mg Dicyclomine HCl (Bentyl) 10 mg PO QID [facility] Last Admin: 06/20/17 06:20 Dose: 10 mg Doxepin HCl (Sinequan) 75 mg PO BEDTIME [facility] Last Admin: 06/19/17 21:54 Dose: 75 mg Duloxetine HCl (Cymbalta) 60 mg PO DAILY [facility] Hydromorphone HCl (Dilaudid) 1 mg IVPUSH Q2H PRN PRN Reason: Pain Hydroxyzine HCl (Atarax) 100 mg PO QID PRN PRN Reason: Pain Last Admin: 06/20/17 02:07 Dose: 100 mg Lactated Ringer's (Ringers, Lactated) 1,000 mls @ 0 mls/hr IV ASDIRECTED [facility] PRN Reason: KVO Last Admin: 06/19/17 11:05 Dose: 50 mls/hr Acetaminophen 1,000 mg/ Premix 100 mls @ 400 mls/hr IV Q6H [facility] Stop: 06/20/17 14:14 Last Admin: 06/20/17 01:56 Dose: 400 mls/hr Clindamycin Phosphate 600 mg/ (Sodium Chloride) 54 mls @ 108 mls/hr IV Q8H [facility] Lamotrigine 100 mg/ (Lamotrigine 50 mg) 150 mg PO DAILY [facility] Levothyroxine Sodium 100 mcg/ (Levothyroxine Sodium 75 mcg) 175 mcg PO ACBREAKFAST [facility] Magnesium Hydroxide (Milk Of Magnesia) 30 ml PO BID PRN PRN Reason: Constipation Naloxone HCl (Narcan) 0.2 mg IVPUSH ONETIME PRN PRN Reason: Oversedation Non-Formulary Medication (Fluticasone/Vilanterol [Breo Ellipta 200-25 Mcg Inh]) 1 each IH DAILY [facility] Olanzapine (Zyprexa) 5 mg PO BID [facility] Last Admin: 06/19/17 21:54 Dose: 5 mg Ondansetron HCl (Zofran) 8 mg IVPUSH Q4H PRN PRN Reason: Nausea/Vomiting Oxycodone HCl (Oxycodone) 5 - 10 mg PO Q6H PRN PRN Reason: Pain Last Admin: 06/20/17 08:10 Dose: 10 mg Prazosin HCl (Minpress) 1 mg PO BEDTIME [facility] Last Admin: 06/19/17 21:53 Dose: 1 mg Quetiapine Fumarate (Seroquel) 300 mg PO BEDTIME [facility] Quetiapine Fumarate (Seroquel) 300 mg PO BEDTIME ONE Stop: 06/20/17 21:01 Last Admin: 06/19/17 22:24 Dose: 300 mg Rizatriptan Benzoate (Maxalt [place]) 10 mg PO ASDIRECTED PRN PRN Reason: Headache Scopolamine (Transderm-Scop) 1.5 mg TOP Q72H [facility] Stop: 06/22/17 04:00 Last Admin: 06/19/17 11:22 Dose: 1.5 mg Senna (Senna) 8.6 mg PO BID PRN PRN Reason: Constipation Sodium Chloride (Saline Flush) 10 ml FLUSH ASDIRECTED PRN PRN Reason: Keep Vein Open Tramadol HCl (Ultram) 100 mg PO Q6H PRN PRN Reason: Pain Last Admin: 06/20/17 05:40 Dose: 100 mg Zolpidem Tartrate (Ambien) 5 mg PO BEDTIME PRN PRN Reason: Sleep Discontinued Medications Ropivacaine 49.25 ml/Ketorolac Tromethamine 30 mg/Epinephrine HCl 0.5 mg/ Clonidine HCl 80 mcg/ Sodium Chloride 48.45 ml 0 ml INJECT ONETIME ONE Stop: 06/19/17 14:46 Last Admin: 06/19/17 17:22 Dose: 100 ml Dexamethasone (Dexamethasone) Confirm Administered Dose 4 mg .ROUTE .STK-MED ONE Stop: 06/19/17 13:01 Fentanyl (Sublimaze) Confirm Administered Dose 100 mcg .ROUTE .STK-MED ONE Stop: 06/19/17 20:14 Fentanyl Citrate (Fentanyl) Confirm Administered Dose 500 mcg .ROUTE .STK-MED ONE Stop: 06/19/17 13:00 Gabapentin (Neurontin) 300 mg PO ONETIME ONE Stop: 06/19/17 10:59 Last Admin: 06/19/17 11:22 Dose: 300 mg Glycopyrrolate (Robinul) Confirm Administered Dose 1 mg .ROUTE .STK-MED ONE Stop: 06/19/17 19:45 Tranexamic Acid 970 mg/ Sodium (Chloride) 59.7 mls @ 238.8 mls/hr IV Q3H [facility] Stop: 06/19/17 17:59 Last Admin: 06/19/17 20:25 Dose: 238 mls/hr Ketamine HCl 100 mg/ Sodium (Chloride) 100 mls @ 19 mls/hr IV ASDIRECTED [facility] Stop: 06/19/17 16:45 Clindamycin Phosphate 900 mg/ (Sodium Chloride) 106 mls @ 200 mls/hr IV ONETIME ONE Stop: 06/19/17 15:01 Last Admin: 06/19/17 16:20 Dose: 200 mls/hr Lactated Ringer's (Ringers, Lactated) Confirm Administered Dose 1,000 mls @ as directed .ROUTE .STK-MED ONE Stop: 06/19/17 18:31 Clindamycin Phosphate 600 mg/ (Sodium Chloride) 54 mls @ 100 mls/hr IV Q8H [facility] Stop: 06/20/17 16:34 Last Admin: 06/20/17 00:35 Dose: 100 mls/hr Ketamine HCl (Ketalar) 32 mg IV ONETIME ONE Stop: 06/19/17 14:46 Ketorolac Tromethamine (Toradol) 30 mg IVPUSH Q8H [facility] Stop: 06/20/17 04:01 Last Admin: 06/20/17 03:46 Dose: 30 mg Midazolam HCl (Versed 1 Mg/Ml) Confirm Administered Dose 2 mg .ROUTE .STK-MED ONE Stop: 06/19/17 16:32 Midazolam HCl (Versed 1 Mg/Ml) Confirm Administered Dose 2 mg .ROUTE .STK-MED ONE Stop: 06/19/17 20:14 Neostigmine Methylsulfate (Neostigmine) Confirm Administered Dose 5 mg .ROUTE .STK-MED ONE Stop: 06/19/17 19:45 Non-Formulary Medication (Fluticasone/Vilanterol [Breo Ellipta 200-25 Mcg Inh]) 1 each IH DAILY [facility] Non-Formulary Medication (Levothyroxine [Levothyroxine]) 0.175 mcg PO DAILY [facility] Ondansetron HCl (Zofran) Confirm Administered Dose 4 mg .ROUTE .STK-MED ONE Stop: 06/19/17 13:01 Oxycodone HCl (Oxycodone) 5 mg PO Q4H PRN PRN Reason: Pain Last Admin: 06/20/17 03:06 Dose: 5 mg Povidone Iodine (Betadine 10% Soln) Confirm Administered Dose 1 ml .ROUTE .STK- MED ONE Stop: 06/19/17 08:21 Last Admin: 06/19/17 17:15 Dose: 40 ml Propofol (Diprivan 20 Ml) Confirm Administered Dose 200 mg .ROUTE .STK-MED ONE Stop: 06/19/17 13:01 Propofol (Diprivan 20 Ml) Confirm Administered Dose 400 mg .ROUTE .STK-MED ONE Stop: 06/19/17 16:44 Propofol (Diprivan 20 Ml) Confirm Administered Dose 400 mg .ROUTE .STK-MED ONE Stop: 06/19/17 17:22 Propofol (Diprivan 20 Ml) Confirm Administered Dose 200 mg .ROUTE .STK-MED ONE Stop: 06/19/17 17:24 Propofol (Diprivan 20 Ml) Confirm Administered Dose 200 mg .ROUTE .STK-MED ONE Stop: 06/19/17 18:08 Propofol (Diprivan 20 Ml) Confirm Administered Dose 200 mg .ROUTE .STK-MED ONE Stop: 06/19/17 19:36 Quetiapine Fumarate (Seroquel) 300 mg PO BEDTIME [facility] Quetiapine Fumarate (Seroquel) Confirm Administered Dose 300 mg .ROUTE .STK-MED ONE Stop: 06/19/17 21:44 Last Admin: 06/19/17 22:57 Dose: Not Given Rocuronium [place] (Zemuron) Confirm Administered Dose 50 mg .ROUTE .STK-MED ONE Stop: 06/19/17 13:01 Succinylcholine Chloride (Quelicin) Confirm Administered Dose 200 mg .ROUTE .STK -MED ONE Stop: 06/19/17 13:01 Thrombin (Thrombin-Jmi) Confirm Administered Dose 15,000 unit .ROUTE .STK-MED ONE Stop: 06/19/17 08:21 Last Admin: 06/19/17 17:16 Dose: 10,000 unit - Exam General: Alert, Oriented HEENT: Pupils Equal, Pupils Reactive, Mucous Membr. Moist/[place] Neck: Supple Lungs: Normal Respiratory Effort Back Exam: Paraspinal Tenderness Extremities: Normal Inspection, Normal Range of Motion, Non-Tender, No Pedal Edema, Normal Capillary Refill, Other Skin: Warm, Dry, Intact Wound/Incisions: Healing Well (rle numbess distal to knee. full motor function) , Drainage Neurological: No New Focal Deficit Psy/Mental Status: Alert, Normal Affect, Normal Mood - Problem List & Annotations (1) Acute exacerbation of chronic low back pain SNOMED Code(s): 034587096 Code(s): M54.5 - LOW BACK PAIN; G89.29 - OTHER CHRONIC PAIN Status: Acute Current Visit: No (2) Pseudoarthrosis of lumbar spine SNOMED Code(s): 172225027 Code(s): S32.009K - UNSP FRACTURE OF UNSP LUM VERTEBRA, SUBS FOR FX W NONUNION Status: Chronic Current Visit: No - Problem List Review Problem List Initiated/Reviewed/Updated: Yes - My Orders Last 24 Hours: My Active Orders 06/19/17 10:57 SCD [Sequential Compression Device] [OM.PC] Routine 06/19/17 11:00 Lactated Ringers [Ringers, Lactated] 1,000 ml IV ASDIRECTED Scopolamine [Transderm-Scop] 1.5 mg TOP Q72H 06/19/17 17:21 Fluoro Over 1Hr wo Rad [CR] Routine 06/19/17 19:53 Ambulate [RC] QID Bedrest Bathroom Privileges [RC] ASDIRECTED Cardiac Monitoring [RC] .As Directed Cervical Spine Precautions [RC] ASDIRECTED Head of Bed Elevation [RC] ASDIRECTED Immobilizer [RC] ASDIRECTED Intake and Output [RC] QSHIFT Neurovascular Check [RC] BID Notify Provider Intake and Out [RC] ASDIRECTED Oxygen Therapy [RC] PRN Pulse Oximetry [RC] CONTINUOUS RT BiPAP/CPAP [RC] ASDIRECTED RT Incentive Spirometry [RC] ASDIRECTED Turn, Cough, Deep Breathe [RC] .PRN Up to Chair [RC] QID Vital Signs [RC] PER UNIT ROUTINE Wound Care [RC] Q12H OT Evaluation and Treatment [CONS] Routine PT Evaluation and Treatment [CONS] Routine Alum Hydrox/Mag Hydrox/Simeth [Mag-Al Plus] 30 ml PO Q4H PRN Diazepam [Valium] 5 mg IVPUSH Q6H PRN HYDROmorphone [Dilaudid] 1 mg IVPUSH Q2H PRN Magnesium Hydroxide [Milk of Magnesia] 30 ml PO BID PRN Naloxone [Narcan] 0.2 mg IVPUSH ONETIME PRN Ondansetron [Zofran] 8 mg IVPUSH Q4H PRN Sennosides [Senna] 8.6 mg PO BID PRN Sodium Chloride 0.9% [Saline Flush] 10 ml FLUSH ASDIRECTED PRN Zolpidem [Ambien] 5 mg PO BEDTIME PRN Encourage Fluids [OM.PC] Routine Saline Lock Insert [OM.PC] Routine Sequential Compression Device [OM.PC] Routine 06/19/17 19:57 Albuterol [Ventolin HFA] 0 gm INH Q6H PRN Rizatriptan [Maxalt [employer]CTION [employer]] 10 mg PO ASDIRECTED PRN 06/19/17 20:00 Admission Status [Patient Status] [ADT] Routine Acetaminophen [Ofirmev] 1,000 mg Premix Bag 1 bag IV Q6H 06/19/17 21:00 Doxepin [SINEquan] 75 mg PO BEDTIME OLANZapine [ZyPREXA] 5 mg PO BID Prazosin [Minpress] 1 mg PO BEDTIME 06/19/17 22:00 Dicyclomine [Bentyl] 10 mg PO QID 06/19/17 22:56 hydrOXYzine HCl [Atarax] 100 mg PO QID PRN 06/19/17 Dinner Advance Diet Instructions [DIET] 06/20/17 04:59 traMADol [Ultram] 100 mg PO Q6H PRN 06/20/17 05:00 oxyCODONE 5 - 10 mg PO Q6H PRN 06/20/17 08:00 Urinary Catheter Removal [RC] Per Unit Routine 06/20/17 09:00 Clindamycin Phosphate [Cleocin] 600 mg Sodium Chloride 0.9% [Normal Saline] 50 ml IV Q8H Cyanocobalamin (Vitamin B12) [Vitamin B12] 1,000 mcg PO DAILY DULoxetine [Cymbalta] 60 mg PO DAILY Fluticasone/Vilanterol [Breo Ellipta 200-25 Mcg Inh] 1 each IH DAILY Lamotrigine 150 mg PO DAILY Levothyroxine [Synthroid] 175 mcg PO ACBREAKFAST 06/20/17 21:00 QUEtiapine [SEROquel] 300 mg PO BEDTIME QUEtiapine [SEROquel] 300 mg PO BEDTIME ONE 06/21/17 05:15 BASIC METABOLIC PANEL,BMP [CHEM] DAILY CBC WITH AUTO DIFF [HEME] DAILY 06/22/17 05:15 BASIC METABOLIC PANEL,BMP [CHEM] DAILY CBC WITH AUTO DIFF [HEME] DAILY 06/23/17 05:15 BASIC METABOLIC PANEL,BMP [CHEM] DAILY CBC WITH AUTO DIFF [HEME] DAILY - Plan Plan:: assessment: Postoperative day 1 revision posterior lumbar fusion L4-S1. Plan: I've advised the patient that the numbness will most likely resolve. We' ll start her on Decadron 10 mg every 6 hours IV 4 doses. I would like to continue to work with physical therapy. She is to wear her brace when out of bed. Pain is controlled. We'll continue physical therapy, occupational therapy, and pain control.
[2017-06-20] MEDS: DULoxetine 30 MG Cap PO SCH (10:54)
[2017-06-20] MEDS: lamoTRIgine 100 MG, lamoTRIgine 50 MG PO SCH ×2 (10:56)
[2017-06-20] MEDS: Cyanocobalamin (Vitamin B12) 1,000 MCG Tab PO SCH (10:57)
[2017-06-20] MEDS: OLANZapine 5 MG Tab PO SCH ×2 (10:57→20:57)
[2017-06-20] MEDS: Formoterol/Mometasone 200-5 MCG 8.8 GM Inhaler IH SCH ×2 (11:09→20:54)
[2017-06-20] MEDS: Diazepam 5 MG Tab PO PRN ×2 (11:25→17:28)
[2017-06-20] MEDS: Dexamethasone 4 MG/ML SDV IVPUSH SCH ×2 (12:59→17:32)
[2017-06-20] MEDS: Prazosin 1 MG Cap PO SCH (20:56)
[2017-06-20] MEDS: Doxepin 25 MG Cap PO SCH (20:57)
[2017-06-20] MEDS ORDERED: QUEtiapine 100 MG Tab PO ONE (21:00)
[2017-06-21] MEDS: Dexamethasone 4 MG/ML SDV IVPUSH SCH ×3 (00:50→07:10)
[2017-06-21] MEDS: Diazepam 5 MG Tab PO PRN ×2 (00:50→07:40)
[2017-06-21] MEDS: traMADol 50 MG Tab PO PRN ×2 (00:50→06:52)
[2017-06-21] MEDS: oxyCODONE 5 MG Tab PO PRN ×2 (03:24→09:25)
[2017-06-21] MEDS: Dicyclomine 10 MG Cap PO SCH ×2 (06:11→09:21)
[2017-06-21] MEDS: hydrOXYzine HCl 25 MG Tab PO PRN (06:52)
[2017-06-21] MEDS: Formoterol/Mometasone 200-5 MCG 8.8 GM Inhaler IH SCH (07:31)
[2017-06-21] MEDS: Cyanocobalamin (Vitamin B12) 1,000 MCG Tab PO SCH (09:20)
[2017-06-21] MEDS: lamoTRIgine 100 MG, lamoTRIgine 50 MG PO SCH ×2 (09:20)
[2017-06-21] MEDS: DULoxetine 30 MG Cap PO SCH (09:20)
[2017-06-21] MEDS: OLANZapine 5 MG Tab PO SCH (09:21)
--- NOTE | 2017-06-21 11:09 | PCM.DCSUM1 ---
Discharge Summary - Hospital Course Brief History: the patient was seen previously in the clinic.she had undergone a posterior lumbar interbody fusion at L5-S1 as well as posterior instrumentation at L4-5. This was in 2006 in [place]. She did well until approximately 18 months ago when she started to have increased back pain. She has gone through a gastric bypass in an effort to decrease the back pain. She had failed nonoperative treatment. Preoperative imaging confirmed a pseudoarthrosis at L4-5 with increased motion on plain films. She was consented for the revision transforaminal lumbar interbody fusion at L4-5 with revision instrumentation down to L5-S1. She was admitted on service date 06/19/2017 and Postoperatively for physical therapy, occupational therapy, and pain control. She per dissipated well. Her pain was controlled postoperatively. She was walking well. She did have some residual numbness down the right lower extremity below the knee. However, she was able to ambulate quite well. She was discharged on postoperative day 2 in good condition to home. We will see her back in one month for follow-up in the clinic. - Discharge Data Discharge Date: 06/21/17 Discharge Disposition: Home, Self-Care 01 Condition: Good - Discharge Diagnosis/Problem(s) (1) Acute exacerbation of chronic low back pain SNOMED Code(s): 253698396 ICD Code: M54.5 - LOW BACK PAIN; G89.29 - OTHER CHRONIC PAIN Status: Acute Current Visit: No (2) Pseudoarthrosis of lumbar spine SNOMED Code(s): 136064964 ICD Code: S32.009K - UNSP FRACTURE OF UNSP LUM VERTEBRA, SUBS FOR FX W NONUNION Status: Chronic Current Visit: No - Patient Summary/Data Operative Procedure(s) Performed: revision tlif L4-S1 Complications: none Consults: Consultations 06/19/17 19:53 OT Evaluation and Treatment [CONS] Routine Please Evaluate and Treat. OT Reason for Consult: Strengthening This query below is only for informational purposes and is not editable. PT Evaluation and Treatment [CONS] Routine Please Evaluate and Treat. PT Reason for Consult: Strengthening This query below is only for informational purposes and is not editable. - Patient Instructions Diet: Usual Diet as Tolerated Activity: Apply Ice, As Tolerated, Full Weight Bearing, No Lifting Over 10 Pounds Driving: Do Not Drive Showering/Bathing: May Shower Wound/Incision Care: Keep Operative Site/Wound Site Clean and Dry, Change Dressing Daily Notify Provider of: Fever, Increased Pain, Swelling and Redness, Drainage, Nausea and/or Vomiting - Discharge Plan Prescriptions/Med Rec: hydrOXYzine HCl [hydrOXYzine] 25 mg PO Q8HR PRN #90 tablet PRN Reason: Pain Diazepam [Valium] 2 mg PO TID PRN #90 tablet PRN Reason: Spasms oxyCODONE 7.5 mg PO Q6H PRN #120 tablet PRN Reason: Pain traMADol [Ultram] 100 mg PO Q6H PRN #120 tablet PRN Reason: Pain Home Medications: Home Meds Doxepin [SINEquan] 75 mg PO BEDTIME 11/30/15 [History] QUEtiapine Fumarate [Quetiapine Fumarate] 300 mg PO BEDTIME 12/17/15 [History] Albuterol Sulfate [Proair Hfa] 2 puff IH Q6H PRN 03/20/16 [History] Omeprazole 40 mg PO ACBREAKFAST 03/20/16 [History] OLANZapine [Olanzapine] 5 mg PO BID 04/23/16 [History] Levothyroxine 0.175 mcg PO DAILY 07/19/16 [History] Cyanocobalamin (Vitamin B-12) [Vitamin B-12] 1,000 mcg PO DAILY 07/22/16 [ History] Prazosin [Minpress] 1 mg PO BEDTIME 07/22/16 [History] Rizatriptan Benzoate [Maxalt] 10 mg PO ASDIRECTED PRN 07/22/16 [History] lamoTRIgine [Lamictal] 150 mg PO DAILY 07/22/16 [History] Dicyclomine [Bentyl] 10 mg PO QID 07/24/16 [History] Zolpidem Tartrate [Ambien] 10 mg PO BEDTIME 07/24/16 [History] Ondansetron [Zofran ODT] 4 mg PO Q4H PRN #30 tab.dis 07/28/16 [Rx] Fluticasone/Vilanterol [Breo Ellipta 200-25 Mcg INH] 1 each IH DAILY 09/06/16 [ History] Celecoxib [CeleBREX] 200 mg PO DAILY #14 cap 02/20/17 [Rx] DULoxetine [Cymbalta] 2 tab PO DAILY 05/28/17 [History] Cyclobenzaprine [Flexeril] 10 mg PO QID PRN 05/31/17 [History] Diazepam [Valium] 2 mg PO TID PRN #90 tablet 06/21/17 [Rx] hydrOXYzine HCl [hydrOXYzine] 25 mg PO Q8HR PRN #90 tablet 06/21/17 [Rx] oxyCODONE 7.5 mg PO Q6H PRN #120 tablet 06/21/17 [Rx] traMADol [Ultram] 100 mg PO Q6H PRN #120 tablet 06/21/17 [Rx] Patient Handouts: Preventing Constipation After Surgery, Spinal Fusion, Care After Referrals: Ladan Raymundo NP [Nurse Practitioner] - 07/16/17 1:00 pm - Patient Data Vitals - Most Recent: Last Vital Signs Temp 96.9 F 06/21/17 07:05 Pulse 79 06/21/17 07:05 Resp 16 06/21/17 07:05 BP 115/70 06/21/17 07:05 Pulse Ox 99 06/21/17 07:05 Weight - Most Recent: 209 lb I&O - Last 24 hours: Intake & Output 06/20/17 06/21/17 06/21/17 22:59 06:59 14:59 Intake Total 4960 850 560 Output Total 3750 1800 600 Balance 1210 -950 -40 Lab Results - Last 24 hrs: Laboratory Results - last 24 hr 06/21/17 06/21/17 Range/Units 05:40 05:40 WBC 13.1 H (4.5-11.0) K/uL RBC 3.72 (3.30-5.50) M/uL Hgb 12.2 (12.0-15.0) g/dL Hct 35.6 L (36.0-48.0) % MCV 96 (80-98) fL MCH 33 H (27-31) pg MCHC 34 (32-36) % Plt Count 231 (150-400) K/uL Neut % (Auto) 94 H (36-66) % Lymph % (Auto) 4 L (24-44) % [place] % (Auto) 3 (2-6) % Eos % (Auto) 0 L (2-4) % Baso % (Auto) 0 (0-1) % Sodium 142 (140-148) mmol/L Potassium 3.6 (3.6-5.2) mmol/L Chloride 105 (100-108) mmol/L Carbon Dioxide 25 (21-32) mmol/L Anion Gap 11.9 (5.0-14.0) mmol/L BUN 5 L (7-18) mg/dL Creatinine 0.7 (0.6-1.0) mg/dL Est Cr Clr Drug Dosing 113.16 mL/min Estimated GFR (MDRD) > 60 (>60) Glucose 146 H (74-106) mg/dL Calcium 8.7 (8.5-10.1) mg/dL Med Orders - Current: Current Medications Al Hydroxide/Mg Hydroxide (Mag-Al Plus) 30 ml PO Q4H PRN PRN Reason: Indigestion Albuterol (Ventolin Hfa) 0 gm INH Q6H PRN PRN Reason: Shortness of Breath Cyanocobalamin (Vitamin B12) 1,000 mcg PO DAILY [facility] Last Admin: 06/21/17 09:20 Dose: 1,000 mcg Diazepam (Valium.) 5 mg PO Q6H PRN PRN Reason: Spasms Last Admin: 06/21/17 07:40 Dose: 5 mg Dicyclomine HCl (Bentyl) 10 mg PO QID [facility] Last Admin: 06/21/17 09:21 Dose: 10 mg Doxepin HCl (Sinequan) 75 mg PO BEDTIME [facility] Last Admin: 06/20/17 20:57 Dose: 75 mg Duloxetine HCl (Cymbalta) 60 mg PO DAILY [facility] Last Admin: 06/21/17 09:20 Dose: 60 mg Hydromorphone HCl (Dilaudid) 1 mg IVPUSH Q2H PRN PRN Reason: Pain Hydroxyzine HCl (Atarax) 100 mg PO QID PRN PRN Reason: Pain Last Admin: 06/21/17 06:52 Dose: 100 mg Clindamycin Phosphate 600 mg/ (Sodium Chloride) 54 mls @ 108 mls/hr IV Q8H [facility] Last Admin: 06/21/17 09:18 Dose: Not Given Lamotrigine 100 mg/ (Lamotrigine 50 mg) 150 mg PO DAILY [facility] Last Admin: 06/21/17 09:20 Dose: 150 mg Levothyroxine Sodium 100 mcg/ (Levothyroxine Sodium 75 mcg) 175 mcg PO ACBREAKFAST [facility] Last Admin: 06/21/17 06:52 Dose: 175 mcg Magnesium Hydroxide (Milk Of Magnesia) 30 ml PO BID PRN PRN Reason: Constipation Last Admin: 06/20/17 17:28 Dose: 30 ml Mometasone Furoate/Formoterol Fumar (Dulera 200-5 Mcg) 0 puff IH BIDRT [facility] Last Admin: 06/21/17 07:31 Dose: 2 puff Naloxone HCl (Narcan) 0.2 mg IVPUSH ONETIME PRN PRN Reason: Oversedation Olanzapine (Zyprexa) 5 mg PO BID [facility] Last Admin: 06/21/17 09:21 Dose: 5 mg Ondansetron HCl (Zofran) 8 mg IVPUSH Q4H PRN PRN Reason: Nausea/Vomiting Oxycodone HCl (Oxycodone) 5 - 10 mg PO Q6H PRN PRN Reason: Pain Last Admin: 06/21/17 09:25 Dose: 10 mg Prazosin HCl (Minpress) 1 mg PO BEDTIME [facility] Last Admin: 06/20/17 20:56 Dose: 1 mg Quetiapine Fumarate (Seroquel) 300 mg PO BEDTIME [facility] Last Admin: 06/20/17 20:57 Dose: 300 mg Rizatriptan Benzoate (Maxalt Fire Investigator) 10 mg PO ASDIRECTED PRN PRN Reason: Headache Last Admin: 06/21/17 03:25 Dose: 10 mg Scopolamine (Transderm-Scop) 1.5 mg TOP Q72H [facility] Stop: 06/22/17 04:00 Last Admin: 06/19/17 11:22 Dose: 1.5 mg Senna (Senna) 8.6 mg PO BID PRN PRN Reason: Constipation Sodium Chloride (Saline Flush) 10 ml FLUSH ASDIRECTED PRN PRN Reason: Keep Vein Open Tramadol HCl (Ultram) 100 mg PO Q6H PRN PRN Reason: Pain Last Admin: 06/21/17 06:52 Dose: 100 mg Zolpidem Tartrate (Ambien) 5 mg PO BEDTIME PRN PRN Reason: Sleep Last Admin: 06/20/17 22:33 Dose: 5 mg Discontinued Medications Ropivacaine 49.25 ml/Ketorolac Tromethamine 30 mg/Epinephrine HCl 0.5 mg/ Clonidine HCl 80 mcg/ Sodium Chloride 48.45 ml 0 ml INJECT ONETIME ONE Stop: 06/19/17 14:46 Last Admin: 06/19/17 17:22 Dose: 100 ml Dexamethasone (Dexamethasone) Confirm Administered Dose 4 mg .ROUTE .STK-MED ONE Stop: 06/19/17 13:01 Dexamethasone (Dexamethasone) 10 mg IVPUSH Q6H [facility] Stop: 06/21/17 06:01 Last Admin: 06/21/17 07:10 Dose: Not Given Diazepam (Valium) 5 mg IVPUSH Q6H PRN PRN Reason: Spasms Last Admin: 06/20/17 05:14 Dose: 5 mg Fentanyl (Sublimaze) Confirm Administered Dose 100 mcg .ROUTE .STK-MED ONE Stop: 06/19/17 20:14 Fentanyl Citrate (Fentanyl) Confirm Administered Dose 500 mcg .ROUTE .STK-MED ONE Stop: 06/19/17 13:00 Gabapentin (Neurontin) 300 mg PO ONETIME ONE Stop: 06/19/17 10:59 Last Admin: 06/19/17 11:22 Dose: 300 mg Glycopyrrolate (Robinul) Confirm Administered Dose 1 mg .ROUTE .STK-MED ONE Stop: 06/19/17 19:45 Tranexamic Acid 970 mg/ Sodium (Chloride) 59.7 mls @ 238.8 mls/hr IV Q3H [facility] Stop: 06/19/17 17:59 Last Admin: 06/19/17 20:25 Dose: 238 mls/hr Ketamine HCl 100 mg/ Sodium (Chloride) 100 mls @ 19 mls/hr IV ASDIRECTED [facility] Stop: 06/19/17 16:45 Lactated Ringer's (Ringers, Lactated) 1,000 mls @ 0 mls/hr IV ASDIRECTED [facility] PRN Reason: KVO Last Admin: 06/19/17 11:05 Dose: 50 mls/hr Clindamycin Phosphate 900 mg/ (Sodium Chloride) 106 mls @ 200 mls/hr IV ONETIME ONE Stop: 06/19/17 15:01 Last Admin: 06/19/17 16:20 Dose: 200 mls/hr Lactated Ringer's (Ringers, Lactated) Confirm Administered Dose 1,000 mls @ as directed .ROUTE .STK-MED ONE Stop: 06/19/17 18:31 Acetaminophen 1,000 mg/ Premix 100 mls @ 400 mls/hr IV Q6H [facility] Stop: 06/20/17 14:14 Last Admin: 06/20/17 14:16 Dose: 400 mls/hr Clindamycin Phosphate 600 mg/ (Sodium Chloride) 54 mls @ 100 mls/hr IV Q8H [facility] Stop: 06/20/17 16:34 Last Admin: 06/20/17 00:35 Dose: 100 mls/hr Ketamine HCl (Ketalar) 32 mg IV ONETIME ONE Stop: 06/19/17 14:46 Last Admin: 06/20/17 10:33 Dose: Not Given Ketorolac Tromethamine (Toradol) 30 mg IVPUSH Q8H [facility] Stop: 06/20/17 04:01 Last Admin: 06/20/17 03:46 Dose: 30 mg Midazolam HCl (Versed 1 Mg/Ml) Confirm Administered Dose 2 mg .ROUTE .STK-MED ONE Stop: 06/19/17 16:32 Midazolam HCl (Versed 1 Mg/Ml) Confirm Administered Dose 2 mg .ROUTE .STK-MED ONE Stop: 06/19/17 20:14 Neostigmine Methylsulfate (Neostigmine) Confirm Administered Dose 5 mg .ROUTE .STK-MED ONE Stop: 06/19/17 19:45 Non-Formulary Medication (Fluticasone/Vilanterol [Breo Ellipta 200-25 Mcg Inh]) 1 each IH DAILY [facility] Non-Formulary Medication (Levothyroxine [Levothyroxine]) 0.175 mcg PO DAILY [facility] Ondansetron HCl (Zofran) Confirm Administered Dose 4 mg .ROUTE .STK-MED ONE Stop: 06/19/17 13:01 Oxycodone HCl (Oxycodone) 5 mg PO Q4H PRN PRN Reason: Pain Last Admin: 06/20/17 03:06 Dose: 5 mg Povidone Iodine (Betadine 10% Soln) Confirm Administered Dose 1 ml .ROUTE .STK- MED ONE Stop: 06/19/17 08:21 Last Admin: 06/19/17 17:15 Dose: 40 ml Propofol (Diprivan 20 Ml) Confirm Administered Dose 200 mg .ROUTE .STK-MED ONE Stop: 06/19/17 13:01 Propofol (Diprivan 20 Ml) Confirm Administered Dose 400 mg .ROUTE .STK-MED ONE Stop: 06/19/17 16:44 Propofol (Diprivan 20 Ml) Confirm Administered Dose 400 mg .ROUTE .STK-MED ONE Stop: 06/19/17 17:22 Propofol (Diprivan 20 Ml) Confirm Administered Dose 200 mg .ROUTE .STK-MED ONE Stop: 06/19/17 17:24 Propofol (Diprivan 20 Ml) Confirm Administered Dose 200 mg .ROUTE .STK-MED ONE Stop: 06/19/17 18:08 Propofol (Diprivan 20 Ml) Confirm Administered Dose 200 mg .ROUTE .STK-MED ONE Stop: 06/19/17 19:36 Quetiapine Fumarate (Seroquel) 300 mg PO BEDTIME [facility] Last Admin: 06/20/17 10:36 Dose: Not Given Quetiapine Fumarate (Seroquel) Confirm Administered Dose 300 mg .ROUTE .ST-MED ONE Stop: 06/19/17 21:44 Last Admin: 06/19/17 22:57 Dose: Not Given Quetiapine Fumarate (Seroquel) 300 mg PO BEDTIME ONE Stop: 06/20/17 21:01 Last Admin: 06/19/17 22:24 Dose: 300 mg Rocuronium [place] (Zemuron) Confirm Administered Dose 50 mg .ROUTE .STK-MED ONE Stop: 06/19/17 13:01 Succinylcholine Chloride (Quelicin) Confirm Administered Dose 200 mg .ROUTE .STK -MED ONE Stop: 06/19/17 13:01 Thrombin (Thrombin-Jmi) Confirm Administered Dose 15,000 unit .ROUTE .STK-MED ONE Stop: 06/19/17 08:21 Last Admin: 06/19/17 17:16 Dose: 10,000 unit *Q Meaningful Use (DIS) - VTE *Q VTE Criteria *Q: - Stroke *Q Stroke Criteria *Q: - AMI *Q AMI Criteria *Q:
[2017-06-21 11:44] VITALS: BP 106/63
== END 2017-06-21 12:10 | disposition home or self-care (01) | DRG 454 ==
LOC: JP.SDS 09:55 → JP.MS 06-19 09:43 → JP.SDS 06-19 09:43 → EDSTATUS 06-19 10:00 → JP.MS 06-19 19:53
PROVIDERS: ADMIT Orthopaedic Surgery; ATTEND Orthopaedic Surgery
PROC: [UNRECOGNIZED PROCEDURE] (principal; 2017-06-19)
PROC: 0SG30J1 Fusion of Lumbosacral Joint with Synthetic Substitute, Posterior Approach, Posterior Column, Open Approach (ICD-10-PCS; 2017-06-19)
PROC: 0RW Upper Joints, Revision (ICD-10-PCS; 2017-06-19)
PROC: 0ST20ZZ Resection of Lumbar Vertebral Disc, Open Approach (ICD-10-PCS; 2017-06-19)
DX: S32.009K Unspecified fracture of unspecified lumbar vertebra, subsequent encounter for fracture with nonunion (principal); M96.0 Pseudarthrosis after fusion or arthrodesis; G89.29 Other chronic pain; M54.5 Low back pain; E78.00 Pure hypercholesterolemia, unspecified; E03.9 Hypothyroidism, unspecified; M54.41 Lumbago with sciatica, right side; M54.42 Lumbago with sciatica, left side; Z98.1 Arthrodesis status
CPT/HCPCS: 20930; 22633; 22634; 22840; 22853; 36415; 76001; 80048; 85025; 86850; 86900; 86901; 94664; 94762; 97162-GP; 97535-GP; 97762-GP; A9270-GY; C1713; C1776; J0131; J0171; J0330; J0735; J1100; J1885; J2250; J2405; J2704; J2710; J2795; J3010; J3360; J7030; J7050; J7120; S0077

== ENCOUNTER 2017-06-08 16:28 | Emergency (ER) | payer MEDICAID ==
[2017-06-08 16:51] VITALS: BP 128/81
[2017-06-08] MEDS ORDERED: Ketorolac 60 MG/2 ML SDV IM ONE (17:17)
--- NOTE | 2017-06-08 18:12 | EDM.PDOC ---
ED HPI GENERAL MEDICAL PROBLEM - General Chief Complaint: Back Pain or Injury Stated Complaint: BACK PAIN Time Seen by Provider: 06/08/17 17:00 Source of Information: Reports: Patient History Limitations: Reports: No Limitations - History of Present Illness INITIAL COMMENTS - FREE TEXT/NARRATIVE: 37-year-old female with pending lower back surgery in the next 1-2 weeks presents with back pain. She frequency the ER often. She is having trouble sleeping at night, and has difficulty with bending. She also says her "legs are numb" although reviewing the MRI results and discussing her back issues with orthopedics there is no nerve involvement. No fevers or chills, no dysuria. Onset: Gradual Duration: Waxing/Waning Severity: Moderate Associated Symptoms: Reports: No Other Symptoms Left Lower Back Pain Score (Numeric/FACES): 9 - Related Data Allergies Allergy/AdvReac Type Severity Reaction Status Date / Time bupropion [From Wellbutrin] Allergy Other Verified 04/17/17 12:52 latex Allergy Rash Verified 04/17/17 12:52 pantoprazole sodium Allergy Rash Verified 04/17/17 12:52 [From Protonix] Penicillins Allergy Rash Verified 04/17/17 12:52 fentanyl AdvReac Delusions Verified 04/17/17 12:52 promethazine HCl AdvReac Delusions Verified 04/17/17 12:52 [From Phenergan] Home Meds: Home Meds Doxepin [SINEquan] 75 mg PO BEDTIME 11/30/15 [History] QUEtiapine Fumarate [Quetiapine Fumarate] 300 mg PO BEDTIME 12/17/15 [History] Albuterol Sulfate [Proair Hfa] 2 puff IH Q6H PRN 03/20/16 [History] Omeprazole 40 mg PO ACBREAKFAST 03/20/16 [History] OLANZapine [Olanzapine] 5 mg PO BID 04/23/16 [History] Levothyroxine 0.175 mcg PO DAILY 07/19/16 [History] Cyanocobalamin (Vitamin B-12) [Vitamin B-12] 1,000 mcg PO DAILY 07/22/16 [ History] Prazosin [Minpress] 1 mg PO BEDTIME 07/22/16 [History] Rizatriptan Benzoate [Maxalt] 10 mg PO ASDIRECTED PRN 07/22/16 [History] lamoTRIgine [Lamictal] 150 mg PO DAILY 07/22/16 [History] Dicyclomine [Bentyl] 10 mg PO QID 07/24/16 [History] Zolpidem Tartrate [Ambien] 10 mg PO BEDTIME 07/24/16 [History] Ondansetron [Zofran ODT] 4 mg PO Q4H PRN #30 tab.dis 07/28/16 [Rx] FLUoxetine [PROzac] 40 mg PO DAILY 08/02/16 [History] Fluticasone/Vilanterol [Breo Ellipta 200-25 Mcg INH] 1 each IH DAILY 09/06/16 [ History] Celecoxib [CeleBREX] 200 mg PO DAILY #14 cap 02/20/17 [Rx] DULoxetine [Cymbalta] 1 tab PO DAILY 05/28/17 [History] Cyclobenzaprine [Flexeril] 10 mg PO QID PRN 05/31/17 [History] Past Medical History HEENT History: Reports: Impaired Vision Other HEENT History: wears glasses Cardiovascular History: Reports: High Cholesterol Respiratory History: Reports: Asthma, Bronchitis, Recurrent, Sleep Apnea Gastrointestinal History: Reports: Chronic Constipation, Chronic Diarrhea, Colon Polyp, GERD, GI Bleed, Irritable Bowel Syndrome, Other (See Below) Other Gastrointestinal History: colitis, fatty liver Genitourinary History: Reports: UTI, Recurrent 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 hardware removed left foot Neurological History: Reports: Migraines Psychiatric History: Reports: ADHD, Anxiety, Bipolar, Depression, Psych Hospitalization(s), Psychosis, PTSD, Suicide Attempt Other Psychiatric History: suicide attempt Endocrine/Metabolic History: Reports: Hypothyroidism, Obesity/BMI 30+, Vitamin D Deficiency Hematologic History: Reports: B12 Deficiency Immunologic History: Reports: None Oncologic (Cancer) History: Reports: None Dermatologic History: Reports: None - Infectious Disease History Infectious Disease History: Reports: Chicken Pox - Past Surgical History Respiratory Surgical History: Reports: None GI Surgical History: Reports: Bariatric Procedure, Cholecystectomy, Colonoscopy , EGD, Polypectomy Female Surgical History: Reports: Section, Hysterectomy, Salpingo- Oophorectomy Neurological Surgical History: Reports: Lumbar Spine, Other (See Below) Other Neurological Surgeries/Procedures: 6 screws and cage in back Musculoskeletal Surgical History: Reports: Arthroscopic Knee Dermatological Surgical History: Reports: None Social & Family History - Family History Family Medical History: Noncontributory - Tobacco Use Smoking Status *Q: Former Smoker Years of Tobacco use: 1 Packs/Tins Daily: 1 Used Tobacco, but Quit: Yes Month Tobacco Last Used: 12 Second Hand Smoke Exposure: Yes - Caffeine Use Caffeine Use: Reports: None - Alcohol Use Days Per Week of Alcohol Use: 0 - Recreational Drug Use Recreational Drug Use: No Drug Use in Last 12 Months: No Recreational Drug Type: Reports: Marijuana/Hashish - Living Situation & Occupation Living situation: Reports: , Single Occupation: Disabled ED ROS GENERAL - Review of Systems Review Of Systems: See Below Constitutional: Denies: Fever, Chills Respiratory: Denies: Shortness of Breath Cardiovascular: Denies: Chest Pain GI/Abdominal: Denies: Abdominal Pain, Nausea, Vomiting Musculoskeletal: Reports: Back Pain Skin: Reports: No Symptoms Neurological: Reports: Paresthesia (Leg paresthesias) ED EXAM,LOWER BACK PAIN/INJURY - Physical Exam Exam: See Below Exam Limited By: No Limitations General Appearance: Alert, No Apparent Distress (Looks uncomfortable but not distressed) Respiratory/Chest: No Respiratory Distress, Lungs Clear Back Exam: Paraspinal Tenderness (Reacts with tenderness to palpation over the lower spine L3-L5) Neurological: No Motor/Sensory Deficits. No: Straight Leg Raise (L), Straight Leg Raise (R) Skin Exam: Warm, Dry Course - Vital Signs Last Recorded V/S: Last Vital Signs Temp 98.4 F 06/08/17 16:50 Pulse 109 H 06/08/17 16:50 Resp 16 06/08/17 16:50 BP 128/81 06/08/17 16:50 Pulse Ox 96 06/08/17 16:50 - Orders/Labs/Meds Meds: Medications Discontinued Medications Generic Name Dose Route Start Last Admin Trade Name Freq PRN Reason Stop Dose Admin Ketorolac Tromethamine 60 mg 06/08/17 17:17 06/08/17 17:25 Toradol IM 06/08/17 17:18 60 mg ONETIME ONE Administration - Re-Assessments/Exams Free Text/Narrative Re-Assessment/Exam: 06/08/17 18:11 She was given an injection of Toradol 60 mg which "didn't do anything". Agreed to give her 15 tramadol to take sparingly over the next several days for extra pain control. Encouraged to stay active and follow-up with Dr. Silva as scheduled Departure - Departure Time of Disposition: 18:25 Disposition: Home, Self-Care 01 Condition: Good Clinical Impression: Acute exacerbation of chronic low back pain - Discharge Information Instructions: Back Pain, Adult, [id number] Referrals: Christian Akbar PA-C [Primary Care Provider] - Forms: ED Department Discharge Care Plan Goals: Try to stay active but avoid lifting. Continue your medications as prescribed adding tramadol as needed for extra pain control.
== END 2017-06-08 18:25 | disposition home or self-care (01) ==
LOC: JP.ED 16:28
DX: G89.29 Other chronic pain (principal); M54.5 Low back pain; Z88.0 Allergy status to penicillin; Z88.8 Allergy status to other drugs, medicaments and biological substances; Z79.899 Other long term (current) drug therapy; Z87.891 Personal history of nicotine dependence; Z98.890 Other specified postprocedural states; Z91.040 Latex allergy status
CPT/HCPCS: 96372; 99283; J1885

== ENCOUNTER 2017-06-22 09:20 | Emergency (ER) | payer MEDICAID ==
[2017-06-22 09:27] VITALS: BP 124/86
[2017-06-22] MEDS ORDERED: HYDROmorphone 1 MG/ML Syringe IM ONE (09:44)
[2017-06-22] MEDS ORDERED: Ondansetron 4 MG Tab.DIS PO ONE (09:45)
--- NOTE | 2017-06-22 09:50 | EDM.PDOC ---
ED HPI GENERAL MEDICAL PROBLEM - General Chief Complaint: Back Pain or Injury Stated Complaint: FALL VIA NORTH Time Seen by Provider: 06/22/17 09:46 Source of Information: Reports: Patient History Limitations: Reports: No Limitations - History of Present Illness INITIAL COMMENTS - FREE TEXT/NARRATIVE: pt was walking on a hardwood floor and she slipped with her walker. . She is now having pain accross the lower back. . She has had numbness in her rt leg since the surgery. She is able to bear wt on the leg. She does not have full strength or movement in the leg. Onset: Today, Other (pt fell today on a hardwood floor. ) Lower Back Pain Score (Numeric/FACES): 10 - Related Data Allergies Allergy/AdvReac Type Severity Reaction Status Date / Time bupropion [From Wellbutrin] Allergy Other Verified 06/22/17 09:32 latex Allergy Rash Verified 06/22/17 09:32 pantoprazole sodium Allergy Rash Verified 06/22/17 09:32 [From Protonix] Penicillins Allergy Rash Verified 06/22/17 09:32 fentanyl AdvReac Delusions Verified 06/22/17 09:32 promethazine HCl AdvReac Delusions Verified 06/22/17 09:32 [From Phenergan] Home Meds: Home Meds Doxepin [SINEquan] 75 mg PO BEDTIME 11/30/15 [History] QUEtiapine Fumarate [Quetiapine Fumarate] 300 mg PO BEDTIME 12/17/15 [History] Albuterol Sulfate [Proair Hfa] 2 puff IH Q6H PRN 03/20/16 [History] Omeprazole 40 mg PO ACBREAKFAST 03/20/16 [History] OLANZapine [Olanzapine] 5 mg PO BID 04/23/16 [History] Levothyroxine 0.175 mcg PO DAILY 07/19/16 [History] Cyanocobalamin (Vitamin B-12) [Vitamin B-12] 1,000 mcg PO DAILY 07/22/16 [ History] Prazosin [Minpress] 1 mg PO BEDTIME 07/22/16 [History] Rizatriptan Benzoate [Maxalt] 10 mg PO ASDIRECTED PRN 07/22/16 [History] lamoTRIgine [Lamictal] 150 mg PO DAILY 07/22/16 [History] Dicyclomine [Bentyl] 10 mg PO QID 07/24/16 [History] Zolpidem Tartrate [Ambien] 10 mg PO BEDTIME 07/24/16 [History] Ondansetron [Zofran ODT] 4 mg PO Q4H PRN #30 tab.dis 07/28/16 [Rx] Fluticasone/Vilanterol [Breo Ellipta 200-25 Mcg INH] 1 each IH DAILY 09/06/16 [ History] Celecoxib [CeleBREX] 200 mg PO DAILY #14 cap 02/20/17 [Rx] DULoxetine [Cymbalta] 2 tab PO DAILY 05/28/17 [History] Cyclobenzaprine [Flexeril] 10 mg PO QID PRN 05/31/17 [History] Diazepam [Valium] 2 mg PO TID PRN #90 tablet 06/21/17 [Rx] hydrOXYzine HCl [hydrOXYzine] 25 mg PO Q8HR PRN #90 tablet 06/21/17 [Rx] oxyCODONE 7.5 mg PO Q6H PRN #120 tablet 06/21/17 [Rx] traMADol [Ultram] 100 mg PO Q6H PRN #120 tablet 06/21/17 [Rx] Past Medical History HEENT History: Reports: Impaired Vision Other HEENT History: wears glasses Cardiovascular History: Reports: High Cholesterol Respiratory History: Reports: Asthma, Bronchitis, Recurrent, Sleep Apnea Gastrointestinal History: Reports: Chronic Constipation, Chronic Diarrhea, Colon Polyp, GERD, GI Bleed, Irritable Bowel Syndrome, Other (See Below) Other Gastrointestinal History: colitis, fatty liver Genitourinary History: Reports: UTI, Recurrent 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 hardware removed left foot Neurological History: Reports: Migraines Psychiatric History: Reports: ADHD, Anxiety, Bipolar, Depression, Psych Hospitalization(s), Psychosis, PTSD, Suicide Attempt Other Psychiatric History: suicide attempt Endocrine/Metabolic History: Reports: Hypothyroidism, Obesity/BMI 30+, Vitamin D Deficiency Hematologic History: Reports: B12 Deficiency Immunologic History: Reports: None Oncologic (Cancer) History: Reports: None Dermatologic History: Reports: None - Infectious Disease History Infectious Disease History: Reports: Chicken Pox - Past Surgical History HEENT Surgical History: Reports: None GI Surgical History: Reports: Bariatric Procedure, Cholecystectomy, Colonoscopy , EGD, Polypectomy Female Surgical History: Reports: Section, Hysterectomy, Salpingo- Oophorectomy Neurological Surgical History: Reports: Lumbar Spine, Other (See Below) Other Neurological Surgeries/Procedures: 6 screws and cage in back Musculoskeletal Surgical History: Reports: Arthroscopic Knee Social & Family History - Family History Family Medical History: Noncontributory - Tobacco Use Smoking Status *Q: Never Smoker Years of Tobacco use: 1 Packs/Tins Daily: 1 Used Tobacco, but Quit: Yes Month Tobacco Last Used: 2015 Second Hand Smoke Exposure: No - Caffeine Use Caffeine Use: Reports: None - Alcohol Use Days Per Week of Alcohol Use: 0 - Recreational Drug Use Recreational Drug Use: No Drug Use in Last 12 Months: No Recreational Drug Type: Reports: Marijuana/Hashish - Living Situation & Occupation Living situation: Reports: , Single Occupation: Disabled ED ROS GENERAL - Review of Systems Review Of Systems: See Below Constitutional: Reports: No Symptoms HEENT: Reports: No Symptoms Respiratory: Reports: No Symptoms Cardiovascular: Reports: No Symptoms Endocrine: Reports: No Symptoms GI/Abdominal: Reports: No Symptoms : Reports: No Symptoms Musculoskeletal: Reports: Other (pt had a spinal fusion and disc removal on Thursday. She fell this am and she hit her back She is having pain accross the lower back. She has had ongoing numbness in the rt leg snce surgery. ) Skin: Reports: No Symptoms Neurological: Reports: Other ( numbness in the rt leg. ) Psychiatric: Reports: No Symptoms ED EXAM,LOWER BACK PAIN/INJURY - Physical Exam Exam: See Below Text/Narrative:: pt arrived with pain in her lower back after a fall. She slipped on the hardwood floor. Exam Limited By: No Limitations General Appearance: Alert, Anxious, Moderate Distress Ears: Normal TMs Nose: Normal Inspection Throat/Mouth: Normal Inspection Head: Atraumatic Neck: Normal Inspection Respiratory/Chest: No Respiratory Distress Cardiovascular: Regular Rate, Rhythm GI/Abdominal: Soft, Non-Tender (Female) Exam: Deferred Rectal (Female) Exam: Deferred Back Exam: Other (pt has a dressing on the wound which has alot of serosangious fluid on the dressing. The wound looked good. ) Extremities: Normal Inspection Neurological: Alert, Other (pt complains of numbness in the rt leg which has been going on since surgery. ) Psychiatric: Anxious Skin Exam: Warm Course - Vital Signs Last Recorded V/S: Last Vital Signs Temp 36.1 C 06/22/17 09:24 Pulse 76 06/22/17 09:24 Resp 16 06/22/17 09:24 BP 124/86 06/22/17 09:24 Pulse Ox 97 06/22/17 09:24 - Orders/Labs/Meds Meds: Medications Discontinued Medications Generic Name Dose Route Start Last Admin Trade Name Rianna PRN Reason Stop Dose Admin Hydromorphone HCl 1 mg 06/22/17 09:44 06/22/17 09:55 Dilaudid IM 06/22/17 09:45 1 mg ONETIME ONE Administration Ketorolac Tromethamine 60 mg 06/22/17 10:39 06/22/17 11:05 Toradol IM 06/22/17 10:40 60 mg ONETIME ONE Administration Ondansetron HCl 4 mg 06/22/17 09:45 06/22/17 09:55 Zofran Odt PO 06/22/17 09:46 4 mg ONETIME ONE Administration - Re-Assessments/Exams Free Text/Narrative Re-Assessment/Exam: 06/22/17 11:07 pt had lumbar spine series done which showed good alignment of all components post op. Dr Silva was contacted and he thought the pt could go home. She was given a 1 mg of dilaudid and torodol 60mg im. She is more comfortable. Departure - Departure Time of Disposition: 11:09 Disposition: Home, Self-Care 01 Condition: Fair Clinical Impression: H/O spinal fusion, Lumbar contusion - Discharge Information Referrals: PCP,None [Primary Care Provider] - Forms: ED Department Discharge Care Plan Goals: keep up coming appt with Dr Myriam Silva. , Cont same meds the same. Contact Dr Silva if further questions.
--- NOTE | 2017-06-22 10:11 | CR ---
Lumbar Spine 2 or 3V INDICATION: pain in the low back FINDINGS: Postoperative changes laminectomies at L4-L5 with wai and pedicle screw fixation and interb rony spacers L4-S1. Hardware appears intact. Bone graft material in place.
[2017-06-22] MEDS ORDERED: Ketorolac 60 MG/2 ML SDV IM ONE (10:39)
== END 2017-06-22 11:47 | disposition home or self-care (01) ==
LOC: JP.ED 09:20
DX: S30.0XXA Contusion of lower back and pelvis, initial encounter (principal); E78.00 Pure hypercholesterolemia, unspecified; J45.909 Unspecified asthma, uncomplicated; E03.9 Hypothyroidism, unspecified; F31.9 Bipolar disorder, unspecified; Z87.891 Personal history of nicotine dependence; Z98.1 Arthrodesis status; Z79.899 Other long term (current) drug therapy; Z88.0 Allergy status to penicillin; Z88.8 Allergy status to other drugs, medicaments and biological substances; Z91.040 Latex allergy status; W01.0XXA Fall on same level from slipping, tripping and stumbling without subsequent striking against object, initial encounter
CPT/HCPCS: 72100; 96374; 96375; 99284; A9270; J1170; J1885

== ENCOUNTER 2017-06-24 13:53 | Emergency (ER) | payer MEDICAID ==
[2017-06-24 14:52] VITALS: BP 121/79
--- NOTE | 2017-06-24 15:31 | EDM.PDOC ---
ED HPI GENERAL MEDICAL PROBLEM - General Chief Complaint: Back Pain or Injury Stated Complaint: RIGHT LEG NUMBNESS S/P BACK SURGERY Time Seen by Provider: 06/24/17 15:11 Source of Information: Reports: Patient, Provider History Limitations: Reports: No Limitations - History of Present Illness INITIAL COMMENTS - FREE TEXT/NARRATIVE: This patient comes in because of complaints of leg weakness. She says she had surgery by Dr. Silva on June 19. Ever since then she's complained of some weakness in her right leg. She said it's not getting any better to seems to be getting worse. She is up walking with a walker and says she fell twice today and she fell 2 days ago and was seen in the ER for this. She also complains that her right leg is numb. She's not having any bladder or bowel problems. Lower Back Pain Score (Numeric/FACES): 9 - Related Data Allergies Allergy/AdvReac Type Severity Reaction Status Date / Time bupropion [From Wellbutrin] Allergy Other Verified 06/24/17 14:51 latex Allergy Rash Verified 06/24/17 14:51 pantoprazole sodium Allergy Rash Verified 06/24/17 14:51 [From Protonix] Penicillins Allergy Rash Verified 06/24/17 14:51 fentanyl AdvReac Delusions Verified 06/24/17 14:51 promethazine HCl AdvReac Delusions Verified 06/24/17 14:51 [From Phenergan] Home Meds: Home Meds Doxepin [SINEquan] 75 mg PO BEDTIME 11/30/15 [History] QUEtiapine Fumarate [Quetiapine Fumarate] 300 mg PO BEDTIME 12/17/15 [History] Albuterol Sulfate [Proair Hfa] 2 puff IH Q6H PRN 03/20/16 [History] Omeprazole 40 mg PO ACBREAKFAST 03/20/16 [History] OLANZapine [Olanzapine] 5 mg PO BID 04/23/16 [History] Levothyroxine 0.175 mcg PO DAILY 07/19/16 [History] Cyanocobalamin (Vitamin B-12) [Vitamin B-12] 1,000 mcg PO DAILY 07/22/16 [ History] Prazosin [Minpress] 1 mg PO BEDTIME 07/22/16 [History] Rizatriptan Benzoate [Maxalt] 10 mg PO ASDIRECTED PRN 07/22/16 [History] lamoTRIgine [Lamictal] 150 mg PO DAILY 07/22/16 [History] Dicyclomine [Bentyl] 10 mg PO QID 07/24/16 [History] Zolpidem Tartrate [Ambien] 10 mg PO BEDTIME 07/24/16 [History] Ondansetron [Zofran ODT] 4 mg PO Q4H PRN #30 tab.dis 07/28/16 [Rx] Fluticasone/Vilanterol [Breo Ellipta 200-25 Mcg INH] 1 each IH DAILY 09/06/16 [ History] Celecoxib [CeleBREX] 200 mg PO DAILY #14 cap 02/20/17 [Rx] DULoxetine [Cymbalta] 2 tab PO DAILY 05/28/17 [History] Cyclobenzaprine [Flexeril] 10 mg PO QID PRN 05/31/17 [History] Diazepam [Valium] 2 mg PO TID PRN #90 tablet 06/21/17 [Rx] hydrOXYzine HCl [hydrOXYzine] 25 mg PO Q8HR PRN #90 tablet 06/21/17 [Rx] oxyCODONE 7.5 mg PO Q6H PRN #120 tablet 06/21/17 [Rx] traMADol [Ultram] 100 mg PO Q6H PRN #120 tablet 06/21/17 [Rx] Diazepam [Valium] 1 tab PO TID PRN 06/24/17 [History] oxyCODONE [oxyCODONE] 1 tab PO Q6H PRN 06/24/17 [History] Past Medical History HEENT History: Reports: Impaired Vision Other HEENT History: wears glasses Cardiovascular History: Reports: High Cholesterol Respiratory History: Reports: Asthma, Bronchitis, Recurrent, Sleep Apnea Gastrointestinal History: Reports: Chronic Constipation, Chronic Diarrhea, Colon Polyp, GERD, GI Bleed, Irritable Bowel Syndrome, Other (See Below) Other Gastrointestinal History: colitis, fatty liver Genitourinary History: Reports: UTI, 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 hardware removed left foot Neurological History: Reports: Migraines Psychiatric History: Reports: ADHD, Anxiety, Bipolar, Depression, Psych Hospitalization(s), Psychosis, PTSD, Suicide Attempt Other Psychiatric History: suicide attempt Endocrine/Metabolic History: Reports: Hypothyroidism, Obesity/BMI 30+, Vitamin D Deficiency Hematologic History: Reports: B12 Deficiency Immunologic History: Reports: None Oncologic (Cancer) History: Reports: None Dermatologic History: Reports: None - Infectious Disease History Infectious Disease History: Reports: Chicken Pox - Past Surgical History HEENT Surgical History: Reports: None GI Surgical History: Reports: Bariatric Procedure, Cholecystectomy, Colonoscopy , EGD, Polypectomy Female Surgical History: Reports: Section, Hysterectomy, Salpingo- Oophorectomy Neurological Surgical History: Reports: Lumbar Spine, Other (See Below) Other Neurological Surgeries/Procedures: 6 screws and cage in back Musculoskeletal Surgical History: Reports: Arthroscopic Knee, Other (See Below) Other Musculoskeletal Surgeries/Procedures:: back surgery Sep 19 Social & Family History - Family History Family Medical History: Noncontributory - Tobacco Use Smoking Status *Q: Never Smoker Years of Tobacco use: 1 Packs/Tins Daily: 1 Used Tobacco, but Quit: Yes Month Tobacco Last Used: 2015 Second Hand Smoke Exposure: No - Caffeine Use Caffeine Use: Reports: None - Alcohol Use Days Per Week of Alcohol Use: 0 - Recreational Drug Use Recreational Drug Use: No Drug Use in Last 12 Months: No Recreational Drug Type: Reports: Marijuana/Hashish - Living Situation & Occupation Living situation: Reports: , Single Occupation: Disabled ED ROS GENERAL - Review of Systems Review Of Systems: ROS reveals no pertinent complaints other than HPI. ED EXAM,LOWER BACK PAIN/INJURY - Physical Exam Exam: See Below Exam Limited By: No Limitations General Appearance: Alert, No Apparent Distress, Obese Neurological: Alert, Normal Mood/Affect, Normal Dorsiflexion, Normal Plantar Flexion (Strength seems to be adequate. Plantar and dorsiflexion.), Other ( Right leg strength seemed to vary at different times during the exam. At sometimes I would lift her right leg at the knee and she had no strength at all in her lower leg which is sort of flop onto the stretcher. At other times she seemed to have good strength in the quadriceps. And she would keep the leg extended when I was trying to get her just to relax so I could check her reflexes. She did seem to have good strong plantar flexion against resistance. Reflexes showed patellar reflexes 0 bilaterally and Achilles about 1-2 bilaterally. No evidence of any Babinski. She seems to have pretty much normal sensation to the lower leg and left foot.) Course - Vital Signs Last Recorded V/S: Last Vital Signs Temp 35.4 C 06/24/17 15:01 Pulse 110 H 06/24/17 15:01 Resp 16 06/24/17 15:01 BP 121/79 06/24/17 15:01 Pulse Ox 99 06/24/17 15:01 - Re-Assessments/Exams Free Text/Narrative Re-Assessment/Exam: 06/24/17 15:[address] Silva about this patient and he said he's been in close contact with her regarding these problems. He felt that nothing is unusual about her present symptoms. She has plenty of pain medications also. Departure - Departure Time of Disposition: 15:31 Disposition: Home, Self-Care 01 Condition: Fair Clinical Impression: Low back pain, Right leg weakness - Discharge Information Referrals: Sandra Alford PA [Primary Care Provider] - Additional Instructions: The symptoms you are having are not unusual after recent surgery. Continue using her present pain medications. It would be best achieved have some assistance when you're up using the walker so that you are less likely to fall. Follow-up with Dr. Silva as he is recommended return to the ER at any time if needed
== END 2017-06-24 15:48 | disposition home or self-care (01) ==
LOC: JP.ED 13:53
DX: M54.5 Low back pain (principal); R53.1 Weakness; E78.00 Pure hypercholesterolemia, unspecified; J45.909 Unspecified asthma, uncomplicated; F31.9 Bipolar disorder, unspecified; E03.9 Hypothyroidism, unspecified; Z87.891 Personal history of nicotine dependence; Z98.890 Other specified postprocedural states; Z79.899 Other long term (current) drug therapy; Z88.0 Allergy status to penicillin; Z88.8 Allergy status to other drugs, medicaments and biological substances; Z91.040 Latex allergy status
CPT/HCPCS: 99283

== ENCOUNTER 2017-07-31 13:48 | Emergency (ER) | payer MEDICAID ==
[2017-07-31 14:44] VITALS: BP 115/75
--- NOTE | 2017-07-31 16:14 | EDM.PDOC ---
ED HPI GENERAL MEDICAL PROBLEM - General Chief Complaint: Neurological Problem Stated Complaint: RT HAND NUMBNESS Time Seen by Provider: 07/31/17 16:13 Source of Information: Reports: Patient History Limitations: Reports: No Limitations - History of Present Illness INITIAL COMMENTS - FREE TEXT/NARRATIVE: pt has had long standing numbness in the 1st, 2nd and now She has now started to hve numbness on the middle finger. She is able to use the fingers. Onset: Today Duration: Hour(s): Location: Reports: Upper Extremity, Right Associated Symptoms: Reports: No Other Symptoms - Related Data Allergies Allergy/AdvReac Type Severity Reaction Status Date / Time bupropion [From Wellbutrin] Allergy Other Verified 07/31/17 14:54 latex Allergy Rash Verified 07/31/17 14:54 pantoprazole sodium Allergy Rash Verified 07/31/17 14:54 [From Protonix] Penicillins Allergy Rash Verified 07/31/17 14:54 fentanyl AdvReac Delusions Verified 07/31/17 14:54 promethazine HCl AdvReac Delusions Verified 07/31/17 14:54 [From Phenergan] Home Meds: Home Meds Doxepin [SINEquan] 75 mg PO BEDTIME 11/30/15 [History] QUEtiapine Fumarate [Quetiapine Fumarate] 300 mg PO BEDTIME 12/17/15 [History] Albuterol Sulfate [Proair Hfa] 2 puff IH Q6H PRN 03/20/16 [History] Omeprazole 40 mg PO ACBREAKFAST 03/20/16 [History] OLANZapine [Olanzapine] 5 mg PO BID 04/23/16 [History] Levothyroxine 0.175 mcg PO DAILY 07/19/16 [History] Cyanocobalamin (Vitamin B-12) [Vitamin B-12] 1,000 mcg PO DAILY 07/22/16 [ History] Prazosin [Minpress] 1 mg PO BEDTIME 07/22/16 [History] Rizatriptan Benzoate [Maxalt] 10 mg PO ASDIRECTED PRN 07/22/16 [History] lamoTRIgine [Lamictal] 150 mg PO DAILY 07/22/16 [History] Dicyclomine [Bentyl] 10 mg PO QID 07/24/16 [History] Zolpidem Tartrate [Ambien] 10 mg PO BEDTIME 07/24/16 [History] Ondansetron [Zofran ODT] 4 mg PO Q4H PRN #30 tab.dis 07/28/16 [Rx] Fluticasone/Vilanterol [Breo Ellipta 200-25 Mcg INH] 1 each IH DAILY 09/06/16 [ History] Celecoxib [CeleBREX] 200 mg PO DAILY #14 cap 02/20/17 [Rx] DULoxetine [Cymbalta] 2 tab PO DAILY 05/28/17 [History] Cyclobenzaprine [Flexeril] 10 mg PO QID PRN 05/31/17 [History] Diazepam [Valium] 2 mg PO TID PRN #90 tablet 06/21/17 [Rx] hydrOXYzine HCl [hydrOXYzine] 25 mg PO Q8HR PRN #90 tablet 06/21/17 [Rx] oxyCODONE 7.5 mg PO Q6H PRN #120 tablet 06/21/17 [Rx] traMADol [Ultram] 100 mg PO Q6H PRN #120 tablet 06/21/17 [Rx] Past Medical History HEENT History: Reports: Impaired Vision Other HEENT History: wears glasses Cardiovascular History: Reports: High Cholesterol Respiratory History: Reports: Asthma, Bronchitis, Recurrent, Sleep Apnea Gastrointestinal History: Reports: Chronic Constipation, Chronic Diarrhea, Colon Polyp, GERD, GI Bleed, Irritable Bowel Syndrome, Other (See Below) Other Gastrointestinal History: colitis, fatty liver Genitourinary History: Reports: UTI, 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, Musculoskeletal History: Reports: Back Pain, Chronic Other Musculoskeletal History: s/p reivision L4-S1 06/16/17 Neurological History: Reports: Migraines Psychiatric History: Reports: ADHD, Anxiety, Bipolar, Depression, Psych Hospitalization(s), Psychosis, PTSD, Suicide Attempt Other Psychiatric History: suicide attempt Endocrine/Metabolic History: Reports: Hypothyroidism, Obesity/BMI 30+, Vitamin D Deficiency Hematologic History: Reports: B12 Deficiency Immunologic History: Reports: None Oncologic (Cancer) History: Reports: None Dermatologic History: Reports: None - Infectious Disease History Infectious Disease History: Reports: Chicken Pox - Past Surgical History HEENT Surgical History: Reports: None GI Surgical History: Reports: Bariatric Procedure, Cholecystectomy, Colonoscopy , EGD, Polypectomy Female Surgical History: Reports: Section, Hysterectomy, Salpingo- Oophorectomy Neurological Surgical History: Reports: Lumbar Spine, Other (See Below) Other Neurological Surgeries/Procedures: 6 screws and cage in back Musculoskeletal Surgical History: Reports: Arthroscopic Knee, Other (See Below) Other Musculoskeletal Surgeries/Procedures:: back surgery Sep 19 Social & Family History - Family History Family Medical History: Noncontributory - Tobacco Use Smoking Status *Q: Never Smoker Years of Tobacco use: 1 Packs/Tins Daily: 1 Used Tobacco, but Quit: Yes Month Tobacco Last Used: 2015 Second Hand Smoke Exposure: No - Caffeine Use Caffeine Use: Reports: Coffee - Alcohol Use Days Per Week of Alcohol Use: 0 - Recreational Drug Use Recreational Drug Use: No Drug Use in Last 12 Months: No Recreational Drug Type: Reports: Marijuana/Hashish - Living Situation & Occupation Living situation: Reports: , Single Occupation: Disabled ED ROS GENERAL - Review of Systems Review Of Systems: See Below Constitutional: Reports: No Symptoms HEENT: Reports: No Symptoms Respiratory: Reports: No Symptoms Cardiovascular: Reports: No Symptoms Endocrine: Reports: No Symptoms GI/Abdominal: Reports: No Symptoms : Reports: No Symptoms Musculoskeletal: Reports: Other (numbness in the 1at, second and inner aspect of the third finger) ED EXAM, NEURO - Physical Exam Exam: See Below Text/Narrative:: pt has had long standing numbness in the 1st and second finger. She now has numbness on the inner aspect of the third finger. Exam Limited By: No Limitations General Appearance: Alert, Anxious Extremities: No: Other ( Pt had normal strength in the hand and fullrange of motion of the fingers. S he has a normal pulse at the wrist. ) Course - Vital Signs Last Recorded V/S: Last Vital Signs Temp 36.1 C 07/31/17 14:59 Pulse 121 H 07/31/17 14:59 Resp 16 07/31/17 14:59 BP 115/75 07/31/17 14:59 Pulse Ox 94 L 07/31/17 14:59 Departure - Departure Time of Disposition: 16:14 Disposition: Home, Self-Care 01 Condition: Fair Clinical Impression: Carpal tunnel syndrome - Discharge Information Instructions: Carpal Tunnel Syndrome, [id number] Referrals: Sandra Alford PA [Primary Care Provider] - Forms: ED Department Discharge Care Plan Goals: wear a wrist splint on the rt each nite . soak the hand and wrist twice daily. speak with Dr Myriam Silva if numbness is persistent.
== END 2017-07-31 18:19 | disposition home or self-care (01) ==
LOC: JP.ED 13:48
DX: G56.01 Carpal tunnel syndrome, right upper limb (principal); E66.9 Obesity, unspecified; Z91.040 Latex allergy status; Z88.0 Allergy status to penicillin; Z88.8 Allergy status to other drugs, medicaments and biological substances; Z79.899 Other long term (current) drug therapy; Z87.891 Personal history of nicotine dependence; J45.909 Unspecified asthma, uncomplicated
CPT/HCPCS: 99283

== ENCOUNTER 2017-09-14 12:57 | Emergency (ER) | payer MEDICAID ==
[2017-09-14 13:49] VITALS: BP 119/79
[2017-09-14] MEDS ORDERED: SUMAtriptan 6 MG/0.5 ML SDV SUBCUT ONE (14:14)
[2017-09-14] MEDS ORDERED: Ketorolac 60 MG/2 ML SDV IM ONE (14:20)
[2017-09-14] MEDS ORDERED: Ondansetron 4 MG Tab.DIS PO ONE (14:21)
[2017-09-14] MEDS ORDERED: SUMAtriptan 50 MG Tab PO ONE (14:53)
--- NOTE | 2017-09-14 14:54 | EDM.PDOC ---
ED HPI GENERAL MEDICAL PROBLEM - General Chief Complaint: Headache Stated Complaint: HEADACHE Time Seen by Provider: 09/14/17 14:53 Source of Information: Reports: Patient History Limitations: Reports: No Limitations - History of Present Illness INITIAL COMMENTS - FREE TEXT/NARRATIVE: pt arrived with a migraine headache. She has had this for about 2 days. She is rating her pain at a 9. She is nauseated but has not vomited. Onset: Other ( 2 days ago. ) Duration: Hour(s): Location: Reports: Chest, Other (Pt had a headache that she would describe as her typical migraine. ) Quality: Reports: Pressure Associated Symptoms: Reports: Nausea/Vomiting - Related Data Allergies Allergy/AdvReac Type Severity Reaction Status Date / Time bupropion [From Wellbutrin] Allergy Other Verified 09/14/17 13:14 latex Allergy Rash Verified 09/14/17 13:14 pantoprazole sodium Allergy Rash Verified 09/14/17 13:14 [From Protonix] Penicillins Allergy Rash Verified 09/14/17 13:14 fentanyl AdvReac Delusions Verified 09/14/17 13:14 promethazine HCl AdvReac Delusions Verified 09/14/17 13:14 [From Phenergan] Home Meds: Home Meds Doxepin [SINEquan] 75 mg PO BEDTIME 11/30/15 [History] QUEtiapine Fumarate [Quetiapine Fumarate] 300 mg PO BEDTIME 12/17/15 [History] Albuterol Sulfate [Proair Hfa] 2 puff IH Q6H PRN 03/20/16 [History] Omeprazole 40 mg PO ACBREAKFAST 03/20/16 [History] OLANZapine [Olanzapine] 5 mg PO BID 04/23/16 [History] Levothyroxine 0.175 mcg PO DAILY 07/19/16 [History] Cyanocobalamin (Vitamin B-12) [Vitamin B-12] 1,000 mcg PO DAILY 07/22/16 [ History] Prazosin [Minpress] 1 mg PO BEDTIME 07/22/16 [History] Rizatriptan Benzoate [Maxalt] 10 mg PO ASDIRECTED PRN 07/22/16 [History] lamoTRIgine [Lamictal] 150 mg PO BEDTIME 07/22/16 [History] Dicyclomine [Bentyl] 10 mg PO QID 07/24/16 [History] Zolpidem Tartrate [Ambien] 10 mg PO BEDTIME 07/24/16 [History] Ondansetron [Zofran ODT] 4 mg PO Q4H PRN #30 tab.dis 07/28/16 [Rx] Fluticasone/Vilanterol [Breo Ellipta 200-25 Mcg INH] 1 each IH DAILY 09/06/16 [ History] Celecoxib [CeleBREX] 200 mg PO DAILY #14 cap 02/20/17 [Rx] DULoxetine [Cymbalta] 2 tab PO DAILY 05/28/17 [History] Cyclobenzaprine [Flexeril] 10 mg PO QID PRN 05/31/17 [History] hydrOXYzine HCl [hydrOXYzine] 25 mg PO Q8HR PRN #90 tablet 06/21/17 [Rx] oxyCODONE 7.5 mg PO Q6H PRN #120 tablet 06/21/17 [Rx] Past Medical History HEENT History: Reports: Impaired Vision Other HEENT History: wears glasses Cardiovascular History: Reports: High Cholesterol Respiratory History: Reports: Asthma, Bronchitis, Recurrent, Sleep Apnea Gastrointestinal History: Reports: Chronic Constipation, Chronic Diarrhea, Colon Polyp, GERD, GI Bleed, Irritable Bowel Syndrome, Other (See Below) Other Gastrointestinal History: colitis, fatty liver Genitourinary History: Reports: UTI, 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, Musculoskeletal History: Reports: Back Pain, Chronic Other Musculoskeletal History: s/p reivision L4-S1 06/16/17 Neurological History: Reports: Migraines Psychiatric History: Reports: ADHD, Anxiety, Bipolar, Depression, Psych Hospitalization(s), Psychosis, PTSD, Suicide Attempt Other Psychiatric History: suicide attempt Endocrine/Metabolic History: Reports: Hypothyroidism, Obesity/BMI 30+, Vitamin D Deficiency Hematologic History: Reports: B12 Deficiency Immunologic History: Reports: None Oncologic (Cancer) History: Reports: None Dermatologic History: Reports: None - Infectious Disease History Infectious Disease History: Reports: Chicken Pox - Past Surgical History HEENT Surgical History: Reports: None GI Surgical History: Reports: Bariatric Procedure, Cholecystectomy, Colonoscopy , EGD, Polypectomy Female Surgical History: Reports: Section, Hysterectomy, Salpingo- Oophorectomy Neurological Surgical History: Reports: Lumbar Spine, Other (See Below) Other Neurological Surgeries/Procedures: 6 screws and cage in back Musculoskeletal Surgical History: Reports: Arthroscopic Knee, Other (See Below) Other Musculoskeletal Surgeries/Procedures:: back surgery Sep 19 Social & Family History - Family History Family Medical History: Noncontributory - Tobacco Use Smoking Status *Q: Former Smoker Years of Tobacco use: 1 Packs/Tins Daily: 1 Used Tobacco, but Quit: Yes Month Tobacco Last Used: 2015 Second Hand Smoke Exposure: No - Caffeine Use Caffeine Use: Reports: None - Alcohol Use Days Per Week of Alcohol Use: 0 - Recreational Drug Use Recreational Drug Use: No Drug Use in Last 12 Months: No Recreational Drug Type: Reports: Marijuana/Hashish - Living Situation & Occupation Living situation: Reports: , Single Occupation: Disabled ED ROS GENERAL - Review of Systems Review Of Systems: See Below Constitutional: Reports: No Symptoms HEENT: Reports: No Symptoms Respiratory: Reports: No Symptoms Cardiovascular: Reports: No Symptoms Endocrine: Reports: No Symptoms GI/Abdominal: Reports: Nausea Musculoskeletal: Reports: No Symptoms - Physical Exam Exam: See Below Text/Narrative:: pt arrived mildly nauseated an headache which is accross her entire forehead. Exam Limited By: No Limitations General Appearance: Alert, Anxious, Moderate Distress, Other (pupils are equal and reactive. ) Ears: Normal TMs Nose: Normal Inspection Throat/Mouth: Normal Inspection Head Exam: Atraumatic Neck: Normal Inspection Respiratory/Chest: No Respiratory Distress Cardiovascular: Regular Rate, Rhythm GI/Abdominal: Soft, Non-Tender (Female) Exam: Deferred Rectal (Female) Exam: Deferred Neuro Exam (Abbreviated): Alert, Oriented, Normal Cognition Back Exam: Normal Inspection Extremities: Normal Inspection Psychiatric: Anxious Course - Vital Signs Last Recorded V/S: Last Vital Signs Temp 37.9 C 09/14/17 13:13 Pulse 89 09/14/17 13:13 Resp 18 09/14/17 13:13 BP 119/79 09/14/17 13:13 Pulse Ox 95 09/14/17 13:13 - Orders/Labs/Meds Meds: Medications Discontinued Medications Generic Name Dose Route Start Last Admin Trade Name Freq PRN Reason Stop Dose Admin Ketorolac Tromethamine 60 mg 09/14/17 14:20 09/14/17 14:25 Toradol IM 09/14/17 14:21 60 mg ONETIME ONE Administration Ondansetron HCl 4 mg 09/14/17 14:21 09/14/17 14:25 Zofran Odt PO 09/14/17 14:22 4 mg ONETIME ONE Administration Sumatriptan Succinate 6 mg 09/14/17 14:14 09/14/17 14:25 Imitrex SUBCUT 09/14/17 14:15 6 mg ONETIME ONE Administration Sumatriptan Succinate 50 mg 09/14/17 14:53 Imitrex PO 09/14/17 14:54 ONETIME ONE - Re-Assessments/Exams Free Text/Narrative Re-Assessment/Exam: 09/14/17 15:22 Pt was given imitrex 6mg subq and torodol 60mg im. In 10 minutes her pain went from a 9 to a 4-5. She was given zoforan and her nausea was better. Departure - Departure Time of Disposition: 14:54 Disposition: Home, Self-Care 01 Condition: Fair Clinical Impression: Migraine - Discharge Information Instructions: Migraine Headache, [id number] Referrals: Sandra Alford PA [Primary Care Provider] - Forms: ED Department Discharge Care Plan Goals: fill imetrex on Thursday, pt will have on imitrex 50 mg at home, rest, push fluids.
== END 2017-09-14 15:13 | disposition home or self-care (01) ==
LOC: JP.ED 12:57
DX: G43.909 Migraine, unspecified, not intractable, without status migrainosus (principal); K21.9 Gastro-esophageal reflux disease without esophagitis; J45.909 Unspecified asthma, uncomplicated; F31.9 Bipolar disorder, unspecified; E03.9 Hypothyroidism, unspecified; Z87.891 Personal history of nicotine dependence; Z88.0 Allergy status to penicillin; Z88.8 Allergy status to other drugs, medicaments and biological substances; Z91.040 Latex allergy status; Z79.899 Other long term (current) drug therapy
CPT/HCPCS: 96372; 99283-25; A9270-GY; J1885; J3030

== ENCOUNTER 2017-09-23 17:48 | Emergency (ER) | payer MEDICAID ==
[2017-09-23 19:34] VITALS: BP 113/72
[2017-09-23] MEDS ORDERED: SUMAtriptan 6 MG/0.5 ML SDV SUBCUT ONE (19:53)
--- NOTE | 2017-09-23 20:25 | EDM.PDOC ---
ED HPI GENERAL MEDICAL PROBLEM - General Chief Complaint: Headache Stated Complaint: MIGRAINE / NAUSEA Time Seen by Provider: 09/23/17 19:45 Source of Information: Reports: Patient History Limitations: Reports: No Limitations - History of Present Illness INITIAL COMMENTS - FREE TEXT/NARRATIVE: 37-year-old female with a chronic history of vascular headache presents with a headache for the past 5 hours. It is bilateral, throbbing, with some mild photophobia and mild nausea no vomiting. It has responded to Imitrex in the past but she doesn't have any. She has oral Imitrex but lost it in her recent move. No trauma. No recent illness or fever. Onset: Sudden Duration: Hour(s): (5 hours) Location: Reports: Head Headache Pain Score (Numeric/FACES): 9 - Related Data Allergies Allergy/AdvReac Type Severity Reaction Status Date / Time bupropion [From Wellbutrin] Allergy Other Verified 09/23/17 19:34 latex Allergy Rash Verified 09/23/17 19:34 pantoprazole sodium Allergy Rash Verified 09/23/17 19:34 [From Protonix] Penicillins Allergy Rash Verified 09/23/17 19:34 fentanyl AdvReac Delusions Verified 09/23/17 19:34 promethazine HCl AdvReac Delusions Verified 09/23/17 19:34 [From Phenergan] Home Meds: Home Meds Doxepin [SINEquan] 75 mg PO BEDTIME 11/30/15 [History] QUEtiapine Fumarate [Quetiapine Fumarate] 300 mg PO BEDTIME 12/17/15 [History] Albuterol Sulfate [Proair Hfa] 2 puff IH Q6H PRN 03/20/16 [History] Omeprazole 40 mg PO ACBREAKFAST 03/20/16 [History] OLANZapine [Olanzapine] 5 mg PO BID 04/23/16 [History] Levothyroxine 0.175 mcg PO DAILY 07/19/16 [History] Cyanocobalamin (Vitamin B-12) [Vitamin B-12] 1,000 mcg PO DAILY 07/22/16 [ History] Prazosin [Minpress] 1 mg PO BEDTIME 07/22/16 [History] Rizatriptan Benzoate [Maxalt] 10 mg PO ASDIRECTED PRN 07/22/16 [History] Dicyclomine [Bentyl] 10 mg PO QID 07/24/16 [History] Zolpidem Tartrate [Ambien] 10 mg PO BEDTIME 07/24/16 [History] Ondansetron [Zofran ODT] 4 mg PO Q4H PRN #30 tab.dis 07/28/16 [Rx] Fluticasone/Vilanterol [Breo Ellipta 200-25 Mcg INH] 1 each IH DAILY 09/06/16 [ History] Celecoxib [CeleBREX] 200 mg PO DAILY #14 cap 02/20/17 [Rx] DULoxetine [Cymbalta] 2 tab PO DAILY 05/28/17 [History] Cyclobenzaprine [Flexeril] 10 mg PO QID PRN 05/31/17 [History] hydrOXYzine HCl [hydrOXYzine] 25 mg PO Q8HR PRN #90 tablet 06/21/17 [Rx] Baclofen [Baclofen] 10 mg PO BEDTIME 09/23/17 [History] Loperamide HCl [Loperamide] 2 mg PO ASDIRECTED 09/23/17 [History] SUMAtriptan [Imitrex] 50 mg PO ASDIRECTED 09/23/17 [History] Sucralfate [Sucralfate] 1 gm PO QID 09/23/17 [History] lamoTRIgine [lamoTRIgine] 200 mg PO DAILY 09/23/17 [History] Past Medical History HEENT History: Reports: Impaired Vision Other HEENT History: wears glasses Cardiovascular History: Reports: High Cholesterol Respiratory History: Reports: Asthma, Bronchitis, Recurrent, Sleep Apnea Gastrointestinal History: Reports: Chronic Constipation, Chronic Diarrhea, Colon Polyp, GERD, GI Bleed, Irritable Bowel Syndrome, Other (See Below) Other Gastrointestinal History: colitis, fatty liver Genitourinary History: Reports: UTI, Recurrent 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: Dysfunctional Uterine Bleeding, Musculoskeletal History: Reports: Back Pain, Chronic Other Musculoskeletal History: s/p reivision L4-S1 06/16/17 Neurological History: Reports: Migraines Psychiatric History: Reports: ADHD, Anxiety, Bipolar, Depression, Psych Hospitalization(s), Psychosis, PTSD, Suicide Attempt Other Psychiatric History: suicide attempt Endocrine/Metabolic History: Reports: Hypothyroidism, Obesity/BMI 30+, Vitamin D Deficiency Hematologic History: Reports: B12 Deficiency Immunologic History: Reports: None Oncologic (Cancer) History: Reports: None Dermatologic History: Reports: None - Infectious Disease History Infectious Disease History: Reports: Chicken Pox - Past Surgical History HEENT Surgical History: Reports: None GI Surgical History: Reports: Bariatric Procedure, Cholecystectomy, Colonoscopy , EGD, Polypectomy Female Surgical History: Reports: Section, Hysterectomy, Salpingo- Oophorectomy Neurological Surgical History: Reports: Lumbar Spine, Other (See Below) Other Neurological Surgeries/Procedures: 6 screws and cage in back Musculoskeletal Surgical History: Reports: Arthroscopic Knee, Other (See Below) Other Musculoskeletal Surgeries/Procedures:: back surgery Sep 19 Social & Family History - Family History Family Medical History: Noncontributory - Tobacco Use Smoking Status *Q: Current Status Unknown Years of Tobacco use: 1 Packs/Tins Daily: 1 Used Tobacco, but Quit: Yes Month Tobacco Last Used: 2015 Second Hand Smoke Exposure: No - Caffeine Use Caffeine Use: Reports: Soda - Alcohol Use Days Per Week of Alcohol Use: 0 - Recreational Drug Use Recreational Drug Use: No Drug Use in Last 12 Months: No Recreational Drug Type: Reports: Marijuana/Hashish - Living Situation & Occupation Living situation: Reports: , Single Occupation: Disabled ED ROS GENERAL - Review of Systems Review Of Systems: See Below Constitutional: Reports: Malaise. Denies: Fever, Chills HEENT: Reports: Other (Mild photophobia) Respiratory: Denies: Shortness of Breath Cardiovascular: Denies: Chest Pain GI/Abdominal: Reports: Nausea. Denies: Vomiting Skin: Reports: No Symptoms Neurological: Reports: Headache - Physical Exam Exam: See Below Exam Limited By: No Limitations General Appearance: Alert, Mild Distress (Looks uncomfortable) Eye Exam: Bilateral Eye: Normal Inspection (Sensitive to light) Head Exam: Atraumatic Neck: Supple Respiratory/Chest: No Respiratory Distress Neuro Exam (Abbreviated): Alert, Oriented, No Motor/Sensory Deficits, Other (No asymmetric weakness, walks without difficulty, speech is clear) Course - Vital Signs Last Recorded V/S: Last Vital Signs Temp 97.5 F 09/23/17 19:31 Pulse 83 09/23/17 19:31 Resp 12 09/23/17 19:31 BP 113/72 09/23/17 19:31 Pulse Ox 95 09/23/17 19:31 - Orders/Labs/Meds Meds: Medications Discontinued Medications Generic Name Dose Route Start Last Admin Trade Name Rianna PRN Reason Stop Dose Admin Sumatriptan Succinate 6 mg 09/23/17 19:53 09/23/17 19:58 Imitrex SUBCUT 09/23/17 19:54 6 mg ONETIME ONE Administration - Re-Assessments/Exams Free Text/Narrative Re-Assessment/Exam: 09/23/17 20:23 Patient was given 6 mg of subcutaneous Imitrex, and fortunately within a half- hour her headache was "much better". She was discharged with instructions to rest and talk to her primary provider about getting an Imitrex refill. Departure - Departure Time of Disposition: 20:31 Disposition: Home, Self-Care 01 Condition: Good Clinical Impression: Migraine - Discharge Information Instructions: Migraine Headache, [id number] Referrals: Sandra Alford PA [Primary Care Provider] - Forms: ED Department Discharge Care Plan Goals: Rest tonight, increase activity as tolerated. Continue your other regular medications. Talk to your regular physician about a refill of Imitrex, possibly even the injectable form. Return if worsening
== END 2017-09-23 20:32 | disposition home or self-care (01) ==
LOC: JP.ED 17:48
DX: G43.909 Migraine, unspecified, not intractable, without status migrainosus (principal); E78.00 Pure hypercholesterolemia, unspecified; E03.9 Hypothyroidism, unspecified; Z91.040 Latex allergy status; Z88.8 Allergy status to other drugs, medicaments and biological substances; Z88.0 Allergy status to penicillin; Z79.899 Other long term (current) drug therapy
CPT/HCPCS: 96372; 99284; J3030

== ENCOUNTER 2017-10-03 21:48 | Emergency (ER) | payer MEDICAID ==
[2017-10-03 22:16] VITALS: BP 128/86
--- NOTE | 2017-10-03 22:55 | EDM.PDOC ---
ED HPI GENERAL MEDICAL PROBLEM - General Chief Complaint: Lower Extremity Injury/Pain Stated Complaint: RIGHT KNEE PAIN Time Seen by Provider: 10/03/17 22:34 Source of Information: Reports: Patient, Old Records, RN Notes Reviewed History Limitations: Reports: No Limitations - History of Present Illness INITIAL COMMENTS - FREE TEXT/NARRATIVE: 37-year-old female presents emergency department day complaint of pain in her right knee she has visited with orthopedics I did review the notes there is concern for possible ACL tear she is set up for an MRI on Thursday also reviewed the [place] prescription drug monitoring program which show she has used hydrocodone in the past however last prescription was filled on August 27 120 tablets good for 20 days - Related Data Allergies Allergy/AdvReac Type Severity Reaction Status Date / Time bupropion [From Wellbutrin] Allergy Other Verified 09/23/17 19:34 latex Allergy Rash Verified 09/23/17 19:34 pantoprazole sodium Allergy Rash Verified 09/23/17 19:34 [From Protonix] Penicillins Allergy Rash Verified 09/23/17 19:34 fentanyl AdvReac Delusions Verified 09/23/17 19:34 promethazine HCl AdvReac Delusions Verified 09/23/17 19:34 [From Phenergan] Home Meds: Home Meds Doxepin [SINEquan] 75 mg PO BEDTIME 11/30/15 [History] QUEtiapine Fumarate [Quetiapine Fumarate] 300 mg PO BEDTIME 12/17/15 [History] Albuterol Sulfate [Proair Hfa] 2 puff IH Q6H PRN 03/20/16 [History] Omeprazole 40 mg PO ACBREAKFAST 03/20/16 [History] OLANZapine [Olanzapine] 5 mg PO BID 04/23/16 [History] Levothyroxine 0.175 mcg PO DAILY 07/19/16 [History] Cyanocobalamin (Vitamin B-12) [Vitamin B-12] 1,000 mcg PO DAILY 07/22/16 [ History] Prazosin [Minpress] 1 mg PO BEDTIME 07/22/16 [History] Rizatriptan Benzoate [Maxalt] 10 mg PO ASDIRECTED PRN 07/22/16 [History] Dicyclomine [Bentyl] 10 mg PO QID 07/24/16 [History] Zolpidem Tartrate [Ambien] 10 mg PO BEDTIME 07/24/16 [History] Ondansetron [Zofran ODT] 4 mg PO Q4H PRN #30 tab.dis 07/28/16 [Rx] Fluticasone/Vilanterol [Breo Ellipta 200-25 Mcg INH] 1 each IH DAILY 09/06/16 [ History] DULoxetine [Cymbalta] 2 tab PO DAILY 05/28/17 [History] hydrOXYzine HCl [hydrOXYzine] 25 mg PO Q8HR PRN #90 tablet 06/21/17 [Rx] Loperamide HCl [Loperamide] 2 mg PO ASDIRECTED 09/23/17 [History] Sucralfate [Sucralfate] 1 gm PO QID 09/23/17 [History] lamoTRIgine [lamoTRIgine] 200 mg PO DAILY 09/23/17 [History] Celecoxib [CeleBREX] 200 mg PO BID 10/01/17 [History] Cyclobenzaprine [Flexeril] 10 mg PO TID PRN 10/01/17 [History] Nicotine [Nicotine Patch] 1 patch TD DAILY 10/03/17 [History] Past Medical History HEENT History: Reports: Impaired Vision Other HEENT History: wears glasses Cardiovascular History: Reports: High Cholesterol Respiratory History: Reports: Asthma, Bronchitis, Recurrent, Sleep Apnea Gastrointestinal History: Reports: Chronic Constipation, Chronic Diarrhea, Colon Polyp, GERD, GI Bleed, Irritable Bowel Syndrome, Other (See Below) Other Gastrointestinal History: colitis, fatty liver Genitourinary History: Reports: UTI, Recurrent 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: Dysfunctional Uterine Bleeding, Musculoskeletal History: Reports: Back Pain, Chronic Other Musculoskeletal History: s/p reivision L4-S1 06/16/17 Neurological History: Reports: Migraines Psychiatric History: Reports: ADHD, Anxiety, Bipolar, Depression, Psych Hospitalization(s), Psychosis, PTSD, Suicide Attempt Other Psychiatric History: suicide attempt Endocrine/Metabolic History: Reports: Hypothyroidism, Obesity/BMI 30+, Vitamin D Deficiency Hematologic History: Reports: B12 Deficiency Immunologic History: Reports: None Oncologic (Cancer) History: Reports: None Dermatologic History: Reports: None - Infectious Disease History Infectious Disease History: Reports: Chicken Pox - Past Surgical History HEENT Surgical History: Reports: None GI Surgical History: Reports: Bariatric Procedure, Cholecystectomy, Colonoscopy , EGD, Polypectomy Female Surgical History: Reports: Section, Hysterectomy, Salpingo- Oophorectomy Neurological Surgical History: Reports: Lumbar Spine, Other (See Below) Other Neurological Surgeries/Procedures: 6 screws and cage in back Musculoskeletal Surgical History: Reports: Arthroscopic Knee, Other (See Below) Other Musculoskeletal Surgeries/Procedures:: back surgery Sep 19 Social & Family History - Family History Family Medical History: Noncontributory - Tobacco Use Smoking Status *Q: Former Smoker Years of Tobacco use: 10 Packs/Tins Daily: 0.5 Used Tobacco, but Quit: Yes Month Tobacco Last Used: june Second Hand Smoke Exposure: No - Caffeine Use Caffeine Use: Reports: Soda - Alcohol Use Days Per Week of Alcohol Use: 0 - Recreational Drug Use Recreational Drug Use: No Drug Use in Last 12 Months: No Recreational Drug Type: Reports: Marijuana/Hashish - Living Situation & Occupation Living situation: Reports: , Single Occupation: Disabled Review of Systems - Review of Systems Review Of Systems: See Below Musculoskeletal: Reports: Joint Pain (Right knee) Neurological: Reports: No Symptoms ED EXAM, GENERAL - Physical Exam Exam: See Below Free Text/Narrative:: Examination of the right knee difficult to get exam is any palpation to the patella to the joint line Coles valgus maneuvers Lockman's maneuvers drawer maneuver elicited pain Exam Limited By: No Limitations General Appearance: Alert, WD/WN, No Apparent Distress Course - Vital Signs Last Recorded V/S: Last Vital Signs Temp 98.1 F 10/03/17 22:25 Pulse 115 H 10/03/17 22:25 Resp 16 10/03/17 22:25 BP 128/86 10/03/17 22:25 Pulse Ox 97 10/03/17 22:25 Departure - Departure Time of Disposition: 22:54 Disposition: Home, Self-Care 01 Condition: Poor Clinical Impression: Right knee pain Qualifiers: Chronicity: acute Qualified Code(s): M25.561 - Pain in right knee - Discharge Information Referrals: Sandra Alford PA [Primary Care Provider] - Additional Instructions: Continue using ibuprofen for baseline pain control, use hydrocodone for breakthrough pain, keep your follow-up appointment for your MRI on Thursday, then follow-up with orthopedics after your MRI - Assessment/Plan Plan: Assessment Acuity = acute Site and laterality = right knee pain Etiology = concern for ACL tear Manifestations = none Location of injury = Home Lab values = none Plan Prescription written for hydrocodone 5/325 one tablets by mouth every 4-6 hours when necessary total #8, she will have an MRI on Thursday and then follow-up with orthopedics after the MRI This note was dictated using [employer] voice recognition software please call with any questions on syntax or megan.
== END 2017-10-03 23:01 | disposition home or self-care (01) ==
LOC: JP.ED 21:48
DX: M25.561 Pain in right knee (principal); Z87.891 Personal history of nicotine dependence; E78.00 Pure hypercholesterolemia, unspecified; K21.9 Gastro-esophageal reflux disease without esophagitis; F31.9 Bipolar disorder, unspecified; E03.9 Hypothyroidism, unspecified; E66.9 Obesity, unspecified; Z98.890 Other specified postprocedural states; Z79.899 Other long term (current) drug therapy; Z88.0 Allergy status to penicillin; Z88.8 Allergy status to other drugs, medicaments and biological substances; Z91.040 Latex allergy status; Z68.32 Body mass index [BMI] 32.0-32.9, adult
CPT/HCPCS: 99283

== ENCOUNTER 2017-10-14 12:51 | Emergency (ER) | payer MEDICAID ==
[2017-10-14 13:08] VITALS: BP 115/73
[2017-10-14] MEDS ORDERED: Ondansetron 4 MG Tab.DIS PO ONE (13:35)
[2017-10-14] MEDS ORDERED: Ketorolac 60 MG/2 ML SDV IM ONE (13:38)
[2017-10-14] MEDS ORDERED: Meclizine 25 MG Tab PO ONE (13:38)
--- NOTE | 2017-10-14 13:44 | EDM.PDOC ---
ED HPI GENERAL MEDICAL PROBLEM - General Chief Complaint: Head Injury Stated Complaint: FELL HIT HEAD Time Seen by Provider: 10/14/17 13:30 Source of Information: Reports: Patient, Old Records History Limitations: Reports: No Limitations - History of Present Illness INITIAL COMMENTS - FREE TEXT/NARRATIVE: 37 yo female slipped on the ice and hit that back of her head. No LOC. Has dizziness and mild nausea. Reports mild neck pain. Has walked since the injury. Is not on warfarin. No bleeding reported. Onset: Today Onset Date: 10/14/17 Onset Time: 12:20 Duration: Minutes: Location: Reports: Head, Neck Quality: Reports: Ache Severity: Moderate Improves with: Reports: None Worsens with: Reports: Movement Context: Reports: Trauma Associated Symptoms: Reports: Headaches, Nausea/Vomiting (no vomiting). 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 (see below) (none) head Pain Score (Numeric/FACES): 9 - Related Data Allergies Allergy/AdvReac Type Severity Reaction Status Date / Time bupropion [From Wellbutrin] Allergy Other Verified 10/14/17 13:21 latex Allergy Rash Verified 10/14/17 13:21 pantoprazole sodium Allergy Rash Verified 10/14/17 13:21 [From Protonix] Penicillins Allergy Rash Verified 10/14/17 13:21 fentanyl AdvReac Delusions Verified 10/14/17 13:21 promethazine HCl AdvReac Delusions Verified 10/14/17 13:21 [From Phenergan] Home Meds: Home Meds Doxepin [SINEquan] 75 mg PO BEDTIME 11/30/15 [History] QUEtiapine Fumarate [Quetiapine Fumarate] 300 mg PO BEDTIME 12/17/15 [History] Albuterol Sulfate [Proair Hfa] 2 puff IH Q6H PRN 03/20/16 [History] Omeprazole 40 mg PO ACBREAKFAST 03/20/16 [History] OLANZapine [Olanzapine] 5 mg PO BID 04/23/16 [History] Levothyroxine 0.175 mcg PO DAILY 07/19/16 [History] Cyanocobalamin (Vitamin B-12) [Vitamin B-12] 1,000 mcg PO DAILY 07/22/16 [ History] Prazosin [Minpress] 1 mg PO BEDTIME 07/22/16 [History] Rizatriptan Benzoate [Maxalt] 10 mg PO ASDIRECTED PRN 07/22/16 [History] Dicyclomine [Bentyl] 10 mg PO QID 07/24/16 [History] Zolpidem Tartrate [Ambien] 10 mg PO BEDTIME 07/24/16 [History] Ondansetron [Zofran ODT] 4 mg PO Q4H PRN #30 tab.dis 07/28/16 [Rx] Fluticasone/Vilanterol [Breo Ellipta 200-25 Mcg INH] 1 each IH DAILY 09/06/16 [ History] DULoxetine [Cymbalta] 2 tab PO DAILY 05/28/17 [History] hydrOXYzine HCl [hydrOXYzine] 25 mg PO Q8HR PRN #90 tablet 06/21/17 [Rx] Loperamide HCl [Loperamide] 2 mg PO ASDIRECTED 09/23/17 [History] Sucralfate [Sucralfate] 1 gm PO QID 09/23/17 [History] lamoTRIgine [lamoTRIgine] 200 mg PO DAILY 09/23/17 [History] Celecoxib [CeleBREX] 200 mg PO BID 10/01/17 [History] Cyclobenzaprine [Flexeril] 10 mg PO TID PRN 10/01/17 [History] Nicotine [Nicotine Patch] 1 patch TD DAILY 10/03/17 [History] Past Medical History HEENT History: Reports: Impaired Vision Other HEENT History: wears glasses Cardiovascular History: Reports: High Cholesterol Respiratory History: Reports: Asthma, Bronchitis, Recurrent, Sleep Apnea Gastrointestinal History: Reports: Chronic Constipation, Chronic Diarrhea, Colon Polyp, GERD, GI Bleed, Irritable Bowel Syndrome, Other (See Below) Other Gastrointestinal History: colitis, fatty liver Genitourinary History: Reports: UTI, Recurrent 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: Dysfunctional Uterine Bleeding, Musculoskeletal History: Reports: Back Pain, Chronic Other Musculoskeletal History: s/p reivision L4-S1 06/16/17 Neurological History: Reports: Migraines Psychiatric History: Reports: ADHD, Anxiety, Bipolar, Depression, Psych Hospitalization(s), Psychosis, PTSD, Suicide Attempt Other Psychiatric History: suicide attempt Endocrine/Metabolic History: Reports: Hypothyroidism, Obesity/BMI 30+, Vitamin D Deficiency Hematologic History: Reports: B12 Deficiency Immunologic History: Reports: None Oncologic (Cancer) History: Reports: None Dermatologic History: Reports: None - Infectious Disease History Infectious Disease History: Reports: Chicken Pox - Past Surgical History HEENT Surgical History: Reports: None GI Surgical History: Reports: Bariatric Procedure, Cholecystectomy, Colonoscopy , EGD, Polypectomy Female Surgical History: Reports: Section, Hysterectomy, Salpingo- Oophorectomy Neurological Surgical History: Reports: Lumbar Spine, Other (See Below) Other Neurological Surgeries/Procedures: 6 screws and cage in back Musculoskeletal Surgical History: Reports: Arthroscopic Knee, Other (See Below) Other Musculoskeletal Surgeries/Procedures:: back surgery Sep 19 Social & Family History - Family History Family Medical History: Noncontributory - Tobacco Use Smoking Status *Q: Former Smoker Years of Tobacco use: 10 Packs/Tins Daily: 0.5 Used Tobacco, but Quit: Yes Month Tobacco Last Used: nov Second Hand Smoke Exposure: No - Caffeine Use Caffeine Use: Reports: Soda - Alcohol Use Days Per Week of Alcohol Use: 0 - Recreational Drug Use Recreational Drug Use: No Drug Use in Last 12 Months: No Recreational Drug Type: Reports: Marijuana/Hashish - Living Situation & Occupation Living situation: Reports: , Single Occupation: Disabled ED ROS GENERAL - Review of Systems Review Of Systems: See Below Constitutional: Reports: No Symptoms HEENT: Reports: No Symptoms Respiratory: Reports: No Symptoms Cardiovascular: Reports: No Symptoms GI/Abdominal: Reports: Nausea. Denies: Vomiting : Reports: No Symptoms Musculoskeletal: Reports: Neck Pain Skin: Reports: No Symptoms Neurological: Reports: Dizziness, Headache Psychiatric: Reports: No Symptoms ED EXAM, HEAD INJURY - Physical Exam Exam: See Below Exam Limited By: No Limitations General Appearance: Alert, WD/WN, No Apparent Distress, Obese Head: Atraumatic, Normocephalic, Scalp Tenderness. No: Scalp Lacerations, Scalp Swelling, Scalp Abrasions, Scalp Ecchymosis, Scalp Hematoma, Active Bleeding, Snyder's Sign, Facial Ecchymosis, Facial Lacerations, Facial Swelling , Facial Tenderness, Raccoon Eyes Nexus Criteria: No: Evidence of Intoxication, Altered Level of Consciousness, Focal Neurological Deficit Eyes: Bilateral Eye: EOMI, Normal Inspection, PERRL Ears: Normal External Exam, Normal Canal, Hearing Grossly Normal, Normal TMs Nose: Normal Inspection, Normal Mucousa, No Blood Throat/Mouth: Normal Inspection, Normal Lips, Normal Oropharynx, Normal Voice, No Airway Compromise Neck: Non-Tender, Normal Alignment, Normal Inspection Respiratory: No Respiratory Distress, Lungs Clear, Normal Breath Sounds, No Accessory Muscle Use Cardiovascular: Regular Rate, Rhythm GI/Abdominal Exam: Normal Bowel Sounds, Soft, Non-Tender Back Exam: Normal Inspection, Full Range of Motion. 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 As Tested, No Motor/Sensory Deficits, Alert, Normal Mood/Affect, Oriented x 3 Skin: Normal Color, Warm/Dry - Cammie Coma Score Best Eye Response (Cammie): (4) Open Spontaneously Best Verbal Response (Garrett): (5) Oriented Best Motor Response (Garrett): (6) Obeys Commands Course - Vital Signs Last Recorded V/S: Last Vital Signs Temp 36.6 C 10/14/17 13:25 Pulse 83 10/14/17 13:25 Resp 16 10/14/17 13:25 BP 115/73 10/14/17 13:25 Pulse Ox 96 10/14/17 13:25 - Orders/Labs/Meds Meds: Medications Discontinued Medications Generic Name Dose Route Start Last Admin Trade Name Rianna PRN Reason Stop Dose Admin Acetaminophen Confirm 10/14/17 14:46 10/14/17 14:49 Tylenol Extra Strength Administered 10/14/17 14:47 Not Given Dose 1,000 mg .ROUTE .STK-MED ONE Acetaminophen 1,000 mg 10/14/17 14:47 10/14/17 14:50 Tylenol Extra Strength PO 10/14/17 14:48 1,000 mg ONETIME ONE Administration Ketorolac Tromethamine 60 mg 10/14/17 13:38 Toradol IM 10/14/17 13:39 ONETIME ONE Ketorolac Tromethamine 30 mg 10/14/17 13:45 10/14/17 13:55 Toradol IM 10/14/17 13:46 30 mg ONETIME ONE Administration Meclizine HCl 25 mg 10/14/17 13:38 10/14/17 13:55 Antivert PO 10/14/17 13:39 25 mg ONETIME ONE Administration Ondansetron HCl 4 mg 10/14/17 13:35 10/14/17 13:55 Zofran Odt PO 10/14/17 13:36 4 mg ONETIME ONE Administration Departure - Departure Time of Disposition: 14:53 Disposition: Home, Self-Care 01 Condition: Fair Clinical Impression: Concussion injury of brain - Discharge Information Referrals: Sandra Alford PA [Primary Care Provider] - Forms: ED Department Discharge
[2017-10-14] MEDS ORDERED: Ketorolac 30 MG/ML SDV IM ONE (13:45)
[2017-10-14] MEDS ORDERED: Acetaminophen 500 MG Tab ONE (14:46)
[2017-10-14] MEDS ORDERED: Acetaminophen 500 MG Tab PO ONE (14:47)
== END 2017-10-14 15:08 | disposition home or self-care (01) ==
LOC: JP.ED 12:51
DX: S06.0X0A Concussion without loss of consciousness, initial encounter (principal); E78.00 Pure hypercholesterolemia, unspecified; Z87.891 Personal history of nicotine dependence; Z91.040 Latex allergy status; Z88.8 Allergy status to other drugs, medicaments and biological substances; Z88.0 Allergy status to penicillin; Z79.899 Other long term (current) drug therapy; W00.0XXA Fall on same level due to ice and snow, initial encounter
CPT/HCPCS: 96372; 99283; A9270; J1885